=== PATIENT | male | born 1945 | race Caucasian/White ===

== ENCOUNTER 2020-03-09 17:30 | Inpatient (IN) | payer MEDICARE ==
[~2020-03-09] VITALS: Ht 188 cm; Wt 79.3 kg
[2020-03-09 18:02] LABS: BASOPHILS % (AUTO) 0 % (0-10); EOSINOPHILS # (AUTO) 0.1 10^3/uL (0.0-0.3); EOSINOPHILS % (AUTO) 0 % (0-10); HEMATOCRIT 49 % (40-54); HEMOGLOBIN 15.9 g/dL (13.3-17.7); LYMPHOCYTES % (AUTO) 17 % (12-44); MEAN CORPUSCULAR HEMOGLOBIN 30 pg (25-34); MEAN CORPUSCULAR HGB CONC 33 g/dL (32-36); MEAN CORPUSCULAR VOLUME 91 fL (80-99); MONOCYTES # (AUTO) 0.8 10^3/uL (0.0-1.0); MONOCYTES % (AUTO) 7 % (0-12); NEUTROPHILS # (AUTO) 9.2 10^3/uL (1.8-7.8); NEUTROPHILS % (AUTO) 76 % (42-75); PLATELET COUNT 323 10^3/uL (130-400); WHITE BLOOD COUNT 12.2 10^3/uL (4.3-11.0)
[2020-03-09 18:05] LABS: ALBUMIN 4.2 GM/DL (3.2-4.5); POTASSIUM 3.9 MMOL/L (3.6-5.0)
[2020-03-09 18:06] LABS: CALCIUM 9.1 MG/DL (8.5-10.1)
[2020-03-09 18:07] LABS: TOTAL PROTEIN 7.7 GM/DL (6.4-8.2)
[2020-03-09 18:09] LABS: BILIRUBIN,TOTAL 1.1 MG/DL (0.1-1.0)
[2020-03-09 18:11] LABS: CREATININE SERUM 1.69 MG/DL (0.60-1.30)
--- NOTE | 2020-03-09 18:12 | ED Abdominal Pain ---
General Chief Complaint: Abdominal/GI Problems Stated Complaint: ABDOMINAL PAIN, BLOATING, CONSTIPATED Nursing Triage Note: PT STATES BLOATING THAT STARTED 3 WEEKS AGO, VOMITING, SWEATING, CHILLS, DIARRHEA, THAT ALL STOPPED LAST FRIDAY. ABD PAIN CONTINUED AND CONSTIPATION, MEDIUM SIZE SOFT BM YESTERDAY AFTER THE PT HAD BEEN TAKING DUCOLAX TABLETS. Sepsis Screen: No Definite Risk (NORBERT HOLLIDAY) History of Present Illness Date Seen by Provider: Mar 09, 2020 Time Seen by Provider: 17:50 Initial Comments Pt here for abdominal bloating present for last days. He state that until yesterday he had not had a bowel movement for 3 weeks. He reports it is normal for him to have a bowel movement every 10-14 days. He states that he took some dolculax yesterday which did help him have a medium sized soft bowel movement. He states that three weeks ago he had some vomiting and diarrhea, but has been fine since then. He as been eating normally until the few days when the boating started to increase he has had less appetite.Denies any blood in the stools or pain outside the uncomfortable bloating. Timing/Duration: 2-3 Days Severity/Quality: Mild Radiation: No Radiation Activities at Onset: None (NORBERT HOLLIDAY) Allergies and Home Medications Allergies Coded Allergies: No Known Drug Allergies (Unverified , 03/09/20) Home Medications No Active Prescriptions or Reported Meds Patient Home Medication List Home Medication List Reviewed: Yes (ANGEL CASTAÑEDA APRN) Review of Systems Review of Systems Constitutional: No chills, No fever, No weakness EENTM: No Nose Congestion, No Throat Pain Respiratory: Denies Cough, Denies Shortness of Air; Wheezing (chronic) Cardiovascular: Denies Chest Pain, Denies Edema, Denies Syncope Gastrointestinal: Abdomen Distended, Constipated; Denies Diarrhea, Denies Nausea; Poor Appetite; Denies Vomiting Genitourinary: Denies Burning, Denies Frequency Musculoskeletal: No back pain Skin: No lesions, No lumps Psychiatric/Neurological: Denies Anxiety, Denies Headache, Denies Numbness, Denies Tingling (NORBERT HOLLIDAY) Past Dzsohxl-Keycaw-Vgpomt Hx Patient Social History Alcohol Use: Denies Use Smoking Status: Current Everyday Smoker Type Used: Cigarettes Recent Infectious Disease Expo: No Recent Hopitalizations: No (NORBERT HOLLIDAY [employer] [facility]) Seasonal Allergies Seasonal Allergies: No ([facility]) Past Medical History Surgeries: Yes (EYES) Respiratory: Yes Asthma, Chronic Bronchitis, COPD Cardiac: No Neurological: No Genitourinary: No Gastrointestinal: Yes Chronic Constipation Musculoskeletal: No Endocrine: No HEENT: Yes Cataract Cancer: No Psychosocial: No Integumentary: No (NORBERT HOLLIDAY) Physical Exam Vital Signs Vital Signs - First Documented 03/09/20 17:41 Temp 35.3 Pulse 82 Resp 20 B/P (MAP) 141/94 (110) Pulse Ox 98 O2 Delivery Room Air (ANGEL CASTAÑEDA APRN) Vital Signs Capillary Refill : Less Than 3 Seconds (NORBERT HOLLIDAY [facility]) Height/Weight/BMI Height: '" Weight: lbs. oz. kg; 23.00 BMI Method: General Appearance: WD/WN, no apparent distress HEENT: PERRL/EOMI, normal ENT inspection, pharynx normal Neck: non-tender, full range of motion, supple Respiratory: chest non-tender, no respiratory distress, wheezing Cardiovascular: normal peripheral pulses, regular rate, rhythm Gastrointestinal: normal bowel sounds, non tender, distended Extremities: normal range of motion, non-tender, no pedal edema, no calf tenderness Back: normal inspection, no CVA tenderness, no vertebral tenderness Neurologic/Psychiatric: no motor/sensory deficits, alert, normal mood/affect, oriented x 3 Skin: normal color, warm/dry (NORBERT HOLLIDAY [employer] [facility]) Progress/Results/Core Measures Results/Orders Lab Results Laboratory Tests Test 03/09/20 17:45 Range/Units White Blood Count 12.2 H 4.3-11.0 10^3/uL Red Blood Count 5.35 4.30-5.52 10^6/uL Hemoglobin 15.9 13.3-17.7 g/dL Hematocrit 49 40-54 % Mean Corpuscular Volume 91 80-99 fL Mean Corpuscular Hemoglobin 30 25-34 pg Mean Corpuscular Hemoglobin Concent 33 32-36 g/dL Red Cell Distribution Width 13.5 10.0-14.5 % Platelet Count 323 130-400 10^3/uL Mean Platelet Volume 11.0 9.0-12.2 fL Immature Granulocyte % (Auto) 0 % Neutrophils (%) (Auto) 76 H 42-75 % Lymphocytes (%) (Auto) 17 12-44 % Monocytes (%) (Auto) 7 0-12 % Eosinophils (%) (Auto) 0 0-10 % Basophils (%) (Auto) 0 0-10 % Neutrophils # (Auto) 9.2 H 1.8-7.8 10^3/uL Lymphocytes # (Auto) 2.0 1.0-4.0 10^3/uL Monocytes # (Auto) 0.8 0.0-1.0 10^3/uL Eosinophils # (Auto) 0.1 0.0-0.3 10^3/uL Basophils # (Auto) 0.0 0.0-0.1 10^3/uL Immature Granulocyte # (Auto) 0.0 0.0-0.1 10^3/uL Sodium Level 139 135-145 MMOL/L Potassium Level 3.9 3.6-5.0 MMOL/L Chloride Level 103 98-107 MMOL/L Carbon Dioxide Level 23 21-32 MMOL/L Anion Gap 13 5-14 MMOL/L Blood Urea Nitrogen 23 H 7-18 MG/DL Creatinine 1.69 H 0.60-1.30 MG/DL Estimat Glomerular Filtration Rate 40 BUN/Creatinine Ratio 14 Glucose Level 109 H 70-105 MG/DL Calcium Level 9.1 8.5-10.1 MG/DL Corrected Calcium 8.9 8.5-10.1 MG/DL Total Bilirubin 1.1 H 0.1-1.0 MG/DL Aspartate Amino Transf (AST/SGOT) 15 5-34 U/L Alanine Aminotransferase (ALT/SGPT) 12 0-55 U/L Alkaline Phosphatase 83 40-136 U/L C-Reactive Protein High Sensitivity 1.50 H 0.00-0.50 MG/DL Total Protein 7.7 6.4-8.2 GM/DL Albumin 4.2 3.2-4.5 GM/DL Lipase 44 8-78 U/L (ANGEL CASTAÑEDA APRN) My Orders Orders - ANGEL CASTAÑEDA APRN Lipase (03/09/20 18:02) Ct Abdomen/Pelvis Wo (03/09/20 18:29) Benzocaine Extension Tube (Hurricaine Ex (03/09/20 19:30) Benzocaine Extension Tube (Hurricaine Ex (03/09/20 19:45) Carcinoembryonic Antigen (03/09/20 19:46) Chest 1 View, Ap/Pa Only (03/09/20 19:46) (ANGEL CASTAÑEDA APRN) Medications Given in ED Current Medications Medications Dose Ordered Sig/Vernon Route Start Time Stop Time Status Last Admin Dose Admin Benzocaine 1 ea ONCE ONCE XX 03/09/20 19:45 03/09/20 19:46 DC 03/09/20 19:45 1 EA (ANGEL CASTAÑEDA APRN) Vital Signs/I&O 03/09/20 17:41 Temp 35.3 Pulse 82 Resp 20 B/P (MAP) 141/94 (110) Pulse Ox 98 O2 Delivery Room Air (ANGEL CASTAÑEDA APRN) Blood Pressure Mean: 110 Diagnostic Imaging Diagonstic Imaging: CT Comments NAME: VINCE LEACH [facility] REC#: [id number] PT STATUS: REG ER : 1945 PHYSICIAN: ANGEL CASTAÑEDA APRN ADMIT DATE: 03/09/20/ER Draft Date of Exam:03/09/20 CT ABDOMEN/PELVIS WO PROCEDURE: CT abdomen and pelvis without contrast. TECHNIQUE: Multiple contiguous axial images were obtained through the abdomen and pelvis without the use of intravenous contrast. Auto Exposure Controls were utilized during the CT exam to meet ALARA standards for radiation dose reduction. INDICATION: Constipation. FINDINGS: Unenhanced images of the gallbladder, pancreas, adrenal glands and spleen are unremarkable. There is an approximately 1.5 cm low-density nodule in the posterior right hepatic lobe with suggestion of additional low-density nodules in the dome of the left lobe and more superiorly in the right lobe. Evaluation of kidneys is limited without intravenous contrast; however, no stone or hydronephrosis is identified. There is contrast opacification of the stomach and duodenum. There is moderate dilatation of small bowel loops, diffusely. There is also moderate amount of fluid distention of the ascending colon. Transverse colon and descending colon are decompressed. There is an annular region of mural thickening in the midportion of the ascending colon which may represent the obstruction. No free fluid is identified in the abdomen or pelvis and there is no evidence of pathologic adenopathy. Lower lumbar degenerative disc disease is noted. IMPRESSION: Findings are compatible with high-grade bowel obstruction that appears to be related to annular lesion in the mid ascending colon. This may represent colon cancer and clinical correlation would be of use. In addition, there are several low-density lesions throughout the liver which would indicate metastatic disease. Dictated on workstation # [id number] Dict: 03/09/201916 Trans: 03/09/201926 [id number] Interpreted by: JAIMEE NAVARRO MD Electronically signed by: (ANGEL CASTAÑEDA APRN) Departure Communication (Admissions) Spoke with Dr. Pike, will admit to medicine, consult him. Pain and nausea control. Nasogastric tube to decompress the proximal bowel. I have seen the patient as well as Norbert, agree with the plan of care. His abdomen is distended with high-pitched bowel sounds. After reviewing the CT we will insert a nasogastric tube. (ANGEL CASTAÑEDA APRN) Impression Primary Impression: Colonic obstruction Additional Impression: Apple core lesion of colon Disposition: ADMITTED INPATIENT Condition: Stable Admissions Decision to Admit Reason: Admit from ER (General) Decision to Admit/Date: Mar 09, 2020 Time/Decision to Admit Time: 19:24 (ANGEL CASTAÑEDA APRN) Departure-Patient Inst. Referrals: NO,LOCAL PHYSICIAN (PCP/Family) Primary Care Physician Scripts No Active Prescriptions or Reported Meds NORBERT HOLLIDAY MED STUD Mar 09, 2020 18:12 ANGEL CASTAÑEDA APRN Mar 09, 2020 19:25
--- NOTE | 2020-03-09 19:27 | Diagnostic Imaging Report ---
PROCEDURE: CT abdomen and pelvis without contrast. TECHNIQUE: Multiple contiguous axial images were obtained through the abdomen and pelvis without the use of intravenous contrast. Auto Exposure Controls were utilized during the CT exam to meet ALARA standards for radiation dose reduction. INDICATION: Constipation. FINDINGS: Unenhanced images of the gallbladder, pancreas, adrenal glands and spleen are unremarkable. There is an approximately 1.5 cm low-density nodule in the posterior right hepatic lobe with suggestion of additional low-density nodules in the dome of the left lobe and more superiorly in the right lobe. Evaluation of kidneys is limited without intravenous contrast; however, no stone or hydronephrosis is identified. There is contrast opacification of the stomach and duodenum. There is moderate dilatation of small bowel loops, diffusely. There is also moderate amount of fluid distention of the ascending colon. Transverse colon and descending colon are decompressed. There is an annular region of mural thickening in the midportion of the ascending colon which may represent the obstruction. No free fluid is identified in the abdomen or pelvis and there is no evidence of pathologic adenopathy. Lower lumbar degenerative disc disease is noted. IMPRESSION: Findings are compatible with high-grade bowel obstruction that appears to be related to annular lesion in the mid ascending colon. This may represent colon cancer and clinical correlation would be of use. In addition, there are several low-density lesions throughout the liver which would indicate metastatic disease. Dictated by: Dictated on workstation # [id number]
[2020-03-09] MEDS ORDERED: HURRICAINE EXT TUBE (BENZOCAINE) ONE (19:30)
[2020-03-09] MEDS ORDERED: HURRICAINE EXT TUBE (BENZOCAINE) XX ONE (19:45)
--- NOTE | 2020-03-09 19:45 | NUR ---
RIGHT NARE NGT 16FR PLACED BY Praneeth CASTAÑEDA APRN AND HOOKED TO LWS. APPROX 100CC OF BROWN GASTRIC CONTENT RETURN.
--- NOTE | 2020-03-09 20:09 | Consultation - Surgery ---
History of Present Illness History of Present Illness Patient Consulted On(cornelia/time) 03/09/20 20:03 Time Seen by Provider: 19:24 History of Present Illness Surgery asked to consult regarding Partial Bowel Obstruction. HPI per ED: PT STATES BLOATING THAT STARTED 3 WEEKS AGO, VOMITING, SWEATING, CHILLS, DIARRHEA, THAT ALL STOPPED LAST FRIDAY. ABD PAIN CONTINUED AND CONSTIPATION, MEDIUM SIZE SOFT BM YESTERDAY AFTER THE PT HAD BEEN TAKING DUCOLAX TABLETS. Pt here for abdominal bloating present for last days. He state that until yesterday he had not had a bowel movement for 3 weeks. He reports it is normal for him to have a bowel movement every 10-14 days. He states that he took some dolculax yesterday which did help him have a medium sized soft bowel movement. He states that three weeks ago he had some vomiting and diarrhea, but has been fine since then. He as been eating normally until the few days when the bloating started to increase he has had less appetite.Denies any blood in the stools or pain outside the uncomfortable bloating. Timing/Duration: 2-3 Days Severity/Quality: Mild Radiation: No Radiation Activities at Onset: None When I spoke to pt this evening he states that his belly is much more distended than it has ever been. He describes pain as 3-4 out of 10, across the entire abdomen that is dull. He states he has never had a colonoscopy. Denied any hx of melena or hematochezia. Allergies and Home Medications Allergies Coded Allergies: No Known Drug Allergies (Unverified , 03/09/20) Home Medications No Active Prescriptions or Reported Meds Patient Home Medication List Home Medication List Reviewed: Yes Past Nsdwbhd-Sbiiqp-Hczfdu Hx Patient Social History Drug of Choice: Denies Smoking Status: Current Everyday Smoker Type Used: Cigarettes Recent Hopitalizations: No Alcohol Use?: Yes Seasonal Allergies Seasonal Allergies: No Surgeries History of Surgeries: Yes (EYES) Respiratory History of Respiratory Disorde: Yes Respiratory Disorders: Asthma, Chronic Bronchitis, COPD Cardiovascular History of Cardiac Disorders: No Neurological History of Neurological Disord: No Reproductive System Hx Reproductive Disorders: No Sexually Transmitted Disease: No Genitourinary History of Genitourinary Disor: No Gastrointestinal History of Gastrointestinal Di: Yes Gastrointestinal Disorders: Chronic Constipation Musculoskeletal History of Musculoskeletal Dis: No Endocrine History of Endocrine Disorders: No HEENT History of HEENT Disorders: Yes HEENT Disorders: Cataract Cancer History of Cancer: No Psychosocial History of Psychiatric Problem: No Integumentary History of Skin or Integumenta: No Family Medical History Significant Family History: Diabetes (denies either his parent had DM) Review of Systems-General Constitutional: chills, diaphoresis, weakness, weight gain EENTM: No blurred vision, No double vision, No mouth pain, No mouth swelling, No throat pain, No throat swelling Respiratory: No dyspnea on exertion, No hemoptysis, No short of breath Cardiovascular: No chest pain, No edema, No palpitations Gastrointestinal: abdominal pain, constipation; No dysphagia, No jaundice; loss of appetite, nausea, vomiting Genitourinary: No dysuria, No frequency, No hematuria Musculoskeletal: joint pain, joint swelling, muscle stiffness Skin: No change in color, No change in hair/nails Psychiatric/Neurological: Denies Anxiety, Denies Depressed, Denies Seizure, Denies Tremors Other HEMATOLOGY: Pt denies any hx of abnormal bleeding or bruising Physical Exam-General Problems Physical Exam Vital Signs Vital Signs - First Documented 03/09/20 17:41 Temp 35.3 Pulse 82 Resp 20 B/P (MAP) 141/94 (110) Pulse Ox 98 O2 Delivery Room Air Capillary Refill : Less Than 3 Seconds General Appearance: WD/WN, mild distress Eyes: Bilateral Eye PERRL, Bilateral Eye EOMI HEENT: pharynx normal; No scleral icterus (R), No scleral icterus (L) Neck: non-tender, full range of motion Respiratory: lungs clear, normal breath sounds, no respiratory distress, no accessory muscle use Cardiovascular: regular rate, rhythm, no murmur Gastrointestinal: no organomegaly, distended (and tense); No guarding; tenderness (diffusely) Rectal: deferred Back: no CVA tenderness, no vertebral tenderness Extremities: normal range of motion, no pedal edema, no calf tenderness, normal capillary refill Neurologic/Psychiatric: change consultant II-XII nml as tested, no motor/sensory deficits, alert, normal mood/affect, oriented x 3 Skin: normal color, warm/dry Lymphatic: no adenopathy (axillary, cervical or inguinal) Data Review Labs Laboratory Tests 03/09/20 17:45: White Blood Count 12.2H, Red Blood Count 5.35, Hemoglobin 15.9, Hematocrit 49, Mean Corpuscular Volume 91, Mean Corpuscular Hemoglobin 30, Mean Corpuscular Hemoglobin Concent 33, Red Cell Distribution Width 13.5, Platelet Count 323, Mean Platelet Volume 11.0, Immature Granulocyte % (Auto) 0, Neutrophils (%) (Auto) 76H, Lymphocytes (%) (Auto) 17, Monocytes (%) (Auto) 7, Eosinophils (%) (Auto) 0, Basophils (%) (Auto) 0, Neutrophils # (Auto) 9.2H, Lymphocytes # (Auto) 2.0, Monocytes # (Auto) 0.8, Eosinophils # (Auto) 0.1, Basophils # (Auto) 0.0, Immature Granulocyte # (Auto) 0.0, Sodium Level 139, Potassium Level 3.9, Chloride Level 103, Carbon Dioxide Level 23, Anion Gap 13, Blood Urea Nitrogen 23H, Creatinine 1.69H, Estimat Glomerular Filtration Rate 40, BUN/Creatinine Ratio 14, Glucose Level 109H, Calcium Level 9.1, Corrected Calcium 8.9, Total Bilirubin 1.1H, Aspartate Amino Transf (AST/SGOT) 15, Alanine Aminotransferase (ALT/SGPT) 12, Alkaline Phosphatase 83, C-Reactive Protein High Sensitivity 1.50H, Total Protein 7.7, Albumin 4.2, Lipase 44 Radiology Signed Date of Exam:03/09/20 CT ABDOMEN/PELVIS WO PROCEDURE: CT abdomen and pelvis without contrast. TECHNIQUE: Multiple contiguous axial images were obtained through the abdomen and pelvis without the use of intravenous contrast. Auto Exposure Controls were utilized during the CT exam to meet ALARA standards for radiation dose reduction. INDICATION: Constipation. FINDINGS: Unenhanced images of the gallbladder, pancreas, adrenal glands and spleen are unremarkable. There is an approximately 1.5 cm low-density nodule in the posterior right hepatic lobe with suggestion of additional low-density nodules in the dome of the left lobe and more superiorly in the right lobe. Evaluation of kidneys is limited without intravenous contrast; however, no stone or hydronephrosis is identified. There is contrast opacification of the stomach and duodenum. There is moderate dilatation of small bowel loops, diffusely. There is also moderate amount of fluid distention of the ascending colon. Transverse colon and descending colon are decompressed. There is an annular region of mural thickening in the midportion of the ascending colon which may represent the obstruction. No free fluid is identified in the abdomen or pelvis and there is no evidence of pathologic adenopathy. Lower lumbar degenerative disc disease is noted. IMPRESSION: Findings are compatible with high-grade bowel obstruction that appears to be related to annular lesion in the mid ascending colon. This may represent colon cancer and clinical correlation would be of use. In addition, there are several low-density lesions throughout the liver which would indicate metastatic disease. Dictated by: Dictated on workstation # [id number] Dict: 03/09/201916 Trans: 03/09/201957 [facility] [id number] Interpreted by: JAIMEE NAVARRO MD Electronically signed by: JAIMEE NAVARRO MD 03/09/201957 Assessment/Plan Assessment/Plan Assessment/Plan Partial Bowel Obstruction ??Colonic Mass Abdominal distention and pain Pt had an NGT placed in the ER, he will be NPO, IV fluids, pain control and anti-emetics as needed. I reviewed the CT myself, before radiology reading, and saw that there was a possible lesion in the ascending colon. Above this lesion there was a lot of retained fluid and almost none distal to it. NGT should help with decompression; which will help with his distention and pain. I asked the ER AGRICULTURE LABORER to add CEA to labs already drawn and estrellita l attempt a colonoscopy to get to this lesion for a pathology diagnosis. I talked to pt about the procedure; going over risks and complications not limited to pain, bleeding, infection and even intestinal perforation. We talked about the possibility that I may not be able to get to that area because he has not done a colon prep. We also talked about the fact that this narrowing may cause us to do a colon resection even if it is not a malignancy; because of the stricture and bowel obstruction. He understood and all questions answered to his satisfaction. YUN SUN DO Mar 09, 2020 20:08
--- NOTE | 2020-03-09 20:13 | Diagnostic Imaging Report ---
Indication: Cough COMPARISON: No previous study is available for comparison at this time. FINDINGS: Heart size and pulmonary vasculature are within normal limits, and the lungs are clear, bilaterally. Nasogastric tube passes below the diaphragm and projects over the upper stomach. IMPRESSION: Unremarkable chest. Dictated by: Dictated on workstation # [id number]
--- NOTE | 2020-03-09 20:21 | NUR ---
Praneeth CASTAÑEDA, WEB APPLICATIONS ADMINISTRATOR UPDATED PT BOOSTER OPERATOR VIVIANE CAVAZOS. NOTIFIED MEDICAL UNIT RN TIMEFRAMES WHEN WILL CALL PT CONTACTS. SHE MAY BE REACHED AT CELL #[phone] WORK # [phone].
--- NOTE | 2020-03-09 20:45 | NUR ---
VINCE LEACH admitted to room 408-1, with an admitting diagnosis of SBO 2 DEGREE COLONIC VS STRICTURE, on 03/09/20 from ED via , accompanied by STAFF. VINCE LEACH introduced to surroundings, call light, bed controls, phone, TV, temperature control, lights, meal times, smoking policy, visitor policy, side rail policy, bathrooms and showers. Patient Rights given to patient in the handbook. VINCE LEACH verbalizes understanding that [facility] is not responsible for the loss or damage to any personal effects or valuables that are kept in the patients possession during their hospitalization.
[2020-03-09 20:47] VITALS: BP 154/80
[2020-03-09] MEDS ORDERED: LORazepam INJ 2 MG/ML (ATIVAN) VIAL IVP PRN (21:30)
[2020-03-09] MEDS ORDERED: ONDANSETRON 4 MG/2 ML (SDV) Z0FRAN IVP PRN (21:30)
[2020-03-09] MEDS ORDERED: fentaNYL INJECTION 100 MCG/2 ML AMP IVP PRN (21:30)
[2020-03-09] MEDS: LACTATED RINGERS 1,000 ML IV SCH (21:55)
[2020-03-09 23:36] VITALS: BP 135/84
[2020-03-10] VITALS (18 sets, daily range): BP systolic 123–177; BP diastolic 65–95
[2020-03-10] MEDS: LACTATED RINGERS 1,000 ML IV SCH ×4 (04:14→19:57)
[2020-03-10 04:35] LABS: CLARITY,URINE CLOUDY; COLOR,URINE DARK YELLOW; GLUCOSE, URINE (UA) NEGATIVE (NEGATIVE); KETONES,URINE 1+ (NEGATIVE); LEUKOCYTE ESTERASE ,URINE 2+ (NEGATIVE); NITRITE,URINE NEGATIVE (NEGATIVE); PROTEIN,URINE 1+ (NEGATIVE)
[2020-03-10 04:48] LABS: BACTERIA,URINE MODERATE /HPF; BILIRUBIN,URINE 1+ (NEGATIVE); WBC,URINE 50-100 /HPF
[2020-03-10 04:49] LABS: RENAL EPITHELIAL CELLS,URINE 0-2 /HPF; SQUAMOUS EPITHELIAL CELL,UR 0-2 /HPF
[2020-03-10 05:57] LABS: BASOPHILS # (AUTO) 0.1 10^3/uL (0.0-0.1); BASOPHILS % (AUTO) 1 % (0-10); EOSINOPHILS # (AUTO) 0.1 10^3/uL (0.0-0.3); EOSINOPHILS % (AUTO) 1 % (0-10); HEMATOCRIT 43 % (40-54); HEMOGLOBIN 14.1 g/dL (13.3-17.7); LYMPHOCYTES % (AUTO) 19 % (12-44); MEAN CORPUSCULAR HEMOGLOBIN 30 pg (25-34); MEAN CORPUSCULAR HGB CONC 33 g/dL (32-36); MEAN CORPUSCULAR VOLUME 90 fL (80-99); MEAN PLATELET VOLUME 11.4 fL (9.0-12.2); MONOCYTES # (AUTO) 0.9 10^3/uL (0.0-1.0); MONOCYTES % (AUTO) 8 % (0-12); NEUTROPHILS # (AUTO) 7.8 10^3/uL (1.8-7.8); NEUTROPHILS % (AUTO) 72 % (42-75); PLATELET COUNT 262 10^3/uL (130-400); WHITE BLOOD COUNT 10.9 10^3/uL (4.3-11.0)
[2020-03-10 05:58] LABS: ALBUMIN 3.4 GM/DL (3.2-4.5); POTASSIUM 3.8 MMOL/L (3.6-5.0)
[2020-03-10 05:59] LABS: CALCIUM 8.5 MG/DL (8.5-10.1)
[2020-03-10 06:00] LABS: TOTAL PROTEIN 6.3 GM/DL (6.4-8.2)
[2020-03-10 06:04] LABS: CREATININE SERUM 1.4 MG/DL (0.60-1.30)
--- NOTE | 2020-03-10 07:42 | Progress Note - Surgery ---
MERCEDEZ MARTIN,MED STUDENT 03/10/20 0742: Subjective Date Seen by a Provider: Mar 10, 2020 Time Seen by a Provider: 06:50 Subjective/Events-last exam Pt seen and examined this morning. He states he is feeling much better than yesterday. Reports abdominal distension has decreased and he is no longer nauseous. Denies any abdominal pain. States he has not had a bowel movement but did pass a large amount of gas. Review of Systems General: No Chills; Fatigue HEENT: Sore Throat Pulmonary: No Dyspnea, No Cough Cardiovascular: No: Chest Pain, Palpitations, Edema Gastrointestinal: Constipation; No: Nausea, Vomiting, Abdominal Pain Neurological: Weakness; No: Confusion Objective Exam Vital Signs Date Time Temp Pulse Resp B/P (MAP) Pulse Ox O2 Delivery O2 Flow Rate FiO2 03/10/20 04:12 36.4 69 18 147/83 (104) 94 Room Air 03/09/20 23:36 36.6 70 20 135/84 (101) 96 Room Air 03/09/20 20:47 36.1 70 18 154/80 (104) 97 Room Air 03/09/20 20:45 96 Room Air 03/09/20 20:30 35.3 73 16 148/92 (110) 96 Room Air 03/09/20 17:41 35.3 82 20 141/94 (110) 98 Room Air I & O 03/10/20 07:00 Intake Total 1000 ml Output Total 500 ml Balance 500 ml Capillary Refill : Less Than 3 Seconds General Appearance: No Apparent Distress HEENT: PERRL/EOMI; No Moist Mucous Membranes; Other (NGT in place) Respiratory: No Accessory Muscle Use, No Respiratory Distress, Wheezing (throughout) Cardiovascular: Regular Rate, Rhythm, No Edema, No Murmur Gastrointestinal: non tender, soft, distended; No guarding Neurologic/Psychiatric: Alert, Oriented x3, Normal Mood/Affect Skin: Normal Color, Warm/Dry Results Lab Laboratory Tests 03/09/20 17:45: White Blood Count 12.2H, Red Blood Count 5.35, Hemoglobin 15.9, Hematocrit 49, Mean Corpuscular Volume 91, Mean Corpuscular Hemoglobin 30, Mean Corpuscular Hemoglobin Concent 33, Red Cell Distribution Width 13.5, Platelet Count 323, Mean Platelet Volume 11.0, Immature Granulocyte % (Auto) 0, Neutrophils (%) (Auto) 76H, Lymphocytes (%) (Auto) 17, Monocytes (%) (Auto) 7, Eosinophils (%) (Auto) 0, Basophils (%) (Auto) 0, Neutrophils # (Auto) 9.2H, Lymphocytes # (Auto) 2.0, Monocytes # (Auto) 0.8, Eosinophils # (Auto) 0.1, Basophils # (Auto) 0.0, Immature Granulocyte # (Auto) 0.0, Sodium Level 139, Potassium Level 3.9, Chloride Level 103, Carbon Dioxide Level 23, Anion Gap 13, Blood Urea Nitrogen 23H, Creatinine 1.69H, Estimat Glomerular Filtration Rate 40, BUN/Creatinine Ratio 14, Glucose Level 109H, Calcium Level 9.1, Corrected Calcium 8.9, Total Bilirubin 1.1H, Aspartate Amino Transf (AST/SGOT) 15, Alanine Aminotransferase (ALT/SGPT) 12, Alkaline Phosphatase 83, C-Reactive Protein High Sensitivity 1.50H, Total Protein 7.7, Albumin 4.2, Lipase 44 03/09/20 23:15: 03/10/20 05:23: White Blood Count 10.9, Red Blood Count 4.76, Hemoglobin 14.1, Hematocrit 43, Mean Corpuscular Volume 90, Mean Corpuscular Hemoglobin 30, Mean Corpuscular Hemoglobin Concent 33, Red Cell Distribution Width 13.4, Platelet Count 262, Mean Platelet Volume 11.4, Immature Granulocyte % (Auto) 0, Neutrophils (%) (Auto) 72, Lymphocytes (%) (Auto) 19, Monocytes (%) (Auto) 8, Eosinophils (%) (Auto) 1, Basophils (%) (Auto) 1, Neutrophils # (Auto) 7.8, Lymphocytes # (Auto) 2.0, Monocytes # (Auto) 0.9, Eosinophils # (Auto) 0.1, Basophils # (Auto) 0.1, Immature Granulocyte # (Auto) 0.0, Sodium Level 139, Potassium Level 3.8, Chloride Level 106, Carbon Dioxide Level 21, Anion Gap 12, Blood Urea Nitrogen 25H, Creatinine 1.40H, Estimat Glomerular Filtration Rate 50, BUN/Creatinine Ratio 18, Glucose Level 92, Calcium Level 8.5, Corrected Calcium 9.0, Total Bilirubin 1.0, Aspartate Amino Transf (AST/SGOT) 19, Alanine Aminotransferase (ALT/SGPT) 10, Alkaline Phosphatase 68, Total Protein 6.3L, Albumin 3.4 Assessment/Plan Assessment/Plan Assessment/Plan Partial Bowel Obstruction Possible Colonic Mass- seen on CT in ascending colon Plan for colonoscopy today CEA pending Continue IV fluids, pain control and anti-emetics as needed NGT to intermittent suction Encourage ambulation, IS DVT/GI ppx Medical management per primary BHUPINDER PIKE DO 03/10/20 1220: Subjective Time Seen by a Provider: 12:15 Subjective/Events-last exam Pt seen and examined, states he feels 100% better. Denies BM and still has minimal abdominal pain. Review of Systems General: No Chills; Fatigue Pulmonary: No Dyspnea, No Cough Cardiovascular: No: Chest Pain, Palpitations Gastrointestinal: Constipation, Other (distention); No: Nausea, Vomiting, Abdominal Pain Objective Exam General Appearance: No Apparent Distress HEENT: PERRL/EOMI, Other (NGT in place) Respiratory: No Accessory Muscle Use, No Respiratory Distress, Wheezing (throughout) Cardiovascular: Regular Rate, Rhythm, No Murmur Gastrointestinal: non tender, soft, distended; No guarding Assessment/Plan Assessment/Plan Assessment/Plan Partial Bowel Obstruction Possible Colonic Mass- seen on CT in ascending colon Plan for colonoscopy today CEA pending, Continue IV fluids, pain control and anti-emetics as needed NGT to intermittent suction, Encourage ambulation and IS, DVT/GI ppx Supervisory-Addendum Brief Verification & Attestation Participated in pt care: history, MDM, physical Personally performed: exam, history, MDM Care discussed with: Medical Student Procedures: n/a Verification and Attestation of Medical Student E/M Service A medical student performed and documented this service. I then reviewed and verified all information documented by the medical student and made modifications to such information, when appropriate. I personally performed a physical exam, medical decision making and then discussed any differences between the notes and made revisions as necessary to create one note. Bhupinder Pike , 03/10/20 , 12:20 MERCEDEZ MARTIN,MED STUDENT Mar 10, 2020 07:42 BHUPINDER PIKE DO Mar 10, 2020 12:20
[2020-03-10] MEDS ORDERED: FLU QUAD HIGH DOSE 240 MCG/0.7 ML 2020-21 (FLUZONE) IM ONE (08:00)
--- NOTE | 2020-03-10 08:40 | History & Physical-Hospitalist ---
SENAIT ROMERO,MED STUDENT 03/10/20 0840: History of Present Illness HPI/Chief Complaint Patient is a 74yo male with a PMH of asthma and chronic constipation c/o abdominal bloating for the last x3 weeks. He states he normally only has a bowel movement every 10-14 days, but that before two days ago it had been three weeks since his last. He first noticed feeling bloated, and then notes he could not pass gas. He also had diarrhea for x1 week and nausea and some vomiting when the symptoms began, but these have since resolved. He notes he had been eating n ormally, but reports a decreased appetite and feeling full after small amounts of food for the last few days. He started taking Dulcolax 2 days ago, which helped him have a medium sized soft bm. He denies seeing any blood in the stool, and says the stool was brown in color. He denies pain with the bm. Denies fevers, chills, SOB, CP, palpitations. He denies experiencing similar symptoms in the past. Source: patient Exam Limitations: no limitations Date Seen 03/10/20 Attending Physician Jelly Saini MD PCP No,Local Physician Referring Physician Date of Admission Mar 09, 2020 at 19:52 Home Medications & Allergies Home Medications Reviewed patient Home Medication Reconciliation performed by pharmacy medication reconciliations processing technician and/or nursing. Patients Allergies have been reviewed. Allergies Allergies Coded Allergies No Known Drug Allergies (Unverified03/09/20) Past Vvtnpch-Ykhpkc-Ovigdv Hx Patient Social History Alcohol Use: Denies Use Recreational Drug Use: No Drug of Choice: Denies Smoking Status: Current Everyday Smoker (1.5 PPD) Type Used: Cigarettes Recent Foreign Travel: No Contact w/other who traveled: No Recent Hopitalizations: No Recent Infectious Disease Expo: No Seasonal Allergies Seasonal Allergies: No Past Medical History Respiratory: Asthma Reproductive: No Sexually Transmitted Disease: No Gastrointestinal: Chronic Constipation HEENT: Cataract Family History Diabetes (denies either his parent had DM) Review of Systems Constitutional: No chills, No diaphoresis, No dizziness, No fever EENTM: No hearing loss, No blurred vision, No vision loss Respiratory: No cough, No short of breath, No wheezing Cardiovascular: No chest pain, No palpitations, No syncope Gastrointestinal: abdominal pain (Bloating), constipation (Chronic); No hematemesis; loss of appetite; No melena; nausea, vomiting Genitourinary: No dysuria, No frequency, No pain Musculoskeletal: no symptoms reported Skin: No lesions, No lumps, No rash Psychiatric/Neurological: Denies Numbness, Denies Tingling Physical Exam Physical Exam Vital Signs Vital Signs - First Documented 03/09/20 17:41 Temp 35.3 Pulse 82 Resp 20 B/P (MAP) 141/94 (110) Pulse Ox 98 O2 Delivery Room Air Capillary Refill : Less Than 3 Seconds Height, Weight, BMI Height: '" Weight: lbs. oz. kg; 21.38 BMI Method: General Appearance: No Apparent Distress, WD/WN HEENT: PERRL/EOMI, Pharynx Normal, Moist Mucous Membranes Neck: Full Range of Motion, Non Tender, Supple Respiratory: Lungs Clear, No Accessory Muscle Use, No Respiratory Distress Cardiovascular: Regular Rate, Rhythm, No Murmur, Normal Peripheral Pulses Gastrointestinal: Normal Bowel Sounds, Non Tender, Soft, Distended; No Guarding Extremity: Non Tender, No Calf Tenderness, No Pedal Edema Neurologic/Psychiatric: Alert, Oriented x3, Normal Mood/Affect Skin: Normal Color, Warm/Dry Results Results/Procedures Labs Laboratory Tests 03/09/20 17:45 03/10/20 05:23 Patient resulted labs reviewed. Assessment/Plan Assessment and Plan Partial bowel obstruction w/ possible colonic mass Surgery consulted Lesion in ascending colon on CT per radiology NPO with NGT placed in preparation for colonoscopy today LR @ 150/hr Fentanyl prn Acute kidney injury Improving Continue IV fluid replacement Hypertension Continue to monitor SCD's for DVT prophylaxis Plan for colonoscopy today CEA pending Continue IV fluids, pain control and anti-emetics as needed NGT to intermittent suction Encourage ambulation, IS DVT/GI ppx Medical management per primary CRISPIN RYDER MD 03/10/20 1454: History of Present Illness Time Seen by a Provider: 10:00 Past Yxjchod-Jtdyrn-Lvruzt Hx Past Med/Social Hx: Reviewed Nursing Past Med/Soc Hx Results Results/Procedures Imaging: Reviewed Imaging Report Assessment/Plan Admission Diagnosis Colonic obstruction Admission Status: Inpatient Order (span 2 midnights) Reason for Inpatient Admission: see below Assessment and Plan Pt previously healthy with chronic constipation who presented to the ER after 3 weeks with a bowel movement. He attempted to take laxatives at home and had a small BM yesterday but still was very bloated. CT was done and revealed obstruction with possible mass. He was admitted for decompression with NGT and feels much better. He is now passing gas. Pain is well controlled. Awaiting colonoscopy this afternoon with Dr Pike. only request is for help to do fill out DPOA paperwork. High concern for malignancy, possibly will need oncology referral. Await pathology. Diagnosis/Problems Diagnosis/Problems (1) Colonic obstruction Status: Acute Supervisory-Addendum Brief Verification & Attestation Participated in pt care: history, MDM, physical Personally performed: exam, history, MDM, supervision of care Care discussed with: Medical Student Procedures: n/a Results interpretation: Verified all documentation Verification and Attestation of Medical Student E/M Service A medical student performed and documented this service in my presence. I reviewed and verified all information documented by the medical student and made modifications to such information, when appropriate. I personally performed the physical exam and medical decision making. Crispin Ryder, Mar 10, 2020,14:47 SENAIT ROMERO,MED STUDENT Mar 10, 2020 08:40 CRISPIN RYDER MD Mar 10, 2020 14:54
[2020-03-10] MEDS ORDERED: CHLORHEXIDINE 0.12% SOLN 15 ML (PERIDEX) UDC PO PRN (10:45)
--- NOTE | 2020-03-10 10:45 | NUR ---
Referral for advanced directive: Pt states he wished to completed an Advanced Directive, stating he had "put it off long enough," and arrived at peace with his decision. When asked how he felt now that his advance directive was complete, he replied "I feel good. I feel relieved." The pt appointed his friend and neighbor, Josefa, as the primary agent. Josefa is an RN at [employer]. Pt listed his cousin,Cordell Mae, as his secondary agent. Pipe Bowls Paint Trimmer offered empathic listening and engaged in rapport building throughout visit. The pt is Muslim and states his spiritual and emotional needs are being met at this time.
[2020-03-10] MEDS ORDERED: PROPOFOL INJECTION 50 ML IV ONE (12:02)
[2020-03-10] MEDS ORDERED: MIDAZOLAM 2 MG/2 ML (VERSED) VIAL ONE (12:02)
[2020-03-10] MEDS ORDERED: LACTATED RINGERS 1,000 ML IV ONE ×2 (12:09→13:00)
--- NOTE | 2020-03-10 12:46 | Progress Note-Post Operative ---
Post-Operative Progess Note Surgeon (s)/Excelsior Machine Operator (s) Surgeon YUN SUN DO Excelsior Machine Operator: JOANNA Pereira Pre-Operative Diagnosis Ascending colon mass Post-Operative Diagnosis same pending path Procedure & Operative Findings Date of Procedure 03/10/20 Procedure Performed/Findings Colon with hot bx Anesthesia Type IV sedation by HVAC TECHNICIAN RESIDENTIAL Estimated Blood Loss Estimated blood loss (mL): scant Specimens/Packing Specimens Removed asc colon mass bx YUN SUN DO Mar 10, 2020 12:46
--- NOTE | 2020-03-10 13:08 | NUR ---
Patient arrived back from colonoscopy at this time. Vitals stable. Patient alert and oriented. Will continue to monitor
--- NOTE | 2020-03-10 13:41 | NUR ---
SPOKE WITH THE PT TO COMPLETE THE MED REC PT DENIES TAKING ANY PRESCRIPTION OR OTC MEDICATIONS- THEREFORE I SET THE MED REC "NO MEDICATIONS"
--- NOTE | 2020-03-10 14:58 | Anesthesia-General Post-Op ---
MAC Patient Condition Mental Status/LOC: Same as Preop Cardiovascular: Satisfactory Nausea/Vomiting: Absent Respiratory: Satisfactory Pain: Controlled Complications: Absent Post Op Complications Complications None Follow Up Care/Instructions Patient Instructions None needed. Anesthesiology Discharge Order Discharge Order Patient is doing well, no complaints, stable vital signs, no apparent adverse anesthesia problems. No complications reported per nursing. MARCOS SHEPHERD CRNA Mar 10, 2020 14:58
[2020-03-10] MEDS ORDERED: LIDOCAINE/EPI 1%-1:100,000 (XYLOCAINE) 50 ML ONE (15:37)
[2020-03-10] MEDS ORDERED: LIDOCAINE PF 2% 5 ML (XYLOCAINE) VIAL ONE (15:42)
[2020-03-10] MEDS ORDERED: ROCURONIUM 10 MG/ML 5 ML SYRINGE IV ONE ×4 (15:42→17:11)
[2020-03-10] MEDS ORDERED: ONDANSETRON 4 MG/2 ML (SDV) Z0FRAN ONE (15:42)
[2020-03-10] MEDS ORDERED: proPOfol 200 MG/20 ML (DIPRIVAN) VIAL IV ONE (15:42)
[2020-03-10] MEDS ORDERED: fentaNYL INJECTION 100 MCG/2 ML AMP ONE ×2 (15:43→16:36)
[2020-03-10] MEDS ORDERED: GLYCOPYRROLATE 0.2 MG/ML (ROBINUL) 2 ML VIAL ONE (15:44)
[2020-03-10] MEDS ORDERED: NEOSTIGMINE 3 MG/3 ML VIAL ONE (15:44)
[2020-03-10] MEDS ORDERED: SEVOFLURANE (ULTANE) 15 ML INHAL SOLN ONE ×7 (15:44→18:25)
--- NOTE | 2020-03-10 15:59 | NUR ---
Staff arrived to take patient down for surgery at this time.
[2020-03-10] MEDS: LACTATED RINGERS 1,000 ML IV PRN ×2 (16:05→16:40)
[2020-03-10] MEDS ORDERED: metroNIDAZOLE 500MG/100ML IVPB 100 ML ONE (16:22)
[2020-03-10] MEDS ORDERED: ceFAZolin 2 GM IV Premixed 50 ML ONE (16:22)
[2020-03-10] MEDS ORDERED: BUPIVACAINE 0.5% 30 ML (SENSORCAINE) VIAL ONE (16:27)
[2020-03-10] MEDS ORDERED: SUCCINYLCHOLINE INJ 100 MG/5 ML SYR/VIAL ONE (16:27)
--- NOTE | 2020-03-10 17:47 | OPERATIVE REPORT ---
DATE OF SERVICE: 03/10/2020 PREOPERATIVE DIAGNOSIS: Ascending colon mass. POSTOPERATIVE DIAGNOSIS: Ascending colon mass, pending pathology. PROCEDURE: Colonoscopy with hot biopsy. SURGEON: Bhupinder Pike DO OPS ANALYST: Rika Byers MS4 ANESTHESIA: IV sedation by the TEACHING DIETITIAN. SPECIMEN: Biopsy from the ascending colon mass. BLOOD LOSS: Scant. FLUIDS: Per anesthesia. POSTOPERATIVE CONDITION: Stable. INDICATION FOR PROCEDURE: The patient is a 74-year-old male, who had partial bowel obstruction, looked like a colonic mass or stricture, wanted to try and get a pathological diagnosis. FINDINGS: The patient had a stricture or mass in the ascending colon. It was probably only opened about 2 or 3 mm. PROCEDURE NOTE: After informed consent was obtained, the patient was brought to the endoscopy suite, placed in bed in left lateral decubitus position. He was administered IV sedation by the TEACHING DIETITIAN who then monitored his vitals the entire time, heart rate, blood pressure and pulse ox. A scope was then inserted. He did have a lot of retained fecal material, able to push past this using some fluids to try and wash some of this away and then went on the outside, able to push all the way up into about 120 cm and able to get to this area in the ascending colon with a stricture and saw what looked like a possible mass or stricture almost like an apple core lesion, elected to do hot biopsy of this, got 3 hot biopsies and at this point, then slowly withdrew the scope insufflating to look circumferentially at the decker. Unfortunately, they were all covered with fecal material get a good visualization, but he could not get a prep because of this obstruction. Removed the scope. The patient tolerated the procedure, recovered in endoscopy suite. Job ID: [id number] DocumentID: [id number] Dictated Date: 03/10/2020 12:45:05 Cane Splicer Date: 03/10/2020 17:46:42 Dictated By: BHUPINDER PIKE DO
[2020-03-10] MEDS ORDERED: KETOROLAC 30 MG/ML VIAL IVP SCH (18:15)
[2020-03-10] MEDS ORDERED: ONDANSETRON 4 MG/2 ML (SDV) Z0FRAN IVP PRN (18:15)
--- NOTE | 2020-03-10 18:15 | Progress Note-Post Operative ---
Post-Operative Progess Note Surgeon (s)/Electrical Continuity Inspector (s) Surgeon YUN SUN DO Electrical Continuity Inspector: Lucía Pre-Operative Diagnosis Ascending colon mass Post-Operative Diagnosis same pending path Procedure & Operative Findings Date of Procedure 03/10/20 Procedure Performed/Findings 1) Open Right hemicolectomy 2) Enterotomy with manual decompression of small bowel Anesthesia Type GET Estimated Blood Loss Estimated blood loss (mL): 200ml Specimens/Packing Specimens Removed portion of TI, right colon and portion of transverse colon YUN SUN DO Mar 10, 2020 18:15
[2020-03-10] MEDS ORDERED: NALOXONE 0.4 MG/ML 1 ML (NARCAN) VIAL ONE (18:25)
--- NOTE | 2020-03-10 18:54 | NUR ---
DR. SUN GIVEN UPDATE ON PATIENT STATUS AT THIS TIME, PT STILL ON VENT. NEW ORDER RECEIVED TO CONSULT NEEMA AND DR. CUEVAS THROUGH NIGHT.
--- NOTE | 2020-03-10 18:55 | NUR ---
THIS RN NOTIFIED [facility] OF PATIENT STATUS/ARRIVAL TO ICU. NEW ORDER RECEIVED FOR FENTANYL IVP, SEE EMAR AND ORDER HX.
[2020-03-10] MEDS: fentaNYL INJECTION 100 MCG/2 ML AMP IVP PRN ×2 (19:08→21:19)
--- NOTE | 2020-03-10 19:29 | NUR ---
REPORT RECEIVED FROM FOREIGN LEGAL CONSULTANTROSALIND. THIS RN AND FOREIGN LEGAL CONSULTANTROSALIND, CALLED DOCTOR FAITH WITH UPDATE ON PATIENT'S STATUS.
[2020-03-10] MEDS: KETOROLAC 15 MG/ML VIAL IV SCH (19:57)
[2020-03-10] MEDS: ACETAMINOPHEN 500 MG TAB (TYLENOL) PO SCH (19:57)
--- NOTE | 2020-03-10 20:41 | Diagnostic Imaging Report ---
EXAMINATION: Chest 1 view. HISTORY: Postop right hemicolectomy. COMPARISON: Chest radiograph on 03/09/2020. FINDINGS: Endotracheal tube is visualized with the tip overlying the trachea approximately 8 cm above the delisa. The enteric tube is visualized descending below the diaphragm. Lung volumes are normal. No focal consolidation. No pleural effusion or pneumothorax. The cardiac silhouette is unremarkable. IMPRESSION: 1. No focal consolidation or pleural effusion. 2. Placement of an endotracheal tube with the tip approximately 8 cm above the delisa. Recommend advancing 2 to 3 cm. Stable enteric tube. Dictated by: Dictated on workstation # [id number]
--- NOTE | 2020-03-10 20:57 | NUR ---
THIS RN CALLED ANTHONY CAVAZOS, PATIENT'S EMERGENCY CONTACT, TO GIVE UPDATE ON PATIENT'S STATUS. QUESTIONS ANSWERED AT THIS TIME.
[2020-03-10 21:10] LABS: ABG BASE EXCESS -3.9 MMOL/L (-2.5-2.5); ABG OXYGEN SATURATION 97 % (94-100); ABG PCO2 42 MMHG (35-45); ABG PO2 100 MMHG (79-93); ABG TCO2 22.6 MMOL/L (21.0-31.0)
[2020-03-10 21:15] LABS: ALLENS TEST POSITIVE; INSPIRED O2 40; PATIENT TEMP 36.2; VENTILATOR YES
[2020-03-10 21:16] LABS: ABG PH 7.32 (7.37-7.43)
--- NOTE | 2020-03-10 22:13 | NUR ---
ORDER RECEIVED FROM TELE ICU TO EXTUBATE PATIENT AT THIS TIME. THIS RN AT BEDSIDE WITH RT RIAZ, PATIENT AWAKE AND FOLLOWING COMMANDS. RT EXTUBATED AT THIS TIME, PLACED PATIENT ON 6L NC. PATIENT VITALS STABLE. THIS RN WILL CONTINUE TO MONITOR.
--- NOTE | 2020-03-10 22:28 | NUR ---
THIS RN NOTIFIED DR. CUEVAS OF PATIENT BEING EXTUBATED AT 3, PATIENT DOING WELL ON NC. NEW ORDER RECEIVED TO START PATIENT ON ICE CHIPS ADVANCING TO CLEAR LIQUIDS IN AM AND TO PULL NG TUBE IN AM.
[2020-03-11] VITALS (16 sets, daily range): BP systolic 96–159; BP diastolic 61–86
--- NOTE | 2020-03-11 00:26 | OPERATIVE REPORT ---
DATE OF SERVICE: PREOPERATIVE DIAGNOSIS: Ascending colon mass near obstructing. POSTOPERATIVE DIAGNOSES: Ascending colon mass near obstructing, liver masses and partial small-bowel obstruction. PROCEDURES: 1. Open right hemicolectomy. 2. Enterotomy with manual decompression of small bowel. SURGEON: Yun Pike DO TANK ASSEMBLER: Vinicius Castrejon DO. ANESTHESIA: General endotracheal tube. SPECIMEN: Portion of terminal ileum, right colon and portion of transverse colon. BLOOD LOSS: Approximately 200 mL. FLUIDS: Per anesthesia. POSTOPERATIVE CONDITION: Stable. INDICATION FOR PROCEDURE: The patient is a 74-year-old male, who had a colonoscopy today because he had a lesion seen on CAT scan, wanted to get a diagnosis. He did have some retained fecal material, but able to get to this area in the ascending colon. Unfortunately, looked like it was near obstructing and only 2 or 3 mm opening. Then discussed with him colon resection and he wanted to do that today. FINDINGS: The patient had colon mass. He had adhesions from previous surgery. He had a lot of distention in the small bowel from fecalization of the fluid and found multiple more than 20 masses in the liver. Picture was taken. PROCEDURE NOTE: After informed consent was obtained, the patient was brought to the operating room, placed on the operating table in supine position, sterilely prepped and draped in normal fashion, made midline incision, thought was to do laparoscopic hand assisted. We made incision from just above the umbilicus to below the umbilicus, approximately 7-8 cm incision, carried down through the skin into subcutaneous tissue, deepened down to subcutaneous tissue with Bovie electrocautery down to fascia. Fascia was incised with Bovie electrocautery and once we entered the abdomen, found multiple adhesions and the small bowel was very, very distended. We be able to do laparoscopically, so we opened the incision superiorly and inferiorly with Bovie electrocautery. We then placed Omni retractor and then started taking down the adhesions. Adhesions from previous surgeries, this took about 30 minutes, able to take these down and then actually start coming along the right pericolic gutter along the white line of Toldt, freeing this up with Bovie electrocautery, some small bowel was also stuck down in the pelvis, able to free this up with Bovie electrocautery along the mesentery. Once we were able to bring this up, then elected to because of distention in the small bowel, made a hole in the small intestine and then manually decompressed the fecal fluid in the small bowel, running from the ligament of Treitz all the way to the opening, also had a pool suction in there to suction as much as we can, able to get almost all of it into basin and outside of the abdomen. At this point, then made a defect in the mesentery and then clamped across portion of terminal ileum with a UMESH-75, clamped and fired, thereby transecting and placed a Lily across the opening and then started coming across the mesentery with the LigaSure, clamping, coagulating and transecting in this fashion coming across down right at the retroperitoneal area, coming across the mesentery, could feel some lymph nodes in this mesentery, got about nursing home up and then stopped and then went to the transverse colon, picked a spot about 10 to 12 cm past the hepatic flexure and the transverse colon, cut the omentum off it with LigaSure and then made a defect in the mesentery under the colon, placed another UMESH-75 clamped and fired, then transected and then came across the mesentery of the transverse colon and around the hepatic flexure and down and removing this entire right colon, portion of transverse colon and portion of terminal ileum off, passed off the table. Copiously irrigated with sterile water. Hemostasis obtained. I then elected to do a [id number] enterocolotomy, terminal ileum to the transverse colon, made a defect in the tinea on the transverse colon and then made a defect in the antimesenteric border of the terminal ileum with Bovie electrocautery, placed the UMESH one on either side, clamped together, held for 30 seconds placed a 3-0 Vicryl crotch stitch and then fired thereby transecting creating a gxky-bw-kwoq functional end-to-end anastomosis and then used another UMESH-75 reload to close, actually had to use two reloads of the UMESH-75 to close this enterocolotomy, closed this and passed off the anastomotic portion to go with the rest of the colon. At this point, then closed the mesenteric defect with 3-0 Vicryl running suture running from the colon down along the mesentery and onto the retroperitoneal space, tying to itself to close this defect in the mesentery. At this point, then copiously irrigated with 6 liters of warm normal saline, suctioned this out. There was a clear saline towards the end. I really did not see any gross contamination while doing this, then palpated the liver and unfortunately found multiple masses, probably over 20 in the liver, small 1 cm and larger. We took a picture of these with the camera and at this point, then elected to close the incision, closed with #1 double stranded PDS suture, one from the superior portion, one from the inferior portion running together and meeting in the middle and tying, then irrigated the midline incision, then closed the skin with wander. Area was cleaned and dried, dressing placed and the patient tolerated the procedure. Sponge and needle count correct at the end of the case. Dr. Castrejon assisted in this case helping to make incisions, close incisions, identify anatomy and hold anatomy out of the way. Patient was then transferred to recovery room in stable condition. Job ID: [id number] DocumentID: [id number] Dictated Date: 03/10/2020 18:40:49 Coremaker Machine Date: 03/11/2020 00:26:06 Dictated By: YUN PIKE DO
[2020-03-11] MEDS: LACTATED RINGERS 1,000 ML IV SCH ×7 (00:27→17:32)
[2020-03-11] MEDS: ceFAZolin 2 GM IV Premixed 50 ML IV SCH ×2 (00:48→11:08)
[2020-03-11] MEDS: KETOROLAC 15 MG/ML VIAL IV SCH ×5 (00:48→23:35)
[2020-03-11] MEDS: metroNIDAZOLE 500MG/100ML IVPB 100 ML IV SCH ×2 (00:49→11:16)
[2020-03-11] MEDS: ACETAMINOPHEN 500 MG TAB (TYLENOL) PO SCH ×3 (02:32→16:33)
--- NOTE | 2020-03-11 04:05 | Pulmonary Consultation ---
History of Present Illness History of Present Illness Date Seen by Provider: Mar 11, 2020 Time Seen by Provider: 04:00 Date of Admission History of Present Illness [address] Saini after right hemicolectomy secondary to mass. After surgery pt was admitted to ICU and extubated at 2213. Pt is currently on NC at 2 liters/min. No complications noted. Allergies and Home Medications Allergies Coded Allergies: No Known Drug Allergies (Unverified , 03/09/20) Home Medications No Active Prescriptions or Reported Meds Past Bsevvbm-Aqtyhy-Hrrkoy Hx Patient Social History Alcohol Use: Denies Use Drug of Choice: Denies Smoking Status: Current Everyday Smoker (1.5 PPD) Type Used: Cigarettes Recent Infectious Disease Expo: No Recent Hopitalizations: No Have you traveled recently?: No Alcohol Use?: Unable to obtain Seasonal Allergies Seasonal Allergies: No Past Medical History Surgeries: Yes (EYES) Respiratory: Yes Asthma, Chronic Bronchitis, COPD Cardiac: No Neurological: No Reproductive Disorders: No Sexually Transmitted Disease: No Genitourinary: No Gastrointestinal: Yes Chronic Constipation Musculoskeletal: No Endocrine: No HEENT: Yes Cataract Cancer: No Psychosocial: No Integumentary: No Family Medical History Diabetes (denies either his parent had DM) Sepsis Event Evaluation Height, Weight, BMI Height: '" Weight: lbs. oz. kg; 21.38 BMI Method: Exam Exam Vital Signs Date Time Temp Pulse Resp B/P (MAP) Pulse Ox O2 Delivery O2 Flow Rate FiO2 03/11/20 02:02 97 Nasal Cannula 2.00 03/11/20 00:00 36.2 03/10/20 23:51 Nasal Cannula 3.00 03/10/20 23:00 68 18 134/80 (98) 98 Nasal Cannula 4.00 03/10/20 22:13 Nasal Cannula 5.00 03/10/20 22:10 74 12 96 03/10/20 22:00 76 17 151/86 (107) 97 Mechanical Ventilator 40.00 03/10/20 21:00 72 20 160/88 (112) 98 Mechanical Ventilator 40.00 03/10/20 20:00 71 15 98 03/10/20 20:00 72 24 153/83 (106) 96 Mechanical Ventilator 40.00 03/10/20 20:00 Mechanical Ventilator 40 03/10/20 19:35 36.2 03/10/20 19:30 36.4 22 166/86 (112) 97 Mechanical Ventilator 03/10/20 19:30 Mechanical Ventilator 03/10/20 19:20 25 158/83 (108) 97 Mechanical Ventilator 03/10/20 19:20 Mechanical Ventilator 03/10/20 19:10 30 171/87 (115) 99 Mechanical Ventilator 03/10/20 19:05 Mechanical Ventilator 03/10/20 19:00 Mechanical Ventilator 40.00 03/10/20 19:00 77 03/10/20 19:00 33 176/94 (121) 100 Mechanical Ventilator 03/10/20 19:00 77 25 158/83 (108) 97 Mechanical Ventilator 40.00 03/10/20 18:50 23 177/95 (122) 100 Mechanical Ventilator 03/10/20 18:50 Mechanical Ventilator 03/10/20 18:50 75 27 100 40 03/10/20 18:40 30 162/87 (112) 100 Mechanical Ventilator 03/10/20 18:38 Mechanical Ventilator 03/10/20 18:38 36.8 16 128/79 (95) 100 Mechanical Ventilator 03/10/20 16:00 36.2 70 18 132/69 (90) 93 Room Air 03/10/20 13:14 35.0 83 18 133/82 (99) 98 Room Air 03/10/20 12:45 76 16 99 Room Air 03/10/20 12:40 72 16 99 OxyMask 8 03/10/20 08:31 35.7 66 16 142/80 (100) 92 Room Air 03/10/20 08:00 Room Air 03/10/20 04:12 36.4 69 18 147/83 (104) 94 Room Air I & O 03/11/20 07:00 Intake Total 1250 ml Output Total 2970 ml Balance -1720 ml Height & Weight Height: '" Weight: lbs. oz. kg; 21.38 BMI Method: General Appearance: No Apparent Distress HEENT: PERRL/EOMI, Other (NGT in place) Neck: Full Range of Motion, Non Tender, Supple Respiratory: No Accessory Muscle Use, No Respiratory Distress, Wheezing (throughout) Cardiovascular: Regular Rate, Rhythm, No Murmur Capillary Refill: Less Than 3 Seconds Gastrointestinal: non tender, soft, distended; No guarding Extremity: Non Tender, No Calf Tenderness, No Pedal Edema Neurologic/Psychiatric: Alert, Oriented x3, Normal Mood/Affect Skin: Normal Color, Warm/Dry Results Lab Laboratory Tests 03/09/20 17:45 03/10/20 05:23 Assessment/Plan Assessment/Plan Ascending colon mass s/p open Right hemicolectomy -Admitted to Dr. Saini with surgery consult -Surgery is following -Pain control -Cytology pending -NG is currently in place COPD and asthma hx -Titrate oxygen -Add advair and Duoneb TID and PRN -IS KENROY WHITEHEAD DO Mar 11, 2020 04:05
[2020-03-11] MEDS ORDERED: LACTATED RINGERS 500 ML IV ONE (06:00)
[2020-03-11 06:34] LABS: BASOPHILS % (AUTO) 0 % (0-10); EOSINOPHILS % (AUTO) 0 % (0-10); HEMATOCRIT 45 % (40-54); HEMOGLOBIN 14.4 g/dL (13.3-17.7); LYMPHOCYTES # (AUTO) 0.8 10^3/uL (1.0-4.0); LYMPHOCYTES % (AUTO) 6 % (12-44); MEAN CORPUSCULAR HEMOGLOBIN 30 pg (25-34); MEAN CORPUSCULAR HGB CONC 32 g/dL (32-36); MEAN CORPUSCULAR VOLUME 92 fL (80-99); MEAN PLATELET VOLUME 11.5 fL (9.0-12.2); MONOCYTES # (AUTO) 0.7 10^3/uL (0.0-1.0); MONOCYTES % (AUTO) 6 % (0-12); NEUTROPHILS # (AUTO) 10.7 10^3/uL (1.8-7.8); NEUTROPHILS % (AUTO) 88 % (42-75); PLATELET COUNT 234 10^3/uL (130-400); WHITE BLOOD COUNT 12.2 10^3/uL (4.3-11.0)
[2020-03-11 06:36] LABS: POTASSIUM 4.6 MMOL/L (3.6-5.0)
[2020-03-11 06:37] LABS: CALCIUM 7.9 MG/DL (8.5-10.1)
[2020-03-11 06:41] LABS: PHOSPHORUS 4.3 MG/DL (2.3-4.7)
[2020-03-11 06:42] LABS: CREATININE SERUM 1.51 MG/DL (0.60-1.30)
[2020-03-11 06:44] LABS: MAGNESIUM 1.7 MG/DL (1.6-2.4)
[2020-03-11] MEDS: ADVAIR HFA 115/21 MCG INHALER 8 GM IH SCH ×2 (06:50→18:47)
[2020-03-11] MEDS: MAGNESIUM 1 GM/100 ML IVPB 100 ML IV SCH ×2 (07:55→08:30)
--- NOTE | 2020-03-11 10:09 | Progress Note - Surgery ---
SHAWN MERIDA MED STUDENT 03/11/20 1009: Subjective Date Seen by a Provider: Mar 11, 2020 Time Seen by a Provider: 10:03 Subjective/Events-last exam Pt awake upon entering. Pt c/o weakness and intermittent abdominal pain. No BM. Tenderness at incision site. Incision bandage removed w/o purulence, old blood from procedure. Pt encouraged to use IS. Review of Systems General: No Chills; Fatigue HEENT: No Head Aches, No Dysphasia Pulmonary: No Dyspnea, No Cough Cardiovascular: No: Chest Pain, Palpitations Gastrointestinal: No: Nausea, Vomiting Genitourinary: No Frequency, No Retention Musculoskeletal: No: other, neck pain, shoulder pain, arm pain, back pain, hand pain, leg pain, foot pain Neurological: Weakness; No: Numbness Objective Exam Vital Signs Date Time Temp Pulse Resp B/P (MAP) Pulse Ox O2 Delivery O2 Flow Rate FiO2 03/11/20 09:00 80 25 118/68 (85) 95 Room Air 03/11/20 08:00 93 24 105/71 (82) 95 Room Air 03/11/20 07:33 36.4 03/11/20 07:00 74 03/11/20 07:00 80 36 147/86 (106) 96 Room Air 03/11/20 06:00 76 21 146/81 (102) 94 Room Air 03/11/20 05:00 81 26 122/76 (91) 96 Room Air 03/11/20 04:45 95 Room Air 03/11/20 04:00 76 20 129/76 (93) 96 Nasal Cannula 3.00 03/11/20 03:00 73 20 126/75 (92) 98 Nasal Cannula 3.00 03/11/20 02:02 97 Nasal Cannula 2.00 03/11/20 02:00 67 18 151/81 (104) 97 Nasal Cannula 3.00 03/11/20 01:00 79 03/11/20 01:00 76 16 152/83 (106) 99 Nasal Cannula 3.00 03/11/20 00:00 36.2 03/11/20 00:00 68 21 159/83 (108) 98 Nasal Cannula 3.00 03/10/20 23:51 Nasal Cannula 3.00 03/10/20 23:00 68 18 134/80 (98) 98 Nasal Cannula 4.00 03/10/20 22:13 Nasal Cannula 5.00 03/10/20 22:10 74 12 96 03/10/20 22:00 76 17 151/86 (107) 97 Mechanical Ventilator 40.00 03/10/20 21:00 72 20 160/88 (112) 98 Mechanical Ventilator 40.00 03/10/20 20:00 71 15 98 03/10/20 20:00 72 24 153/83 (106) 96 Mechanical Ventilator 40.00 03/10/20 20:00 Mechanical Ventilator 40 03/10/20 19:35 36.2 03/10/20 19:30 36.4 22 166/86 (112) 97 Mechanical Ventilator 03/10/20 19:30 Mechanical Ventilator 03/10/20 19:20 25 158/83 (108) 97 Mechanical Ventilator 03/10/20 19:20 Mechanical Ventilator 03/10/20 19:10 30 171/87 (115) 99 Mechanical Ventilator 03/10/20 19:05 Mechanical Ventilator 03/10/20 19:00 Mechanical Ventilator 40.00 03/10/20 19:00 77 03/10/20 19:00 33 176/94 (121) 100 Mechanical Ventilator 03/10/20 19:00 77 25 158/83 (108) 97 Mechanical Ventilator 40.00 03/10/20 18:50 23 177/95 (122) 100 Mechanical Ventilator 03/10/20 18:50 Mechanical Ventilator 03/10/20 18:50 75 27 100 40 03/10/20 18:40 30 162/87 (112) 100 Mechanical Ventilator 03/10/20 18:38 Mechanical Ventilator 03/10/20 18:38 36.8 16 128/79 (95) 100 Mechanical Ventilator 03/10/20 16:00 36.2 70 18 132/69 (90) 93 Room Air 03/10/20 13:14 35.0 83 18 133/82 (99) 98 Room Air 03/10/20 12:45 76 16 99 Room Air 03/10/20 12:40 72 16 99 OxyMask 8 I & O 03/11/20 07:00 Intake Total 1275 ml Output Total 3120 ml Balance -1845 ml Capillary Refill : Less Than 3 SecondsLess Than 3 Seconds General Appearance: No Apparent Distress HEENT: PERRL/EOMI Neck: Full Range of Motion, Non Tender, Supple Respiratory: No Accessory Muscle Use, No Respiratory Distress, Wheezing (throughout) Cardiovascular: Regular Rate, Rhythm, No Murmur Gastrointestinal: soft, distended, other (tender at incision site) Extremity: Non Tender, No Calf Tenderness, No Pedal Edema Neurologic/Psychiatric: Alert, Oriented x3, No Motor/Sensory Deficits, Normal Mood/Affect Skin: Normal Color, Warm/Dry Results Lab Laboratory Tests 03/10/20 21:00: Blood Gas Puncture Site RADIAL, Blood Gas Patient Temperature 36.2, Arterial Blood pH 7.32*L, Arterial Blood Partial Pressure CO2 42, Arterial Blood Partial Pressure O2 100H, Arterial Blood HCO3 21L, Arterial Blood Total CO2 22.6, Arterial Blood Oxygen Saturation 97, Arterial Blood Base Excess -3.9L, Adan Test POSITIVE, Blood Gas Ventilator Setting YES, Blood Gas Inspired Oxygen 40 03/11/20 05:30: White Blood Count 12.2H, Red Blood Count 4.88, Hemoglobin 14.4, Hematocrit 45, Mean Corpuscular Volume 92, Mean Corpuscular Hemoglobin 30, Mean Corpuscular Hemoglobin Concent 32, Red Cell Distribution Width 13.7, Platelet Count 234, Mean Platelet Volume 11.5, Immature Granulocyte % (Auto) 0, Neutrophils (%) (Auto) 88H, Lymphocytes (%) (Auto) 6L, Monocytes (%) (Auto) 6, Eosinophils (%) (Auto) 0, Basophils (%) (Auto) 0, Neutrophils # (Auto) 10.7H, Lymphocytes # (Auto) 0.8L, Monocytes # (Auto) 0.7, Eosinophils # (Auto) 0.0, Basophils # (Auto) 0.0, Immature Granulocyte # (Auto) 0.0, Sodium Level 141, Potassium Level 4.6, Chloride Level 107, Carbon Dioxide Level 22, Anion Gap 12, Blood Urea Nitrogen 24H, Creatinine 1.51H, Estimat Glomerular Filtration Rate 45, BUN/Creatinine Ratio 16, Glucose Level 102, Calcium Level 7.9L, Phosphorus Level 4.3, Magnesium Level 1.7 Microbiology 03/09/20 MRSA Screen - Preliminary, Resulted MRSA not isolated 03/09/20 Urine Culture - Preliminary, Resulted Klebsiella/Enterobacter spec Assessment/Plan Assessment/Plan Assessment/Plan Partial Bowel Obstruction Colonic Mass- ascending colon Hepatic mets Bowel resection CEA (12.4), Continue IV fluids, pain control and anti-emetics as needed Intermittent suction, Encourage ambulation and IS, DVT/GI ppx Monitor urine I & O, marginal currently - bolus, DC garsia if increased output VINICIUS CUEVAS DO 03/11/202: Subjective Subjective/Events-last exam Patient having mild incisional pain but controlled. Patient tolerating clear li quids at this time. Has Garsia for accurate output. Slightly decreased today. Not using incentive spirometer. Extubated last night. Denies any nausea vomiting fever sweats chills shortness of breath or chest pain. Objective Exam General Appearance: No Apparent Distress HEENT: PERRL/EOMI Neck: Non Tender Respiratory: Chest Non Tender, No Accessory Muscle Use, No Respiratory Distress Cardiovascular: Regular Rate, Rhythm, No Murmur Gastrointestinal: soft, distended (Minimal), other (tender at incision site, no signs of infection) Extremity: Non Tender Neurologic/Psychiatric: Alert, Oriented x3, No Motor/Sensory Deficits, Normal Mood/Affect Skin: Normal Color, Warm/Dry Lymphatic: No Adenopathy Assessment/Plan Assessment/Plan Assessment/Plan Partial Bowel Obstruction Colonic Mass- ascending colon Hepatic mets Status post extended right hemicolectomy Garsia for accurate urine output IV fluids Continue clear liquids Encouraged incentive spirometer Pain control Encourage ambulation. GI DVT prophylaxis Supervisory-Addendum Brief Verification & Attestation Participated in pt care: history, MDM, physical Personally performed: exam, history, MDM, supervision of care Care discussed with: Medical Student Procedures: n/a Results interpretation: Verified all documentation Verification and Attestation of Medical Student E/M Service A medical student performed and documented this service in my presence. I reviewed and verified all information documented by the medical student and made modifications to such information, when appropriate. I personally performed the physical exam and medical decision making. Vinicius Cuevas, Mar 11, 2020,17:12 SHAWN MERIDA MED STUDENT Mar 11, 2020 10:09 VINICIUS CUEVAS DO Mar 11, 2020 17:12
[2020-03-11] MEDS: PANTOPRAZOLE 40 MG (PROTONIX) VIAL IVP SCH (11:06)
[2020-03-11] MEDS ORDERED: NS IV 500 ML 500 ML IV SCH (11:30)
[2020-03-11] MEDS: fentaNYL INJECTION 100 MCG/2 ML AMP IVP PRN ×2 (11:45→14:49)
--- NOTE | 2020-03-11 12:38 | Progress Note - Hospitalist ---
SENAIT ROMERO,MED STUDENT 03/11/20 1238: Subjective HPI/CC On Admission Date Seen by Provider: Mar 11, 2020 Patient is a 74yo male with a PMH of asthma and chronic constipation c/o abdominal bloating for the last x3 weeks. He states he normally only has a bowel movement every 10-14 days, but that before two days ago it had been three weeks since his last. He first noticed feeling bloated, and then notes he could not pass gas. He also had diarrhea for x1 week and nausea and some vomiting when the symptoms began, but these have since resolved. He notes he had been eating normally, but reports a decreased appetite and feeling full after small amounts of food for the last few days. He started taking Dulcolax 2 days ago, which helped him have a medium sized soft bm. He denies seeing any blood in the stool, and says the stool was brown in color. He denies pain with the bm. Denies fevers, chills, SOB, CP, palpitations. He denies experiencing similar symptoms in the past. Subjective/Events-last exam Underwent open right hemicolectomy yesterday due to near bowel obstruction. Reports incisional pain with movement today, otherwise well controlled. Denies fevers, chills, nausea, vomiting. Objective Exam Vital Signs Vital Signs Date Time Temp Pulse Resp B/P (MAP) Pulse Ox O2 Delivery O2 Flow Rate FiO2 03/11/20 12:00 73 20 101/63 (76) 92 Room Air 03/11/20 07:33 36.4 03/11/20 04:00 3.00 03/10/20 20:00 40 Capillary Refill : Less Than 3 SecondsLess Than 3 Seconds General Appearance: No Apparent Distress, WD/WN HEENT: PERRL/EOMI, Pharynx Normal Neck: Non Tender, Supple Respiratory: Lungs Clear, No Accessory Muscle Use, No Respiratory Distress Cardiovascular: Regular Rate, Rhythm, No Murmur, Normal Peripheral Pulses Gastrointestinal: Normal Bowel Sounds, Soft, Tenderness Extremity: Non Tender, No Calf Tenderness, No Pedal Edema Neurologic/Psychiatric: Alert, Oriented x3, Normal Mood/Affect Skin: Normal Color, Warm/Dry Results/Procedures Lab Laboratory Tests 03/11/20 05:30 Patient resulted labs reviewed. Assessment/Plan Assessment and Plan Assess & Plan/Chief Complaint Partial bowel obstruction w/ possible colonic mass Surgery consulted Lesion in ascending colon on CT per radiology S/p open right hemicolectomy To ICU intubated, extubated 2212 last night Acute kidney injury Improving Continue IV fluid replacement Hypertension Continue to monitor Lovenox for DVT prophylaxis Plan for colonoscopy today CEA pending Continue IV fluids, pain control and anti-emetics as needed NGT to intermittent suction Encourage ambulation, IS DVT/GI ppx Medical management per primary CRISPIN RYDER MD 03/11/20 1416: Subjective HPI/CC On Admission Time Seen by Provider: 11:45 Assessment/Plan Assessment and Plan Assess & Plan/Chief Complaint Patient doing well postop day #1. He went to surgery last night for resection with Dr Pike and Dr Castrejon. Per report from Dr Castrejon they visualized metastatic lesions in his liver as well. Discussed this with patient and that oncology will be need to be consulted as well for recommendations but that path is pending and will be the most important aspect of treatment. No oncology co verage this weekend but will have consult for Friday morning. Supervisory-Addendum Brief Verification & Attestation Participated in pt care: history, MDM, physical Personally performed: exam, history, MDM, supervision of care Care discussed with: Medical Student Procedures: n/a Results interpretation: Verified all documentation Verification and Attestation of Medical Student E/M Service A medical student performed and documented this service in my presence. I reviewed and verified all information documented by the medical student and made modifications to such information, when appropriate. I personally performed the physical exam and medical decision making. Crispin Ryder, Mar 11, 2020,14:11 SENAIT ROMERO,MED STUDENT Mar 11, 2020 12:38 CRISPIN RYDER MD Mar 11, 2020 14:16
[2020-03-11] MEDS: ENOXAPARIN 40 MG/0.4 ML (LOVENOX) SYR SC SCH (17:36)
--- NOTE | 2020-03-11 22:18 | Anesthesia-General Post-Op ---
General Patient Condition Mental Status/LOC: Same as Preop Cardiovascular: Satisfactory Nausea/Vomiting: Absent Respiratory: Satisfactory Pain: Controlled Complications: Absent Post Op Complications Complications None Follow Up Care/Instructions Patient Instructions None needed. Anesthesia/Patient Condition Patient Condition Patient is doing well, no complaints, stable vital signs, no apparent adverse anesthesia problems. No complications reported per nursing. MAGAN HANDLEY CRNA Mar 11, 2020 22:18
[2020-03-12 00:39] VITALS: BP 99/62
[2020-03-12] MEDS: ACETAMINOPHEN 500 MG TAB (TYLENOL) PO SCH ×3 (01:51→17:09)
[2020-03-12] MEDS: LACTATED RINGERS 1,000 ML IV SCH ×3 (02:27→10:47)
[2020-03-12 03:55] VITALS: BP 105/67
[2020-03-12] MEDS: KETOROLAC 15 MG/ML VIAL IV SCH ×3 (05:39→17:34)
[2020-03-12 05:44] LABS: BASOPHILS % (AUTO) 0 % (0-10); EOSINOPHILS # (AUTO) 0.1 10^3/uL (0.0-0.3); EOSINOPHILS % (AUTO) 1 % (0-10); HEMATOCRIT 37 % (40-54); HEMOGLOBIN 11.9 g/dL (13.3-17.7); LYMPHOCYTES # (AUTO) 1.5 10^3/uL (1.0-4.0); LYMPHOCYTES % (AUTO) 14 % (12-44); MEAN CORPUSCULAR HEMOGLOBIN 30 pg (25-34); MEAN CORPUSCULAR HGB CONC 32 g/dL (32-36); MEAN CORPUSCULAR VOLUME 92 fL (80-99); MEAN PLATELET VOLUME 11.6 fL (9.0-12.2); MONOCYTES # (AUTO) 0.5 10^3/uL (0.0-1.0); MONOCYTES % (AUTO) 5 % (0-12); NEUTROPHILS # (AUTO) 8.3 10^3/uL (1.8-7.8); NEUTROPHILS % (AUTO) 79 % (42-75); PLATELET COUNT 181 10^3/uL (130-400); WHITE BLOOD COUNT 10.4 10^3/uL (4.3-11.0)
[2020-03-12 06:16] LABS: POTASSIUM 4.3 MMOL/L (3.6-5.0)
[2020-03-12 06:17] LABS: CALCIUM 7.2 MG/DL (8.5-10.1)
[2020-03-12 06:21] LABS: CREATININE SERUM 1.5 MG/DL (0.60-1.30); PHOSPHORUS 2.2 MG/DL (2.3-4.7)
[2020-03-12 06:23] LABS: MAGNESIUM 2.1 MG/DL (1.6-2.4)
--- NOTE | 2020-03-12 06:55 | Pulmonary Progress Note ---
Subjective Time Seen by a Provider: 06:53 Subjective/Events-last exam Now on RA. No complications noted. Sepsis Event Evaluation Height, Weight, BMI Height: '" Weight: lbs. oz. kg; 21.38 BMI Method: Exam Exam Vital Signs Date Time Temp Pulse Resp B/P (MAP) Pulse Ox O2 Delivery O2 Flow Rate FiO2 03/12/20 03:55 36.5 75 20 105/67 (80) 95 Room Air 03/12/20 00:39 37.2 82 18 99/62 (74) 92 Room Air 03/11/20 20:00 Room Air 03/11/20 19:27 37.1 78 20 112/63 (79) 93 Room Air 03/11/20 18:47 91 Room Air 03/11/20 15:29 37.0 79 18 96/61 (73) 96 Room Air 03/11/20 13:00 76 22 101/61 (74) 96 Room Air 03/11/20 12:37 36.6 03/11/20 12:00 73 20 101/63 (76) 92 Room Air 03/11/20 11:00 75 25 113/70 (84) 94 Room Air 03/11/20 10:00 76 27 119/71 (87) 95 Room Air 03/11/20 09:00 80 25 118/68 (85) 95 Room Air 03/11/20 08:00 93 Room Air 03/11/20 08:00 93 24 105/71 (82) 95 Room Air 03/11/20 07:33 36.4 03/11/20 07:00 74 03/11/20 07:00 80 36 147/86 (106) 96 Room Air I & O 03/12/20 07:00 Intake Total 1930 ml Output Total 550 ml Balance 1380 ml Height & Weight Height: '" Weight: lbs. oz. kg; 21.38 BMI Method: General Appearance: No Apparent Distress HEENT: PERRL/EOMI Neck: Non Tender Respiratory: Chest Non Tender, No Accessory Muscle Use, No Respiratory Distress Cardiovascular: Regular Rate, Rhythm, No Murmur Capillary Refill: Less Than 3 Seconds Gastrointestinal: soft, distended (Minimal), other (tender at incision site, no signs of infection) Extremity: Non Tender Neurologic/Psychiatric: Alert, Oriented x3, No Motor/Sensory Deficits, Normal Mood/Affect Skin: Normal Color, Warm/Dry Lymphatic: No Adenopathy Results Lab Laboratory Tests 03/11/20 05:30 03/12/20 05:28 Assessment/Plan Assessment/Plan COPD and asthma hx - stable -Titrate oxygen -Add advair and Duoneb TID and PRN -IS Ascending colon mass s/p open Right hemicolectomy -Surgery is following -Pain control -Cytology pending -NG is currently in place KENROY WHITEHEAD DO Mar 12, 2020 06:55
[2020-03-12 08:00] VITALS: BP 129/64
[2020-03-12] MEDS: PANTOPRAZOLE 40 MG (PROTONIX) VIAL IVP SCH (08:29)
[2020-03-12] MEDS: ADVAIR HFA 115/21 MCG INHALER 8 GM IH SCH ×2 (09:36→18:11)
[2020-03-12] MEDS: RT-ALBUTEROL/IPRATROPIUM 3 ML (DUONEB) VIAL INH SCH ×3 (09:36→18:10)
--- NOTE | 2020-03-12 09:54 | Progress Note - Hospitalist ---
SENAIT ROMERO,MED STUDENT 03/12/20 0954: Subjective HPI/CC On Admission Date Seen by Provider: Mar 12, 2020 Patient is a 74yo male with a PMH of asthma and chronic constipation c/o abdominal bloating for the last x3 weeks. He states he normally only has a bowel movement every 10-14 days, but that before two days ago it had been three weeks since his last. He first noticed feeling bloated, and then notes he could not pass gas. He also had diarrhea for x1 week and nausea and some vomiting when the symptoms began, but these have since resolved. He notes he had been eating normally, but reports a decreased appetite and feeling full after small amounts of food for the last few days. He started taking Dulcolax 2 days ago, which helped him have a medium sized soft bm. He denies seeing any blood in the stool, and says the stool was brown in color. He denies pain with the bm. Denies fevers, chills, SOB, CP, palpitations. He denies experiencing similar symptoms in the past. Subjective/Events-last exam No change in incisional pain. Denies nausea or vomiting, tolerating clear liquids well. Reports passing gas and having liquid bm's. Denies any new concerns this morning. Objective Exam Vital Signs Vital Signs Date Time Temp Pulse Resp B/P (MAP) Pulse Ox O2 Delivery O2 Flow Rate FiO2 03/12/20 09:37 92 Room Air 03/12/20 08:00 36.6 75 20 129/64 (85) 03/12/20 08:00 3.00 03/10/20 20:00 40 Capillary Refill : Less Than 3 SecondsLess Than 3 Seconds General Appearance: No Apparent Distress, WD/WN HEENT: PERRL/EOMI, Pharynx Normal, Moist Mucous Membranes Neck: Full Range of Motion, Non Tender, Supple Respiratory: Lungs Clear, No Accessory Muscle Use, No Respiratory Distress Cardiovascular: Regular Rate, Rhythm, No Murmur, Normal Peripheral Pulses Gastrointestinal: Normal Bowel Sounds, Soft, Tenderness Extremity: Normal Capillary Refill, Non Tender, No Calf Tenderness Neurologic/Psychiatric: Alert, Oriented x3, Normal Mood/Affect Skin: Normal Color, Warm/Dry Results/Procedures Lab Laboratory Tests 03/12/20 05:28 Patient resulted labs reviewed. Assessment/Plan Assessment and Plan Assess & Plan/Chief Complaint Ascending colon mass s/p right hemicolectomy Surgery following On clear liquid diet Oncology consult on Friday Pathology pending Moved to 4th floor Acute kidney injury Improving Continue IV fluid replacement Hypertension Continue to monitor Lovenox for DVT prophylaxis Plan for colonoscopy today CEA pending Continue IV fluids, pain control and anti-emetics as needed NGT to intermittent suction Encourage ambulation, IS DVT/GI ppx Medical management per primary CRISPIN RYDER MD 03/12/20 1412: Subjective HPI/CC On Admission Time Seen by Provider: 14:06 Assessment/Plan Assessment and Plan Assess & Plan/Chief Complaint Pt reports doing ok this morning but pain worse than it was yesterday. Passing gas and has had a soft BM just more positional pain. States pain medicine helps when he gets it though. Otherwise would just like to advance his diet. Discussed with Dr Castrejon and will advance to soft diet. Consult for oncology placed for tomorrow morning. Supervisory-Addendum Brief Verification & Attestation Participated in pt care: history, MDM, physical Personally performed: exam, history, MDM, supervision of care Care discussed with: Medical Student Procedures: n/a Results interpretation: Verified all documentation Verification and Attestation of Medical Student E/M Service A medical student performed and documented this service in my presence. I reviewed and verified all information documented by the medical student and made modifications to such information, when appropriate. I personally performed the physical exam and medical decision making. Crispin Ryder, Mar 12, 2020,14:06 SENAIT ROEMRO,MED STUDENT Mar 12, 2020 09:54 CRISPIN RYDER MD Mar 12, 2020 14:12
[2020-03-12 12:00] VITALS: BP 119/64
[2020-03-12] MEDS ORDERED: NS IV 1000 ML 1,000 ML ONE (12:09)
[2020-03-12] MEDS ORDERED: NS IV 1000 ML 1,000 ML IV ONE (12:15)
[2020-03-12] MEDS: cefTRIAXone FOR IV USE 1,000 MG in WATER (STERILE) FOR INJECTION 10 ML IV SCH (12:17)
--- NOTE | 2020-03-12 13:44 | Progress Note - Surgery ---
SHAWN MERIDA MED STUDENT 03/12/20 1344: Subjective Subjective/Events-last exam Pt awake upon entering. Denies abdominal pain. Abdomen slightly swollen. Pt recommended to reduce portion size and continue liquids. Pt passing BM and flatus. Pt to increase ambulation and IS. Objective Exam Vital Signs Date Time Temp Pulse Resp B/P (MAP) Pulse Ox O2 Delivery O2 Flow Rate FiO2 03/12/20 12:00 35.4 73 18 119/64 (82) 91 Room Air 03/12/20 09:37 92 Room Air 03/12/20 08:00 36.6 75 20 129/64 (85) 92 Room Air 03/12/20 08:00 92 Room Air 3.00 03/12/20 03:55 36.5 75 20 105/67 (80) 95 Room Air 03/12/20 00:39 37.2 82 18 99/62 (74) 92 Room Air 03/11/20 20:00 Room Air 03/11/20 19:27 37.1 78 20 112/63 (79) 93 Room Air 03/11/20 18:47 91 Room Air 03/11/20 15:29 37.0 79 18 96/61 (73) 96 Room Air I & O 03/12/20 07:00 Intake Total 1930 ml Output Total 550 ml Balance 1380 ml Capillary Refill : Less Than 3 SecondsLess Than 3 Seconds General Appearance: No Apparent Distress, WD/WN HEENT: PERRL/EOMI, Pharynx Normal, Moist Mucous Membranes Neck: Full Range of Motion, Non Tender, Supple Respiratory: Lungs Clear, No Accessory Muscle Use, No Respiratory Distress Cardiovascular: Regular Rate, Rhythm, No Murmur, Normal Peripheral Pulses Gastrointestinal: soft, distended (Minimal), other (tender at incision site, no signs of infection) Extremity: Normal Capillary Refill, Non Tender, No Calf Tenderness Neurologic/Psychiatric: Alert, Oriented x3, Normal Mood/Affect Skin: Normal Color, Warm/Dry Lymphatic: No Adenopathy Results Lab Laboratory Tests 03/12/20 05:28: White Blood Count 10.4, Red Blood Count 4.00L, Hemoglobin 11.9L, Hematocrit 37L, Mean Corpuscular Volume 92, Mean Corpuscular Hemoglobin 30, Mean Corpuscular Hemoglobin Concent 32, Red Cell Distribution Width 14.0, Platelet Count 181, Mean Platelet Volume 11.6, Immature Granulocyte % (Auto) 1, Neutrophils (%) (Auto) 79H, Lymphocytes (%) (Auto) 14, Monocytes (%) (Auto) 5, Eosinophils (%) (Auto) 1, Basophils (%) (Auto) 0, Neutrophils # (Auto) 8.3H, Lymphocytes # (Auto) 1.5, Monocytes # (Auto) 0.5, Eosinophils # (Auto) 0.1, Basophils # (Auto) 0.0, Immature Granulocyte # (Auto) 0.1, Sodium Level 135, Potassium Level 4.3, Chloride Level 106, Carbon Dioxide Level 20L, Anion Gap 9, Blood Urea Nitrogen 29H, Creatinine 1.50H, Estimat Glomerular Filtration Rate 46, BUN/Creatinine Ratio 19, Glucose Level 95, Calcium Level 7.2L, Phosphorus Level 2.2L, Magnesium Level 2.1 Microbiology 03/10/20 MRSA Screen - Final, Complete MRSA not isolated 03/09/20 Urine Culture - Final, Complete Citrobacter koseri Assessment/Plan Assessment/Plan Assessment/Plan Partial Bowel Obstruction Colonic Mass- ascending colon Hepatic mets Status post extended right hemicolectomy Garsia for accurate urine output - decreased, IV bolus IV fluids Continue clear liquids, encouraged smaller food portion sizes Encouraged incentive spirometer Pain control Encourage ambulation GI DVT prophylaxis PHUONG CUEVAS DO 03/12/20 1348: Subjective Date Seen by a Provider: Mar 12, 2020 Time Seen by a Provider: 13:45 Subjective/Events-last exam Pain controlled. Tolerating clears. + bm and flatus. Ambulating some. Garsia for accurate urine output slightly low. Using IS some. Denies n/v fever sweats chills shortness of breath or chest pain. Objective Exam General Appearance: No Apparent Distress, WD/WN HEENT: Normal ENT Inspection, Moist Mucous Membranes Neck: Full Range of Motion, Non Tender, Supple Respiratory: Chest Non Tender, No Accessory Muscle Use, No Respiratory Distress Cardiovascular: Regular Rate, Rhythm, No JVD Gastrointestinal: soft, distended (Minimal), other (tender at incision site, no signs of infection) Extremity: Normal Capillary Refill, Non Tender, No Calf Tenderness Neurologic/Psychiatric: Alert, Oriented x3, Normal Mood/Affect Skin: Normal Color, Warm/Dry Lymphatic: No Adenopathy Assessment/Plan Assessment/Plan Assessment/Plan Partial Bowel Obstruction Colonic Mass- ascending colon Hepatic mets Status post extended right hemicolectomy Garsia for accurate urine output - decreased, IV bolus 1 L NS continue to follow, once normal will remove garsia IV fluids Having bowel function increase to soft diet Encouraged incentive spirometer Pain control Encourage ambulation GI DVT prophylaxis Supervisory-Addendum Brief Verification & Attestation Participated in pt care: history, MDM, physical Personally performed: exam, history, MDM, supervision of care Care discussed with: Medical Student Procedures: n/a Results interpretation: Verified all documentation Verification and Attestation of Medical Student E/M Service A medical student performed and documented this service in my presence. I reviewed and verified all information documented by the medical student and made modifications to such information, when appropriate. I personally performed the physical exam and medical decision making. Phuong Cuevas, Mar 12, 2020,13:48 SHAWN MERIDA MED STUDENT Mar 12, 2020 13:44 PHUONG CUEVAS DO Mar 12, 2020 13:48
--- NOTE | 2020-03-12 14:13 | NUR ---
DR. NIETO NOTIFIED OF CONSULT AT THIS TIME.
[2020-03-12] MEDS: NS IV 1000 ML 1,000 ML IV SCH ×2 (14:40→22:00)
[2020-03-12 15:45] VITALS: BP 93/55
[2020-03-12] MEDS: ENOXAPARIN 40 MG/0.4 ML (LOVENOX) SYR SC SCH (17:34)
[2020-03-12 20:20] VITALS: BP 111/58
[2020-03-13] MEDS: KETOROLAC 15 MG/ML VIAL IV SCH ×3 (00:08→13:24)
[2020-03-13 00:21] VITALS: BP 115/60
[2020-03-13] MEDS: ACETAMINOPHEN 500 MG TAB (TYLENOL) PO SCH ×2 (01:35→09:02)
[2020-03-13 04:00] VITALS: BP 122/70
--- NOTE | 2020-03-13 06:42 | Progress Note - Surgery ---
SHAWN MERIDA MED STUDENT 03/13/20 0642: Subjective Date Seen by a Provider: Mar 13, 2020 Time Seen by a Provider: 06:35 Subjective/Events-last exam Pt asleep upon entery but easily woken. Pt c/o soreness with movement but no pain. Pt notes BM and flatus. Pt tolerating diet and ambulation. Encouraged using IS. No acute events over night. Review of Systems General: No Chills, No Night Sweats HEENT: No Head Aches, No Dysphasia Pulmonary: No Dyspnea; Cough Cardiovascular: No: Chest Pain, Palpitations Gastrointestinal: No: Nausea, Vomiting, Abdominal Pain, Constipation Genitourinary: No Dysuria, No Retention Musculoskeletal: No: back pain, leg pain Neurological: No: Weakness, Numbness Objective Exam Vital Signs Date Time Temp Pulse Resp B/P (MAP) Pulse Ox O2 Delivery O2 Flow Rate FiO2 03/13/20 04:00 36.0 72 19 122/70 (87) 92 Room Air 03/13/20 00:21 36.2 80 20 115/60 (78) 93 Room Air 03/12/20 20:20 36.5 78 20 111/58 (75) 91 Room Air 03/12/20 19:43 Room Air 03/12/20 18:11 91 Room Air 03/12/20 18:10 91 Room Air 03/12/20 15:45 36.4 83 20 93/55 (68) 92 Room Air 03/12/20 14:18 92 Room Air 03/12/20 12:00 35.4 73 18 119/64 (82) 91 Room Air 03/12/20 09:37 92 Room Air 03/12/20 08:00 36.6 75 20 129/64 (85) 92 Room Air 03/12/20 08:00 92 Room Air 3.00 I & O 03/13/20 07:00 Intake Total 1740 ml Output Total 1450 ml Balance 290 ml Capillary Refill : Less Than 3 SecondsLess Than 3 Seconds General Appearance: No Apparent Distress, WD/WN HEENT: Normal ENT Inspection, Moist Mucous Membranes Neck: Full Range of Motion, Non Tender, Supple Respiratory: Chest Non Tender, No Accessory Muscle Use, No Respiratory Distress Cardiovascular: Regular Rate, Rhythm, No Edema Gastrointestinal: soft, distended (Minimal), other (tender at incision site, no signs of infection) Extremity: Normal Capillary Refill, Non Tender, No Pedal Edema Neurologic/Psychiatric: Alert, Oriented x3, Normal Mood/Affect Skin: Normal Color, Warm/Dry Lymphatic: No Adenopathy Results Lab Microbiology 03/10/20 MRSA Screen - Final, Complete MRSA not isolated 03/09/20 Urine Culture - Final, Complete Citrobacter koseri Assessment/Plan Assessment/Plan Assessment/Plan Partial Bowel Obstruction Colonic Mass- ascending colon Hepatic mets Status post extended right hemicolectomy Garsia for accurate urine output - decreased, IV bolus 1 L NS yesterday continue to follow, once normal will remove garsia IV fluids Having bowel function increase to soft diet Encouraged incentive spirometer Pain control Encourage ambulation GI DVT prophylaxis BHUPINDER SUN DO 03/13/20 1239: Subjective Time Seen by a Provider: 12:11 Subjective/Events-last exam Pt seen and examined, denies pain and is tolerating diet. Review of Systems General: No Chills, No Night Sweats Pulmonary: No Dyspnea; Cough Cardiovascular: No: Chest Pain, Palpitations Gastrointestinal: No: Nausea, Vomiting, Abdominal Pain Objective Exam General Appearance: No Apparent Distress, WD/WN HEENT: Moist Mucous Membranes Respiratory: Lungs Clear, No Accessory Muscle Use, No Respiratory Distress Cardiovascular: Regular Rate, Rhythm, No Murmur Gastrointestinal: soft, distended (Minimal), other (tender at incision site, no signs of infection) Assessment/Plan Assessment/Plan Assessment/Plan Partial Bowel Obstruction Colonic Mass- ascending colon Hepatic mets Status post extended right hemicolectomy D/C IV and D/C home Supervisory-Addendum Brief Verification & Attestation Participated in pt care: history, MDM, physical Personally performed: exam, history, MDM Care discussed with: Medical Student Procedures: n/a Verification and Attestation of Medical Student E/M Service A medical student performed and documented this service. I then reviewed and verified all information documented by the medical student and made modifications to such information, when appropriate. I personally performed a physical exam, medical decision making and then discussed any differences between the notes and made revisions as necessary to create one note. Bhupinder Sun , 03/13/20 , 12:39 SHAWN MERIDA MED STUDENT Mar 13, 2020 06:42 BHUPINDER SUN DO Mar 13, 2020 12:39
[2020-03-13 06:45] LABS: BASOPHILS % (AUTO) 0 % (0-10); EOSINOPHILS # (AUTO) 0.3 10^3/uL (0.0-0.3); EOSINOPHILS % (AUTO) 4 % (0-10); HEMATOCRIT 35 % (40-54); HEMOGLOBIN 11.5 g/dL (13.3-17.7); LYMPHOCYTES # (AUTO) 1.3 10^3/uL (1.0-4.0); LYMPHOCYTES % (AUTO) 14 % (12-44); MEAN CORPUSCULAR HEMOGLOBIN 30 pg (25-34); MEAN CORPUSCULAR HGB CONC 33 g/dL (32-36); MEAN CORPUSCULAR VOLUME 91 fL (80-99); MEAN PLATELET VOLUME 11.9 fL (9.0-12.2); MONOCYTES # (AUTO) 0.5 10^3/uL (0.0-1.0); MONOCYTES % (AUTO) 6 % (0-12); NEUTROPHILS # (AUTO) 7.5 10^3/uL (1.8-7.8); NEUTROPHILS % (AUTO) 77 % (42-75); PLATELET COUNT 172 10^3/uL (130-400); WHITE BLOOD COUNT 9.7 10^3/uL (4.3-11.0)
[2020-03-13 06:52] LABS: POTASSIUM 4.2 MMOL/L (3.6-5.0)
[2020-03-13 06:53] LABS: CALCIUM 7.1 MG/DL (8.5-10.1)
[2020-03-13 06:57] LABS: CREATININE SERUM 1.26 MG/DL (0.60-1.30); PHOSPHORUS 2.5 MG/DL (2.3-4.7)
[2020-03-13 06:59] LABS: MAGNESIUM 2.1 MG/DL (1.6-2.4)
[2020-03-13] MEDS: RT-ALBUTEROL/IPRATROPIUM 3 ML (DUONEB) VIAL INH SCH (07:34)
--- NOTE | 2020-03-13 07:34 | NUR ---
SPO2 88% ON ROOM AIR @ REST. REPLACED O2 @ 2 LPM. SPO2 INCREASED TO 93%.
[2020-03-13] MEDS: ADVAIR HFA 115/21 MCG INHALER 8 GM IH SCH (07:37)
[2020-03-13 08:00] VITALS: BP 132/74
[2020-03-13] MEDS: PANTOPRAZOLE 40 MG (PROTONIX) VIAL IVP SCH (09:02)
[2020-03-13] MEDS: NS IV 1000 ML 1,000 ML IV SCH (09:02)
--- NOTE | 2020-03-13 09:06 | Pulmonary Progress Note ---
Subjective Time Seen by a Provider: 09:05 Subjective/Events-last exam No complications noted. Sepsis Event Evaluation Height, Weight, BMI Height: '" Weight: lbs. oz. kg; 21.38 BMI Method: Exam Exam Vital Signs Date Time Temp Pulse Resp B/P (MAP) Pulse Ox O2 Delivery O2 Flow Rate FiO2 03/13/20 08:00 36.6 75 20 132/74 (93) 96 Room Air 03/13/20 07:39 93 Nasal Cannula 2.00 03/13/20 07:34 88 Room Air 03/13/20 04:00 36.0 72 19 122/70 (87) 92 Room Air 03/13/20 00:21 36.2 80 20 115/60 (78) 93 Room Air 03/12/20 20:20 36.5 78 20 111/58 (75) 91 Room Air 03/12/20 19:43 Room Air 03/12/20 18:11 91 Room Air 03/12/20 18:10 91 Room Air 03/12/20 15:45 36.4 83 20 93/55 (68) 92 Room Air 03/12/20 14:18 92 Room Air 03/12/20 12:00 35.4 73 18 119/64 (82) 91 Room Air 03/12/20 09:37 92 Room Air I & O 03/13/20 07:00 Intake Total 1740 ml Output Total 1450 ml Balance 290 ml Height & Weight Height: '" Weight: lbs. oz. kg; 21.38 BMI Method: General Appearance: No Apparent Distress, WD/WN HEENT: Normal ENT Inspection, Moist Mucous Membranes Neck: Full Range of Motion, Non Tender, Supple Respiratory: Chest Non Tender, No Accessory Muscle Use, No Respiratory Distress Cardiovascular: Regular Rate, Rhythm, No Edema Capillary Refill: Less Than 3 Seconds Gastrointestinal: soft, distended (Minimal), other (tender at incision site, no signs of infection) Extremity: Normal Capillary Refill, Non Tender, No Pedal Edema Neurologic/Psychiatric: Alert, Oriented x3, Normal Mood/Affect Skin: Normal Color, Warm/Dry Lymphatic: No Adenopathy Results Lab Laboratory Tests 03/12/20 05:28 03/13/20 06:19 Assessment/Plan Assessment/Plan COPD and asthma hx - stable -Now on RA -advair and Duoneb TID and PRN -IS Ascending colon mass s/p open Right hemicolectomy -Surgery is following -Pain control -Cytology pending -NG is currently in place KENROY HWITEHEAD DO Mar 13, 2020 09:06
[2020-03-13] MEDS ORDERED: FLUT12AE4 IH (12:20)
[2020-03-13 12:30] VITALS: BP 150/73
--- NOTE | 2020-03-13 12:34 | Discharge Summary ---
Discharge Summary Hospital Course Problems/Dx: (1) Colonic obstruction Status: Acute Hospital Course Date of Admission: Mar 09, 2020 at 19:52 Admission Diagnosis : small bowel obstruction Family Physician/Provider: MaliaLocal Physician Date of Discharge: 03/13/20 Discharge Diagnosis: small bowel obstruction secondary to colon mass, likely metastatic colon cancer Hospital Course: Gomez Mae is a 74-year-old male who presented with abdominal bloating and constipation and was admitted with small bowel obstruction. He underwent a colonoscopy which revealed a colonic mass. He subsequently underwent a he micolectomy. The pathology is pending. He has likely liver metastasis which were visualized on CT scan as well as intraoperatively. He is being set up with oncology and will follow up at the cancer center. Labs and Pending Lab Test: Laboratory Tests 03/13/20 06:19: White Blood Count 9.7, Red Blood Count 3.88L, Hemoglobin 11.5L, Hematocrit 35L, Mean Corpuscular Volume 91, Mean Corpuscular Hemoglobin 30, Mean Corpuscular Hemoglobin Concent 33, Red Cell Distribution Width 13.9, Platelet Count 172, Mean Platelet Volume 11.9, Immature Granulocyte % (Auto) 1, Neutrophils (%) (Auto) 77H, Lymphocytes (%) (Auto) 14, Monocytes (%) (Auto) 6, Eosinophils (%) (Auto) 4, Basophils (%) (Auto) 0, Neutrophils # (Auto) 7.5, Lymphocytes # (Auto) 1.3, Monocytes # (Auto) 0.5, Eosinophils # (Auto) 0.3, Basophils # (Auto) 0.0, Immature Granulocyte # (Auto) 0.1, Sodium Level 139, Potassium Level 4.2, Chloride Level 111H, Carbon Dioxide Level 22, Anion Gap 6, Blood Urea Nitrogen 22H, Creatinine 1.26, Estimat Glomerular Filtration Rate 56, BUN/Creatinine Ratio 17, Glucose Level 90, Calcium Level 7.1L, Phosphorus Level 2.5, Magnesium Level 2.1 Microbiology 03/10/20 MRSA Screen - Final, Complete MRSA not isolated 03/09/20 Urine Culture - Final, Complete Citrobacter koseri Home Meds Active Advair Hfa 115-21 Mcg Inhaler (Fluticasone/Salmeterol) 12 Gm Hfa.aer.ad 0 Puff IH RTBID 30 Days Assessment/Pt Instructions Take medications as prescribed. The pathology from your colon mass is still pending. We are setting up to follow up in the cancer center. Return with worsening abdominal pain or you feel like you're getting worse. Discharge Planning: >30 minutes discharge planning Discharge Instructions Discharge Diet: No Restrictions Activity as Tolerated: Yes Consultations general surgery, pulmonology, oncology Discharge Physical Examination Vital Signs Vital Signs Date Time Temp Pulse Resp B/P (MAP) Pulse Ox O2 Delivery O2 Flow Rate FiO2 03/13/20 08:00 Room Air 03/13/20 08:00 36.6 75 20 132/74 (93) 96 03/13/20 07:39 2.00 03/10/20 20:00 40 General Appearance: No Apparent Distress, WD/WN Respiratory: Lungs Clear, Normal Breath Sounds, No Respiratory Distress Cardiovascular: Regular Rate, Rhythm, No Edema, No Murmur Gastrointestinal: Normal Bowel Sounds, Non Tender, Soft Extremity: Normal Inspection, Non Tender, No Pedal Edema Skin: Normal Color, Warm/Dry Neurologic/Psychiatric: Alert, Oriented x3, No Motor/Sensory Deficits, Normal Mood/Affect Allergies: Coded Allergies: No Known Drug Allergies (Unverified , 03/09/20) Discharge Summary Date of Admission Mar 09, 2020 at 19:52 Date of Discharge Discharge Date: Mar 13, 2020 Discharge Time: 12:33 Admission Diagnosis Colonic obstruction Consults/Procedures Consulations general surgery, pulmonology, oncology Discharge Diagnosis (1) Colonic obstruction Status: Acute (2) Metastatic colon cancer to liver Status: Acute ANAI VARGAS MD Mar 13, 2020 12:33
--- NOTE | 2020-03-13 12:40 | Discharge Inst-Surgical ---
Discharge Inst-Surgical Depart Medication/Instructions New, Converted or Re-Newed RX: Other Patient Instructions Follow up Appt: Make appointment for 1 week. [phone] Instructions: No lifting greater than 20 pounds. No strenuous activity. May shower in 24 hours, no tub bath or soaking. Use incentive spirometer at home as directed. No Smoking Skin/Wound Care: May remove bandages in am. You need to leave the Dermabond on incision it will fall off on it's own. Symptoms to Report: Appetite Changes, Extremity Discoloration, Numbness/Tingling, Swelling Increased, Bleeding Excessive, Eyesight Changes, Pain Increased, Urine Color Change, Constipation(Persistent), Fever over 101 degree F, Pain/Pressure in chest, Urinating Difficulty, Cough Up/Vomit Blood, Heart Beat Irreg/Pounding, Pain/Pressure in jaw, Cramps in feet or legs, Lightheadedness, Pain/Pressure in shoulder, Diarrhea(Persistent), Memory Changes Suddenly, Questions/Concerns, Weight gain consecutive days, Dizziness/Fainting, Nausea/Vomiting, Shortness of Breath, Weight gain over 2 pounds If questions or concerns contact your physician Or seek help at emergency department. Activity Activity as Tolerated: Yes Driving Instructions: No Driving/Refer to Dr. Maier Discharge Diet: No Restrictions Diet After 24 Hours: Clear Liquid if Nauseous If Any Problems/Questions/Issu: Contact Your Physician, Go to Emergency Room Skin/Wound Care Infection Signs and Symptoms: Increased Redness, Foul Odor of Wound, Increased Drainage, Skin Itchy or Has a Rash, Increased Swelling, Temperature Above 101 F Bathing Instructions: Shower Stitches/[place]/Dermabond Dis: Care of YUN Leonardo DO Mar 13, 2020 12:40
[2020-03-13] MEDS: cefTRIAXone FOR IV USE 1,000 MG in WATER (STERILE) FOR INJECTION 10 ML IV SCH (13:23)
--- NOTE | 2020-03-13 13:30 | NUR ---
"RD ASSESSMENT PMHx: chronic constipation; PT INTERACTION: Pt was awake and pleasant during nutrition assessment. Pt states current appetite is good. Note avg PO intake 73% x2d, per chart review. Pt states following a regular diet at home, and has no issues with chewing/swallowing food. Pt states recent issues with diarrhea. Note last BM was 03/12, and pt not currently on bowel regimen per chart review. Pt states no recent wt changes. Note unable to determine recent wt hx, per chart review. Est. kcal needs: 8278-8296 kcal | 25-30 kcal/kg Est. Pro needs: 63-79 g Pro | 0.8-1.0 g Pro/kg PES STATEMENT: Given current PO intake, no nutrition diagnosis at this time (NO-1.1). INTERVENTION: Continue with current diet order of DYS2 Mechanically Altered diet. Would recommend diet advancement to Regular diet as pt has no issues with chewing/swallowing food. Will continue to follow and reassess as pt needs, intake, and status change. Jeet HUGO, MS RD LD [phone] cell"
--- NOTE | 2020-03-13 14:50 | NUR ---
VINCE LEACH demonstrates understanding of discharge instructions and accurately returns instructions upon questioning. Copy of Post-Discharge Instructions and Medication Discharge Instructions given to patient and friend. VINCE LEACH is able to manage continuing needs after discharge. Patients belongings returned to patient. Skin dry and intact; no breakdown noted. Patient discharged from [facility] on 03/13/20 at 1450. VINCE LEACH left floor via wheelchair, accompanied by staff and friend.
[2020-03-13 15:00] VITALS: BP 150/73
== END 2020-03-13 15:00 | disposition home or self-care (01) | DRG 330 ==
LOC: ER 17:33 → 4TH 19:52 → ICU 03-10 18:40 → 4TH 03-11 14:47
PROVIDERS: ADMIT Internal Medicine; ATTEND Internal Medicine
PROC: 0D7 Gastrointestinal System, Dilation (ICD-10-PCS; 2020-03-10)
PROC: 0DBK8ZX Excision of Ascending Colon, Via Natural or Artificial Opening Endoscopic, Diagnostic (ICD-10-PCS; 2020-03-10)
PROC: 0DTF0ZZ Resection of Right Large Intestine, Open Approach (ICD-10-PCS; principal; 2020-03-10 12:14)
DX: C18.9 Malignant neoplasm of colon, unspecified (principal); K56.600 Partial intestinal obstruction, unspecified as to cause; N17.9 Acute kidney failure, unspecified; C78.7 Secondary malignant neoplasm of liver and intrahepatic bile duct; Z20.822 Contact with and (suspected) exposure to COVID-19; I10 Essential (primary) hypertension; F17.210 Nicotine dependence, cigarettes, uncomplicated; J44.9 Chronic obstructive pulmonary disease, unspecified; I95.9 Hypotension, unspecified
CPT/HCPCS: 36415; 71045; 74176; 80048; 80053; 81000; 82378; 82805; 83690; 83735; 84100; 85025; 86141; 87077; 87081; 87088; 87186; 87635; 90662; 94002; 94640; 94664; 94760

== ENCOUNTER → 2020-04-04 | Outpatient (CLI) | payer MEDICARE ==
[~2020-04-04] MED LIST: CATHETER FLUSH 10 ML SYR IV PRN; FLUT12AE4 IH; HOLD METFORMIN - RECEIVED CONTRAST 20 ML VIAL IV SCH; IOHEXOL 350 MG/ML 100 ML (OMNIPAQUE 350) VIAL IV ONE; NS 100 ML (IVPB) BAG IV ONE
--- NOTE | 2020-04-04 10:49 | Diagnostic Imaging Report ---
PROCEDURE: CT chest, abdomen, and pelvis with contrast. TECHNIQUE: Multiple contiguous axial images were obtained through the chest, abdomen, and pelvis after the administration of intravenous contrast. Auto Exposure Controls were utilized during the CT exam to meet ALARA standards for radiation dose reduction. INDICATION: Colon cancer. COMPARISON: 03/09/2020 FINDINGS: CT chest: Evaluation of lung rodríguez demonstrates background mild to moderate emphysematous disease. There is a 5 mm micronodule associated with the far superior margins of the left major fissure (image 28, series 4). Punctate 3 mm subpleural micronodule is also seen within the lateral margins of the right upper lobe (image 39, series 4). Finally, there is subtle ill-defined groundglass nodular density of the right lower lobe that measures 1.8 x 1.1 cm (image 102, series 4). There is no focal consolidation, large effusion, nor pneumothorax. Cardia mediastinal structures show normal heart size. There is no large pericardial effusion. Slightly prominent precarinal lymph node measures 1.3 x 1.6 cm. 1.4 x 1.1 cm right hilar lymph node is also noted (image 52, series 2). There is no prior available to assess stability. No abnormal axillary adenopathy is seen. There is moderate scattered calcified aortic and coronary atherosclerosis. Osseous structures show age-related degenerative changes. No lytic or blastic osseous lesions are seen. CT ABDOMEN: Multiple hypoenhancing masses are identified scattered throughout both lobes of the liver. Largest single lesion is identified within segment 2 and measures 2.3 x 2.4 cm. Portal vein shows normal enhancement. Benign-appearing renal cysts are identified bilaterally. Several bilateral renal cystic foci are also identified, but are too small to adequately characterize. No suspicious enhancing renal masses are seen on either side. The adrenal glands, spleen, and pancreas have a normal CT appearance. Mildly prominent portacaval lymph node measures 1.6 x 1.6 cm. No abnormal retroperitoneal adenopathy is seen. Patient is status post interval right hemicolectomy. There is some stranding of the fat at the large to small bowel anastomotic site. Several small lymph nodes are also noted in this area. There is no loculated fluid collection, free fluid or free air. Small bowel loops are now nondistended. There is moderate diffuse calcified aortic and arterial atherosclerosis. Osseous structures show age-related degenerative changes, but no acute abnormalities. CT pelvis: Urinary bladder is grossly unremarkable. There is no loculated fluid collection, free fluid, nor free air within the pelvis. No additional abnormal lymph nodes are seen. Osseous structures show no acute abnormalities IMPRESSION: 1. Interval right hemicolectomy. Again, there is some stranding the fat at the large and small bowel anastomotic site as well as several subcentimeter lymph nodes. These findings may be related to recent surgery. Early local metastatic disease cannot be excluded. 2. Redemonstration of multiple hypoenhancing masses seen scattered throughout both lobes of the liver consistent with metastasis. 3. Bilateral punctate micronodules and ill-defined groundglass density of the right lower lobe. Continued short interval follow-up is advised. CT-guided biopsy of these lesions is not advised at this time. 4. Indeterminate slightly prominent right hilar, precarinal, and portacaval lymph nodes. 5. Significant calcified aortic, coronary, and arterial atherosclerotic disease. Dictated by: Dictated on workstation # [id number]
== END ==
LOC: RAD 09:45
PROVIDERS: ATTEND Internal Medicine Hematology & Oncology
DX: C18.2 Malignant neoplasm of ascending colon (principal); I25.84 Coronary atherosclerosis due to calcified coronary lesion
CPT/HCPCS: 71260; 74177

== ENCOUNTER 2020-04-05 05:29 | Outpatient (RCR) | payer MEDICARE ==
[~2020-04-05] VITALS: Ht 188 cm; Wt 72.3 kg
[~2020-04-05 05:29] MED LIST changes: -CATHETER FLUSH 10 ML SYR IV PRN; -HOLD METFORMIN - RECEIVED CONTRAST 20 ML VIAL IV SCH; -IOHEXOL 350 MG/ML 100 ML (OMNIPAQUE 350) VIAL IV ONE; -NS 100 ML (IVPB) BAG IV ONE
[2020-04-07] MEDS ORDERED: ACHD5005 PO (12:02)
== END 2020-04-06 08:29 | disposition home or self-care (01) ==
LOC: PREOP 05:29
PROVIDERS: ATTEND Surgery
DX: Z01.818 Encounter for other preprocedural examination (principal); C18.9 Malignant neoplasm of colon, unspecified; Z20.822 Contact with and (suspected) exposure to COVID-19
CPT/HCPCS: 87635

== ENCOUNTER 2020-04-07 08:30 | Day surgery (SDC) | payer MEDICARE ==
[~2020-04-07] VITALS: Ht 188 cm; Wt 72.3 kg
[2020-04-07] VITALS (7 sets, daily range): BP systolic 87–148; BP diastolic 53–86
[2020-04-07] MEDS ORDERED: ceFAZolin 2 GM IV Premixed 50 ML IV ONE (09:00)
[2020-04-07] MEDS ORDERED: LACTATED RINGERS 1,000 ML IV PRN (09:00)
--- NOTE | 2020-04-07 09:09 | Progress Note-Pre Operative ---
Pre-Operative Progress Note H&P Reviewed The H&P was reviewed, patient examined and no changes noted. Time Seen by Provider: 09:06 Date H&P Reviewed: Apr 07, 2020 Time H&P Reviewed: 09:06 Pre-Operative Diagnosis: Metastatic Colon CA, Venous insufficiency YUN SUN DO Apr 07, 2020 09:09
[2020-04-07] MEDS ORDERED: LIDOCAINE/EPI 1%-1:200,000 (XYLOCAINE) 10 ML VIAL ONE (11:08)
[2020-04-07] MEDS ORDERED: 0.9% SODIUM CHLORIDE PF INJ 20 ML VIAL ONE ×2 (11:08→11:09)
[2020-04-07] MEDS ORDERED: HEParin (CENTRAL IV FLUSH) 500 UNIT/5 ML SYR ONE (11:08)
[2020-04-07] MEDS ORDERED: PROPOFOL INJECTION 50 ML IV ONE (11:17)
[2020-04-07] MEDS ORDERED: MIDAZOLAM 2 MG/2 ML (VERSED) VIAL ONE (11:17)
[2020-04-07] MEDS ORDERED: fentaNYL INJECTION 100 MCG/2 ML AMP ONE (11:17)
--- NOTE | 2020-04-07 12:01 | Progress Note-Post Operative ---
Post-Operative Progess Note Surgeon (s)/Internal Controls Manager (s) Surgeon YUN SUN DO Internal Controls Manager: Rika Byers MSIV Pre-Operative Diagnosis Metastatic Colon CA, Venous insufficiency Post-Operative Diagnosis same Procedure & Operative Findings Date of Procedure 04/07/20 Procedure Performed/Findings PROCEDURE: [Right] subclavian vein port placement. COMPLICATIONS: None. INDICATIONS: The patient is a 74 year old male [with metastatic colon ca and venous insufficiency]. Patient understands the risks and benefits of port placement and wished to proceed with the procedure. Consent was signed on the chart. PROCEDURE: The patient was taken to the operating suite, was prepped and draped in the sterile fashion. A surgical pause was performed. Local lidocaine was infiltrated at right chest wall and under the clavicle. Using an 18 gauge finder needle with negative inspiration the right subclavian vein was accessed. Dark nonpulsatile blood was withdrawn. The wire was inserted. Fluoroscopy assured proper placement. The needle was removed. A #11 blade scalpel was used to make an incision over the right chest and a stab incision at the guidewire. Cautery was used to dissect down to the pectoral fascia. A pocket was created with blunt dissection. The dilator sheath was then advanced over the wire under fluoroscopy and the dilator and wire were removed. The Groshong catheter was inserted through the sheath and the sheath was then removed. The catheter was then tunneled to the right chest pocket. Fluoroscopy was used to cut to length and this was then attached to the port which was then placed within the pocket. The port was then accessed without difficulty. It was then flushed with saline and then heparin. The skin was then reapproximated using 4-0 Undyed monocryl. The areas were then washed and dried. Skin Affix was placed over incision. The patient tolerated the procedure well without complication and was taken to recovery room in stable condition. Anesthesia Type IV sedation by COMPENSATION/BENEFITS SPECIALIST Estimated Blood Loss Estimated blood loss (mL): scant Specimens/Packing Specimens Removed none YUN SUN DO Apr 07, 2020 12:01
[2020-04-07] MEDS ORDERED: ACHD5005 PO (12:02)
--- NOTE | 2020-04-07 12:02 | Discharge Inst-Surgical ---
Discharge Inst-Surgical Depart Medication/Instructions New, Converted or Re-Newed RX: RX Given to Pt/Family Patient Instructions Follow up Appt: Make appointment for 1 week. [phone] Instructions: No lifting greater than 20 pounds. No strenuous activity. May shower in 24 hours, no tub bath or soaking. Use incentive spirometer at home as directed. No Smoking Skin/Wound Care: May remove bandages in am. You need to leave the Dermabond on incision it will fall off on it's own. Symptoms to Report: Appetite Changes, Extremity Discoloration, Numbness/Tingling, Swelling Increased, Bleeding Excessive, Eyesight Changes, Pain Increased, Urine Color Change, Constipation(Persistent), Fever over 101 degree F, Pain/Pressure in chest, Urinating Difficulty, Cough Up/Vomit Blood, Heart Beat Irreg/Pounding, Pain/Pressure in jaw, Cramps in feet or legs, Lightheadedness, Pain/Pressure in shoulder, Diarrhea(Persistent), Memory Changes Suddenly, Questions/Concerns, Weight gain consecutive days, Dizziness/Fainting, Nausea/Vomiting, Shortness of Breath, Weight gain over 2 pounds If questions or concerns contact your physician Or seek help at emergency department. Activity Activity as Tolerated: Yes Activity Instructions: Avoid Stress to Incision Driving Instructions: No Driving/Refer to Dr. Maier Discharge Diet: No Restrictions Diet After 24 Hours: Clear Liquid if Nauseous If Any Problems/Questions/Issu: Contact Your Physician, Go to Emergency Room Skin/Wound Care Infection Signs and Symptoms: Increased Redness, Foul Odor of Wound, Increased Drainage, Skin Itchy or Has a Rash, Increased Swelling, Temperature Above 101 F Bathing Instructions: Shower Stitches/Dang/Dermabond Dis: Dermabond Ice Pack: Ice On and Off Site YUN SUN DO Apr 07, 2020 12:02
[2020-04-07] MEDS ORDERED: HYDROmorphone 2 MG/ML VIAL (DILAUDID) IV ONE (12:15)
[2020-04-07] MEDS ORDERED: ONDANSETRON 4 MG/2 ML (SDV) Z0FRAN IVP PRN (12:15)
--- NOTE | 2020-04-07 13:29 | Diagnostic Imaging Report ---
INDICATION: Undergoing Port-A-Cath placement. TECHNIQUE: Single intraprocedural images right upper chest FINDINGS/ IMPRESSION: The hospital radiology department provided fluoroscopic imaging in support of an interventional procedure performed by Dr Pike. A radiologist was not involved in the procedure. Please reference the operating provider's procedure note. Fluoroscopy Time: 3.1 seconds Single intraprocedure Radiograph of the right upper chest demonstrates right subclavian Lvtcot-f-Mdcm catheter to be present. Tip projects over the expected location of the SVC. Dictated by: Dictated on workstation # [id number]
--- NOTE | 2020-04-12 10:56 | Anesthesia-General Post-Op ---
MAC Patient Condition Mental Status/LOC: Same as Preop Cardiovascular: Satisfactory Nausea/Vomiting: Absent Respiratory: Satisfactory Pain: Controlled Complications: Absent Post Op Complications Complications None Follow Up Care/Instructions Patient Instructions None needed. Anesthesiology Discharge Order Discharge Order Patient is doing well, no complaints, stable vital signs, no apparent adverse anesthesia problems. No complications reported per nursing. RADHA SALDANA CRNA Apr 12, 2020 10:56
== END 2020-04-07 13:50 | disposition home or self-care (01) ==
LOC: SDC 08:30
PROVIDERS: ATTEND Surgery
DX: C18.7 Malignant neoplasm of sigmoid colon (principal); C78.7 Secondary malignant neoplasm of liver and intrahepatic bile duct; I87.2 Venous insufficiency (chronic) (peripheral); J44.9 Chronic obstructive pulmonary disease, unspecified; F17.210 Nicotine dependence, cigarettes, uncomplicated; Z90.49 Acquired absence of other specified parts of digestive tract; Z90.89 Acquired absence of other organs; Z79.51 Long term (current) use of inhaled steroids; Z98.890 Other specified postprocedural states
CPT/HCPCS: 36561; 76000; 87081; C1788

== ENCOUNTER 2020-06-27 12:39 | Outpatient (RCR) | payer MEDICARE, OTHER ==
[2020-03-31 14:46] LABS: BASOPHILS # (AUTO) 0.1 10^3/uL (0.0-0.1); BASOPHILS % (AUTO) 1 % (0-10); EOSINOPHILS # (AUTO) 0.3 10^3/uL (0.0-0.3); EOSINOPHILS % (AUTO) 3 % (0-10); HEMATOCRIT 41 % (40-54); HEMOGLOBIN 12.9 g/dL (13.3-17.7); LYMPHOCYTES # (AUTO) 2.2 10^3/uL (1.0-4.0); LYMPHOCYTES % (AUTO) 24 % (12-44); MEAN CORPUSCULAR HEMOGLOBIN 29 pg (25-34); MEAN CORPUSCULAR HGB CONC 31 g/dL (32-36); MEAN CORPUSCULAR VOLUME 92 fL (80-99); MEAN PLATELET VOLUME 10.4 fL (9.0-12.2); MONOCYTES # (AUTO) 0.8 10^3/uL (0.0-1.0); MONOCYTES % (AUTO) 9 % (0-12); NEUTROPHILS # (AUTO) 5.6 10^3/uL (1.8-7.8); NEUTROPHILS % (AUTO) 62 % (42-75); PLATELET COUNT 375 10^3/uL (130-400)
[2020-03-31 15:06] LABS: ALBUMIN 3.5 GM/DL (3.2-4.5); BILIRUBIN,TOTAL 0.5 MG/DL (0.1-1.0); CALCIUM 8.8 MG/DL (8.5-10.1); CREATININE SERUM 1.31 MG/DL (0.60-1.30); POTASSIUM 3.9 MMOL/L (3.6-5.0); TOTAL PROTEIN 7.2 GM/DL (6.4-8.2)
[2020-04-12 10:58] LABS: BASOPHILS # (AUTO) 0.1 10^3/uL (0.0-0.1); BASOPHILS % (AUTO) 0 % (0-10); EOSINOPHILS # (AUTO) 0.4 10^3/uL (0.0-0.3); EOSINOPHILS % (AUTO) 4 % (0-10); HEMATOCRIT 42 % (40-54); HEMOGLOBIN 12.6 g/dL (13.3-17.7); LYMPHOCYTES # (AUTO) 2.3 10^3/uL (1.0-4.0); LYMPHOCYTES % (AUTO) 19 % (12-44); MEAN CORPUSCULAR HEMOGLOBIN 28 pg (25-34); MEAN CORPUSCULAR HGB CONC 30 g/dL (32-36); MEAN CORPUSCULAR VOLUME 92 fL (80-99); MONOCYTES # (AUTO) 1.1 10^3/uL (0.0-1.0); MONOCYTES % (AUTO) 9 % (0-12); NEUTROPHILS # (AUTO) 8.1 10^3/uL (1.8-7.8); NEUTROPHILS % (AUTO) 68 % (42-75); PLATELET COUNT 192 10^3/uL (130-400)
[2020-04-12 11:14] LABS: ALBUMIN 3.5 GM/DL (3.2-4.5); BILIRUBIN,TOTAL 0.4 MG/DL (0.1-1.0); CALCIUM 8.3 MG/DL (8.5-10.1); CREATININE SERUM 1.31 MG/DL (0.60-1.30); MAGNESIUM 1.6 MG/DL (1.6-2.4); POTASSIUM 3.8 MMOL/L (3.6-5.0); TOTAL PROTEIN 6.9 GM/DL (6.4-8.2)
[2020-04-26 13:14] LABS: BASOPHILS # (AUTO) 0.1 10^3/uL (0.0-0.1); BASOPHILS % (AUTO) 1 % (0-10); EOSINOPHILS # (AUTO) 0.4 10^3/uL (0.0-0.3); EOSINOPHILS % (AUTO) 6 % (0-10); HEMATOCRIT 39 % (40-54); HEMOGLOBIN 12.6 g/dL (13.3-17.7); LYMPHOCYTES % (AUTO) 28 % (12-44); MEAN CORPUSCULAR HEMOGLOBIN 29 pg (25-34); MEAN CORPUSCULAR HGB CONC 32 g/dL (32-36); MEAN CORPUSCULAR VOLUME 89 fL (80-99); MEAN PLATELET VOLUME 10.4 fL (9.0-12.2); MONOCYTES # (AUTO) 0.6 10^3/uL (0.0-1.0); MONOCYTES % (AUTO) 8 % (0-12); NEUTROPHILS # (AUTO) 4.1 10^3/uL (1.8-7.8); NEUTROPHILS % (AUTO) 57 % (42-75); PLATELET COUNT 196 10^3/uL (130-400); WHITE BLOOD COUNT 7.2 10^3/uL (4.3-11.0)
[2020-04-26 13:36] LABS: ALBUMIN 3.6 GM/DL (3.2-4.5); BILIRUBIN,TOTAL 0.4 MG/DL (0.1-1.0); CALCIUM 8.1 MG/DL (8.5-10.1); CREATININE SERUM 1.23 MG/DL (0.60-1.30); POTASSIUM 3.3 MMOL/L (3.6-5.0); TOTAL PROTEIN 6.9 GM/DL (6.4-8.2)
[2020-05-09 10:27] LABS: HEMATOCRIT 38 % (40-54)
[2020-05-09 10:29] LABS: BASOPHILS % (AUTO) 1 % (0-10); EOSINOPHILS # (AUTO) 0.3 10^3/uL (0.0-0.3); EOSINOPHILS % (AUTO) 4 % (0-10); HEMOGLOBIN 12.1 g/dL (13.3-17.7); LYMPHOCYTES # (AUTO) 1.7 10^3/uL (1.0-4.0); LYMPHOCYTES % (AUTO) 30 % (12-44); MEAN CORPUSCULAR HEMOGLOBIN 28 pg (25-34); MEAN CORPUSCULAR HGB CONC 32 g/dL (32-36); MEAN CORPUSCULAR VOLUME 87 fL (80-99); MEAN PLATELET VOLUME 11.3 fL (9.0-12.2); MONOCYTES # (AUTO) 0.7 10^3/uL (0.0-1.0); MONOCYTES % (AUTO) 12 % (0-12); NEUTROPHILS # (AUTO) 3.1 10^3/uL (1.8-7.8); NEUTROPHILS % (AUTO) 53 % (42-75); PLATELET COUNT 129 10^3/uL (130-400); WHITE BLOOD COUNT 5.8 10^3/uL (4.3-11.0)
[2020-05-09 10:57] LABS: ALBUMIN 3.5 GM/DL (3.2-4.5); BILIRUBIN,TOTAL 0.4 MG/DL (0.1-1.0); CALCIUM 8.4 MG/DL (8.5-10.1); CREATININE SERUM 1.21 MG/DL (0.60-1.30); MAGNESIUM 2.3 MG/DL (1.6-2.4); POTASSIUM 3.4 MMOL/L (3.6-5.0)
[2020-05-24 13:10] LABS: BASOPHILS # (AUTO) 0.1 10^3/uL (0.0-0.1); BASOPHILS % (AUTO) 2 % (0-10); EOSINOPHILS # (AUTO) 0.3 10^3/uL (0.0-0.3); EOSINOPHILS % (AUTO) 8 % (0-10); HEMATOCRIT 41 % (40-54); HEMOGLOBIN 12.8 g/dL (13.3-17.7); LYMPHOCYTES % (AUTO) 59 % (12-44); MEAN CORPUSCULAR HEMOGLOBIN 28 pg (25-34); MEAN CORPUSCULAR HGB CONC 31 g/dL (32-36); MEAN CORPUSCULAR VOLUME 88 fL (80-99); MEAN PLATELET VOLUME 11.3 fL (9.0-12.2); MONOCYTES # (AUTO) 0.5 10^3/uL (0.0-1.0); MONOCYTES % (AUTO) 16 % (0-12); NEUTROPHILS # (AUTO) 0.5 10^3/uL (1.8-7.8); NEUTROPHILS % (AUTO) 15 % (42-75); PLATELET COUNT 129 10^3/uL (130-400); WHITE BLOOD COUNT 3.4 10^3/uL (4.3-11.0)
[2020-05-24 13:19] LABS: ALBUMIN 3.6 GM/DL (3.2-4.5); POTASSIUM 3.5 MMOL/L (3.6-5.0)
[2020-05-24 13:20] LABS: CALCIUM 8.5 MG/DL (8.5-10.1)
[2020-05-24 13:22] LABS: TOTAL PROTEIN 7.1 GM/DL (6.4-8.2)
[2020-05-24 13:23] LABS: BILIRUBIN,TOTAL 0.4 MG/DL (0.1-1.0)
[2020-05-24 13:25] LABS: CREATININE SERUM 1.46 MG/DL (0.60-1.30)
[2020-05-30 13:17] LABS: BASOPHILS # (AUTO) 0.1 10^3/uL (0.0-0.1); BASOPHILS % (AUTO) 2 % (0-10); EOSINOPHILS # (AUTO) 0.3 10^3/uL (0.0-0.3); EOSINOPHILS % (AUTO) 5 % (0-10); HEMATOCRIT 42 % (40-54); HEMOGLOBIN 13.2 g/dL (13.3-17.7); LYMPHOCYTES # (AUTO) 2.6 10^3/uL (1.0-4.0); LYMPHOCYTES % (AUTO) 43 % (12-44); MEAN CORPUSCULAR HEMOGLOBIN 28 pg (25-34); MEAN CORPUSCULAR HGB CONC 31 g/dL (32-36); MEAN CORPUSCULAR VOLUME 89 fL (80-99); MEAN PLATELET VOLUME 10.9 fL (9.0-12.2); MONOCYTES # (AUTO) 0.9 10^3/uL (0.0-1.0); MONOCYTES % (AUTO) 15 % (0-12); NEUTROPHILS # (AUTO) 1.9 10^3/uL (1.8-7.8); NEUTROPHILS % (AUTO) 31 % (42-75); PLATELET COUNT 209 10^3/uL (130-400); WHITE BLOOD COUNT 6.1 10^3/uL (4.3-11.0)
[2020-05-30 13:45] LABS: ALBUMIN 3.4 GM/DL (3.2-4.5); BILIRUBIN,TOTAL 0.3 MG/DL (0.1-1.0); CALCIUM 8.5 MG/DL (8.5-10.1); CREATININE SERUM 1.42 MG/DL (0.60-1.30); POTASSIUM 3.8 MMOL/L (3.6-5.0)
[2020-06-13 14:00] LABS: BASOPHILS # (AUTO) 0.1 10^3/uL (0.0-0.1); BASOPHILS % (AUTO) 1 % (0-10); EOSINOPHILS # (AUTO) 0.4 10^3/uL (0.0-0.3); EOSINOPHILS % (AUTO) 8 % (0-10); HEMATOCRIT 41 % (40-54); HEMOGLOBIN 12.6 g/dL (13.3-17.7); LYMPHOCYTES # (AUTO) 1.7 10^3/uL (1.0-4.0); LYMPHOCYTES % (AUTO) 37 % (12-44); MEAN CORPUSCULAR HEMOGLOBIN 28 pg (25-34); MEAN CORPUSCULAR HGB CONC 31 g/dL (32-36); MEAN CORPUSCULAR VOLUME 89 fL (80-99); MEAN PLATELET VOLUME 10.6 fL (9.0-12.2); MONOCYTES # (AUTO) 0.5 10^3/uL (0.0-1.0); MONOCYTES % (AUTO) 11 % (0-12); NEUTROPHILS % (AUTO) 43 % (42-75); PLATELET COUNT 86 10^3/uL (130-400); WHITE BLOOD COUNT 4.6 10^3/uL (4.3-11.0)
[2020-06-13 14:18] LABS: ALBUMIN 3.6 GM/DL (3.2-4.5); BILIRUBIN,TOTAL 0.5 MG/DL (0.1-1.0); CALCIUM 8.4 MG/DL (8.5-10.1); CREATININE SERUM 1.41 MG/DL (0.60-1.30); POTASSIUM 3.6 MMOL/L (3.6-5.0); TOTAL PROTEIN 6.9 GM/DL (6.4-8.2)
[2020-06-20 12:58] LABS: BASOPHILS % (AUTO) 1 % (0-10); EOSINOPHILS # (AUTO) 0.4 10^3/uL (0.0-0.3); EOSINOPHILS % (AUTO) 10 % (0-10); HEMATOCRIT 40 % (40-54); HEMOGLOBIN 12.5 g/dL (13.3-17.7); LYMPHOCYTES # (AUTO) 1.7 10^3/uL (1.0-4.0); LYMPHOCYTES % (AUTO) 44 % (12-44); MEAN CORPUSCULAR HEMOGLOBIN 28 pg (25-34); MEAN CORPUSCULAR HGB CONC 31 g/dL (32-36); MEAN CORPUSCULAR VOLUME 89 fL (80-99); MONOCYTES # (AUTO) 0.3 10^3/uL (0.0-1.0); MONOCYTES % (AUTO) 8 % (0-12); NEUTROPHILS # (AUTO) 1.4 10^3/uL (1.8-7.8); NEUTROPHILS % (AUTO) 38 % (42-75); PLATELET COUNT 118 10^3/uL (130-400); WHITE BLOOD COUNT 3.8 10^3/uL (4.3-11.0)
[~2020-06-27] VITALS: Ht 182.9 cm; Wt 73.9 kg
[~2020-06-27 12:39] MED LIST changes: +ACHD5005 PO; +D5W 500 ML IV (CANCER CTR) 500 ML IV SCH; +FAMOTIDINE 20MG/2ML IV (CANCER CTR) IV SCH; +FLUOROURACIL IV SCH; +FOSAPREPITANT (CANCER CENTER) 150 MG in NS (IVPB) CANCER CENTER ONLY 150 ML IV SCH; +LEUCOVORIN CALCIUM 700 MG, LEUCOVORIN CALCIUM 100 MG in D5W 250 ML IVPB (CANCER CTR) 25... IV SCH; +NS IV SCH; +OXALIPLATIN 160 MG in D5W 250 ML IVPB (CANCER CTR) 250 ML IV SCH; +diphenhydrAMINE 25 MG TAB (BENADRYL) CANCER CENTER PO SCH
[2020-06-27 13:17] LABS: BASOPHILS # (AUTO) 0.1 10^3/uL (0.0-0.1); BASOPHILS % (AUTO) 2 % (0-10)
[2020-06-27 13:19] LABS: EOSINOPHILS # (AUTO) 0.2 10^3/uL (0.0-0.3); EOSINOPHILS % (AUTO) 6 % (0-10); HEMATOCRIT 38 % (40-54); HEMOGLOBIN 11.7 g/dL (13.3-17.7); LYMPHOCYTES # (AUTO) 1.6 10^3/uL (1.0-4.0); LYMPHOCYTES % (AUTO) 49 % (12-44); MEAN CORPUSCULAR HEMOGLOBIN 27 pg (25-34); MEAN CORPUSCULAR HGB CONC 31 g/dL (32-36); MEAN CORPUSCULAR VOLUME 89 fL (80-99); MEAN PLATELET VOLUME 10.8 fL (9.0-12.2); MONOCYTES # (AUTO) 0.6 10^3/uL (0.0-1.0); MONOCYTES % (AUTO) 18 % (0-12); NEUTROPHILS # (AUTO) 0.9 10^3/uL (1.8-7.8); NEUTROPHILS % (AUTO) 26 % (42-75); PLATELET COUNT 93 10^3/uL (130-400); WHITE BLOOD COUNT 3.4 10^3/uL (4.3-11.0)
[2020-06-27 13:41] LABS: ALBUMIN 3.5 GM/DL (3.2-4.5); BILIRUBIN,TOTAL 0.6 MG/DL (0.1-1.0); CALCIUM 8.4 MG/DL (8.5-10.1); CREATININE SERUM 1.45 MG/DL (0.60-1.30); POTASSIUM 3.7 MMOL/L (3.6-5.0); TOTAL PROTEIN 6.8 GM/DL (6.4-8.2)
[2020-06-27] MEDS ORDERED: OXALIPLATIN 100 MG, OXALIPLATIN (GENERIC) 50 MG in D5W 250 ML IVPB (CANCER CTR) 250 ML IV SCH (14:15)
[2020-06-27] MEDS ORDERED: BEVACIZUMAB BVZR IV SCH (15:15)
[2020-06-27] MEDS ORDERED: NS IV SCH (15:15)
== END 2020-06-29 | disposition home or self-care (01) ==
LOC: ONC 12:39
PROVIDERS: ATTEND Internal Medicine Hematology & Oncology
DX: C18.2 Malignant neoplasm of ascending colon (principal); Z90.49 Acquired absence of other specified parts of digestive tract
CPT/HCPCS: 80053; 82378; 85025; G0463; 36591; 83735; 96367; 96368; 96375; 96411; 96413; 96416; 99213

== ENCOUNTER → 2020-07-12 | Outpatient (CLI) | payer MEDICARE, OTHER ==
[~2020-07-12] MED LIST changes: +CATHETER FLUSH 10 ML SYR IV PRN; -D5W 500 ML IV (CANCER CTR) 500 ML IV SCH; -FAMOTIDINE 20MG/2ML IV (CANCER CTR) IV SCH; -FLUOROURACIL IV SCH; -FOSAPREPITANT (CANCER CENTER) 150 MG in NS (IVPB) CANCER CENTER ONLY 150 ML IV SCH; +HOLD METFORMIN - RECEIVED CONTRAST 20 ML VIAL IV SCH; +IOHEXOL 350 MG/ML 100 ML (OMNIPAQUE 350) VIAL IV ONE; -LEUCOVORIN CALCIUM 700 MG, LEUCOVORIN CALCIUM 100 MG in D5W 250 ML IVPB (CANCER CTR) 25... IV SCH; +NS 100 ML (IVPB) BAG IV ONE; -NS IV SCH; -OXALIPLATIN 160 MG in D5W 250 ML IVPB (CANCER CTR) 250 ML IV SCH; -diphenhydrAMINE 25 MG TAB (BENADRYL) CANCER CENTER PO SCH
--- NOTE | 2020-07-12 12:20 | Diagnostic Imaging Report ---
PROCEDURE: CT chest with contrast, CT abdomen and pelvis with and without contrast. TECHNIQUE: Pre and post intravenous contrast axial imaging of the abdomen and pelvis and post contrast axial imaging of the chest were performed. Auto Exposure Controls were utilized during the CT exam to meet ALARA standards for radiation dose reduction. INDICATION: Colon carcinoma, restaging. Comparison is made with prior CT from 04/04/2020. CT CHEST: A right chest wall port remains in place with tip in SVC. No axillary lymphadenopathy is detected. Previously noted precarinal lymph node measures approximately 1.9 x 1.1 cm compared with 1.7 x 1.3 cm on prior. No hilar lymphadenopathy is detected. There is no pericardial or pleural fluid detected. Parenchymal evaluation again demonstrates centrilobular emphysematous changes. Tiny nodule involving the major fissure on the right is 3 mm compare with 5 mm. Tiny subpleural nodule in the lateral aspect right upper lobe is barely visible at approximately 3 mm. The area of groundglass density in the right lower lobe is stable at 10 mm x 17 mm. IMPRESSION: Overall stable CT chest when compared with prior CT from 04/04/2020. CT abdomen and pelvis: Numerous low-attenuation lesions throughout the liver are again noted consistent with hepatic metastatic disease. However, these appear to be significantly reduced in size when compared with prior exam. A marker lesion in the left lobe of the liver measures 0.9 x 1.1 cm compared with 2.3 x 2.4 cm on prior. Gallbladder is unremarkable. Pancreas and spleen are unremarkable. No adrenal mass is seen. Renal cortical low densities are noted consistent with cysts. Previously noted lymph node in the region of the gabriella hepatis measures 1.5 x 1.4 cm compared with 1.6 x 1.6 cm. No central retroperitoneal lymphadenopathy is seen. Aorta is calcified but nonaneurysmal. Postsurgical changes from right hemicolectomy are again noted. Bowel loops appear to be of normal caliber. No free fluid or fluid collection is seen. No pelvic lymphadenopathy is identified. Bladder is decompressed. Prostate is unremarkable. IMPRESSION: Overall improvement in hepatic metastatic disease with decrease in size of numerous liver lesions when compared prior exam from 04/04/2020. In addition, there has been decrease in size of gabriella hepatis lymphadenopathy. No new abnormality is detected. Dictated by: Dictated on workstation # [id number]
== END ==
LOC: RAD 10:45
PROVIDERS: ATTEND Internal Medicine Hematology & Oncology
DX: C18.9 Malignant neoplasm of colon, unspecified (principal); C78.7 Secondary malignant neoplasm of liver and intrahepatic bile duct; R59.0 Localized enlarged lymph nodes
CPT/HCPCS: 71260; 74178

== ENCOUNTER → 2020-08-02 | Outpatient (CLI) | payer MEDICARE, OTHER ==
[~2020-08-02] MED LIST changes: -CATHETER FLUSH 10 ML SYR IV PRN; -HOLD METFORMIN - RECEIVED CONTRAST 20 ML VIAL IV SCH; -IOHEXOL 350 MG/ML 100 ML (OMNIPAQUE 350) VIAL IV ONE; -NS 100 ML (IVPB) BAG IV ONE
--- NOTE | 2020-08-02 10:28 | Diagnostic Imaging Report ---
EXAMINATION: Normal chest at 10:05 a.m. INDICATION: Shortness of breath. The heart size is within normal limits and stable when compared to 03/10/2020. The lungs are generally clear. There is no sign of failure, pneumonia or pleural effusion. The mediastinum is not widened. The osseous structures are intact. The ET tube and NG line seen on the prior exam have been removed. However in the interval since the prior study a Port-A-Cath has been inserted on the right. The tip of the catheter overlies the mid portion of the superior vena cava and seems to be in good position. There is no sign of a pneumothorax on the right. IMPRESSION: 1. There is no acute cardiopulmonary abnormality noted. 2. There has been interval insertion of a right-sided Port-A-Cath without apparent complication. Dictated by: Dictated on workstation # [id number]
== END ==
LOC: RAD 09:51
PROVIDERS: ATTEND Nurse Practitioner Adult Health
DX: R06.02 Shortness of breath (principal)
CPT/HCPCS: 71046

== ENCOUNTER 2020-10-04 10:15 | Outpatient (RCR) | payer MEDICARE, OTHER ==
[2020-07-19 11:08] LABS: BASOPHILS # (AUTO) 0.1 10^3/uL (0.0-0.1); BASOPHILS % (AUTO) 2 % (0-10); EOSINOPHILS # (AUTO) 0.3 10^3/uL (0.0-0.3); EOSINOPHILS % (AUTO) 5 % (0-10); HEMATOCRIT 42 % (40-54); HEMOGLOBIN 13.2 g/dL (13.3-17.7); LYMPHOCYTES % (AUTO) 36 % (12-44); MEAN CORPUSCULAR HEMOGLOBIN 28 pg (25-34); MEAN CORPUSCULAR HGB CONC 32 g/dL (32-36); MEAN CORPUSCULAR VOLUME 88 fL (80-99); MEAN PLATELET VOLUME 10.9 fL (9.0-12.2); MONOCYTES # (AUTO) 1.2 10^3/uL (0.0-1.0); MONOCYTES % (AUTO) 21 % (0-12); NEUTROPHILS # (AUTO) 1.8 10^3/uL (1.8-7.8); NEUTROPHILS % (AUTO) 32 % (42-75); PLATELET COUNT 162 10^3/uL (130-400); WHITE BLOOD COUNT 5.6 10^3/uL (4.3-11.0)
[2020-07-19 11:35] LABS: ALBUMIN 3.6 GM/DL (3.2-4.5); BILIRUBIN,TOTAL 0.4 MG/DL (0.1-1.0); CALCIUM 8.8 MG/DL (8.5-10.1); CREATININE SERUM 1.62 MG/DL (0.60-1.30); POTASSIUM 3.6 MMOL/L (3.6-5.0); TOTAL PROTEIN 7.1 GM/DL (6.4-8.2)
[2020-07-26 13:12] LABS: BASOPHILS # (AUTO) 0.1 10^3/uL (0.0-0.1); BASOPHILS % (AUTO) 1 % (0-10); EOSINOPHILS # (AUTO) 0.1 10^3/uL (0.0-0.3); EOSINOPHILS % (AUTO) 1 % (0-10); HEMATOCRIT 42 % (40-54); LYMPHOCYTES # (AUTO) 2.3 10^3/uL (1.0-4.0); LYMPHOCYTES % (AUTO) 33 % (12-44); MEAN CORPUSCULAR HEMOGLOBIN 27 pg (25-34); MEAN CORPUSCULAR HGB CONC 31 g/dL (32-36); MEAN CORPUSCULAR VOLUME 88 fL (80-99); MEAN PLATELET VOLUME 11.3 fL (9.0-12.2); MONOCYTES # (AUTO) 0.3 10^3/uL (0.0-1.0); MONOCYTES % (AUTO) 5 % (0-12); NEUTROPHILS # (AUTO) 4.2 10^3/uL (1.8-7.8); NEUTROPHILS % (AUTO) 60 % (42-75); PLATELET COUNT 126 10^3/uL (130-400)
[2020-07-26 13:41] LABS: CALCIUM 8.9 MG/DL (8.5-10.1); CREATININE SERUM 1.54 MG/DL (0.60-1.30); POTASSIUM 4.2 MMOL/L (3.6-5.0)
[2020-08-02 09:12] LABS: BASOPHILS # (AUTO) 0.1 10^3/uL (0.0-0.1); EOSINOPHILS % (AUTO) 7 % (0-10)
[2020-08-02 09:14] LABS: BASOPHILS % (AUTO) 1 % (0-10); EOSINOPHILS # (AUTO) 0.3 10^3/uL (0.0-0.3); HEMATOCRIT 38 % (40-54); HEMOGLOBIN 11.8 g/dL (13.3-17.7); LYMPHOCYTES # (AUTO) 1.8 10^3/uL (1.0-4.0); LYMPHOCYTES % (AUTO) 35 % (12-44); MEAN CORPUSCULAR HEMOGLOBIN 28 pg (25-34); MEAN CORPUSCULAR HGB CONC 31 g/dL (32-36); MEAN CORPUSCULAR VOLUME 89 fL (80-99); MEAN PLATELET VOLUME 11.1 fL (9.0-12.2); MONOCYTES # (AUTO) 0.6 10^3/uL (0.0-1.0); MONOCYTES % (AUTO) 11 % (0-12); NEUTROPHILS # (AUTO) 2.4 10^3/uL (1.8-7.8); NEUTROPHILS % (AUTO) 46 % (42-75); PLATELET COUNT 77 10^3/uL (130-400); WHITE BLOOD COUNT 5.2 10^3/uL (4.3-11.0)
[2020-08-02 09:53] LABS: ALBUMIN 3.5 GM/DL (3.2-4.5); BILIRUBIN,TOTAL 0.5 MG/DL (0.1-1.0); CALCIUM 8.5 MG/DL (8.5-10.1); CREATININE SERUM 1.31 MG/DL (0.60-1.30); MAGNESIUM 1.6 MG/DL (1.6-2.4); POTASSIUM 3.8 MMOL/L (3.6-5.0); TOTAL PROTEIN 6.7 GM/DL (6.4-8.2)
[2020-08-09 11:02] LABS: BASOPHILS # (AUTO) 0.1 10^3/uL (0.0-0.1); BASOPHILS % (AUTO) 2 % (0-10); EOSINOPHILS # (AUTO) 0.4 10^3/uL (0.0-0.3); EOSINOPHILS % (AUTO) 11 % (0-10); HEMATOCRIT 42 % (40-54); HEMOGLOBIN 12.6 g/dL (13.3-17.7); LYMPHOCYTES % (AUTO) 51 % (12-44); MEAN CORPUSCULAR HEMOGLOBIN 28 pg (25-34); MEAN CORPUSCULAR HGB CONC 30 g/dL (32-36); MEAN CORPUSCULAR VOLUME 91 fL (80-99); MEAN PLATELET VOLUME 10.2 fL (9.0-12.2); MONOCYTES # (AUTO) 0.7 10^3/uL (0.0-1.0); MONOCYTES % (AUTO) 18 % (0-12); NEUTROPHILS # (AUTO) 0.7 10^3/uL (1.8-7.8); NEUTROPHILS % (AUTO) 17 % (42-75); PLATELET COUNT 191 10^3/uL (130-400); WHITE BLOOD COUNT 3.9 10^3/uL (4.3-11.0)
[2020-08-09 11:28] LABS: ALBUMIN 3.7 GM/DL (3.2-4.5); BILIRUBIN,TOTAL 0.5 MG/DL (0.1-1.0); CALCIUM 8.6 MG/DL (8.5-10.1); CREATININE SERUM 1.48 MG/DL (0.60-1.30); MAGNESIUM 1.9 MG/DL (1.6-2.4); POTASSIUM 3.5 MMOL/L (3.6-5.0); TOTAL PROTEIN 7.1 GM/DL (6.4-8.2)
[2020-08-16 13:21] LABS: EOSINOPHILS # (AUTO) 0.2 10^3/uL (0.0-0.3); HEMOGLOBIN 12.7 g/dL (13.3-17.7); MONOCYTES # (AUTO) 0.4 10^3/uL (0.0-1.0)
[2020-08-16 13:23] LABS: BASOPHILS # (AUTO) 0.1 10^3/uL (0.0-0.1); BASOPHILS % (AUTO) 2 % (0-10); EOSINOPHILS % (AUTO) 3 % (0-10); HEMATOCRIT 41 % (40-54); LYMPHOCYTES # (AUTO) 2.1 10^3/uL (1.0-4.0); LYMPHOCYTES % (AUTO) 38 % (12-44); MEAN CORPUSCULAR HEMOGLOBIN 28 pg (25-34); MEAN CORPUSCULAR HGB CONC 31 g/dL (32-36); MEAN CORPUSCULAR VOLUME 89 fL (80-99); MEAN PLATELET VOLUME 11.2 fL (9.0-12.2); MONOCYTES % (AUTO) 7 % (0-12); NEUTROPHILS # (AUTO) 2.7 10^3/uL (1.8-7.8); NEUTROPHILS % (AUTO) 49 % (42-75); PLATELET COUNT 114 10^3/uL (130-400); WHITE BLOOD COUNT 5.5 10^3/uL (4.3-11.0)
[2020-08-16 13:42] LABS: CALCIUM 8.9 MG/DL (8.5-10.1); CREATININE SERUM 1.34 MG/DL (0.60-1.30); POTASSIUM 3.9 MMOL/L (3.6-5.0)
[2020-08-23 09:08] LABS: BASOPHILS # (AUTO) 0.1 10^3/uL (0.0-0.1); BASOPHILS % (AUTO) 2 % (0-10); EOSINOPHILS # (AUTO) 0.2 10^3/uL (0.0-0.3); EOSINOPHILS % (AUTO) 5 % (0-10); HEMATOCRIT 38 % (40-54); LYMPHOCYTES # (AUTO) 1.8 X 10^3 (1.0-4.0); LYMPHOCYTES % (AUTO) 37 % (12-44); MEAN CORPUSCULAR HEMOGLOBIN 28 pg (25-34); MEAN CORPUSCULAR HGB CONC 32 g/dL (32-36); MEAN CORPUSCULAR VOLUME 90 fL (80-99); MEAN PLATELET VOLUME 10.3 fL (9.0-12.2); MONOCYTES # (AUTO) 0.5 X 10^3 (0.0-1.0); MONOCYTES % (AUTO) 10 % (0-12); NEUTROPHILS # (AUTO) 2.2 X 10^3 (1.8-7.8); NEUTROPHILS % (AUTO) 46 % (42-75); PLATELET COUNT 86 10^3/uL (130-400); WHITE BLOOD COUNT 4.7 10^3/uL (4.3-11.0)
[2020-08-23 09:27] LABS: ALBUMIN 3.6 GM/DL (3.2-4.5); BILIRUBIN,TOTAL 0.4 MG/DL (0.1-1.0); CALCIUM 8.4 MG/DL (8.5-10.1); CREATININE SERUM 1.43 MG/DL (0.60-1.30); MAGNESIUM 1.7 MG/DL (1.6-2.4); POTASSIUM 3.8 MMOL/L (3.6-5.0); TOTAL PROTEIN 7.4 GM/DL (6.4-8.2)
[2020-08-30 13:02] LABS: HEMATOCRIT 39 % (40-54)
[2020-08-30 13:04] LABS: BASOPHILS % (AUTO) 1 % (0-10); EOSINOPHILS # (AUTO) 0.3 10^3/uL (0.0-0.3); EOSINOPHILS % (AUTO) 7 % (0-10); HEMOGLOBIN 12.1 g/dL (13.3-17.7); LYMPHOCYTES # (AUTO) 1.7 10^3/uL (1.0-4.0); LYMPHOCYTES % (AUTO) 40 % (12-44); MEAN CORPUSCULAR HEMOGLOBIN 28 pg (25-34); MEAN CORPUSCULAR HGB CONC 31 g/dL (32-36); MEAN CORPUSCULAR VOLUME 91 fL (80-99); MEAN PLATELET VOLUME 11.6 fL (9.0-12.2); MONOCYTES # (AUTO) 0.4 10^3/uL (0.0-1.0); MONOCYTES % (AUTO) 10 % (0-12); NEUTROPHILS # (AUTO) 1.7 10^3/uL (1.8-7.8); NEUTROPHILS % (AUTO) 41 % (42-75); PLATELET COUNT 98 10^3/uL (130-400); WHITE BLOOD COUNT 4.2 10^3/uL (4.3-11.0)
[2020-08-30 13:19] LABS: CALCIUM 8.5 MG/DL (8.5-10.1); CREATININE SERUM 1.47 MG/DL (0.60-1.30); POTASSIUM 3.8 MMOL/L (3.6-5.0)
[2020-09-06 11:08] LABS: BASOPHILS # (AUTO) 0.1 10^3/uL (0.0-0.1); BASOPHILS % (AUTO) 1 % (0-10); HEMATOCRIT 40 % (40-54); HEMOGLOBIN 12.4 g/dL (13.3-17.7); MEAN CORPUSCULAR HEMOGLOBIN 28 pg (25-34); MEAN CORPUSCULAR HGB CONC 31 g/dL (32-36); MEAN CORPUSCULAR VOLUME 91 fL (80-99); NEUTROPHILS # (AUTO) 1.4 10^3/uL (1.8-7.8)
[2020-09-06 11:10] LABS: EOSINOPHILS # (AUTO) 0.3 10^3/uL (0.0-0.3); EOSINOPHILS % (AUTO) 7 % (0-10); LYMPHOCYTES # (AUTO) 1.5 10^3/uL (1.0-4.0); LYMPHOCYTES % (AUTO) 39 % (12-44); MEAN PLATELET VOLUME 11.7 fL (9.0-12.2); MONOCYTES # (AUTO) 0.6 10^3/uL (0.0-1.0); MONOCYTES % (AUTO) 16 % (0-12); NEUTROPHILS % (AUTO) 37 % (42-75); WHITE BLOOD COUNT 3.8 10^3/uL (4.3-11.0)
[2020-09-06 11:11] LABS: PLATELET COUNT 103 10^3/uL (130-400)
[2020-09-06 11:29] LABS: ALBUMIN 3.7 GM/DL (3.2-4.5); BILIRUBIN,TOTAL 0.5 MG/DL (0.1-1.0); CALCIUM 8.4 MG/DL (8.5-10.1); CREATININE SERUM 1.48 MG/DL (0.60-1.30); MAGNESIUM 1.8 MG/DL (1.6-2.4); POTASSIUM 3.8 MMOL/L (3.6-5.0); TOTAL PROTEIN 7.6 GM/DL (6.4-8.2)
[2020-09-13 13:05] LABS: HEMOGLOBIN 12.9 g/dL (13.3-17.7); WHITE BLOOD COUNT 4.9 10^3/uL (4.3-11.0)
[2020-09-13 13:07] LABS: BASOPHILS # (AUTO) 0.1 10^3/uL (0.0-0.1); BASOPHILS % (AUTO) 1 % (0-10); EOSINOPHILS # (AUTO) 0.1 10^3/uL (0.0-0.3); EOSINOPHILS % (AUTO) 3 % (0-10); HEMATOCRIT 42 % (40-54); LYMPHOCYTES # (AUTO) 1.9 10^3/uL (1.0-4.0); LYMPHOCYTES % (AUTO) 38 % (12-44); MEAN CORPUSCULAR HEMOGLOBIN 28 pg (25-34); MEAN CORPUSCULAR HGB CONC 31 g/dL (32-36); MEAN CORPUSCULAR VOLUME 90 fL (80-99); MEAN PLATELET VOLUME 11.6 fL (9.0-12.2); MONOCYTES # (AUTO) 0.3 10^3/uL (0.0-1.0); MONOCYTES % (AUTO) 6 % (0-12); NEUTROPHILS # (AUTO) 2.5 10^3/uL (1.8-7.8); NEUTROPHILS % (AUTO) 52 % (42-75); PLATELET COUNT 107 10^3/uL (130-400)
[2020-09-13 13:25] LABS: CALCIUM 8.9 MG/DL (8.5-10.1); CREATININE SERUM 1.44 MG/DL (0.60-1.30); POTASSIUM 4.1 MMOL/L (3.6-5.0)
[2020-09-20 10:47] LABS: MEAN PLATELET VOLUME 11.6 fL (9.0-12.2); NEUTROPHILS # (AUTO) 2.1 10^3/uL (1.8-7.8)
[2020-09-20 10:49] LABS: BASOPHILS # (AUTO) 0.1 10^3/uL (0.0-0.1); BASOPHILS % (AUTO) 1 % (0-10); EOSINOPHILS # (AUTO) 0.3 10^3/uL (0.0-0.3); EOSINOPHILS % (AUTO) 6 % (0-10); HEMATOCRIT 40 % (40-54); HEMOGLOBIN 12.2 g/dL (13.3-17.7); LYMPHOCYTES # (AUTO) 1.8 10^3/uL (1.0-4.0); LYMPHOCYTES % (AUTO) 37 % (12-44); MEAN CORPUSCULAR HEMOGLOBIN 28 pg (25-34); MEAN CORPUSCULAR HGB CONC 31 g/dL (32-36); MEAN CORPUSCULAR VOLUME 91 fL (80-99); MONOCYTES # (AUTO) 0.6 10^3/uL (0.0-1.0); MONOCYTES % (AUTO) 12 % (0-12); NEUTROPHILS % (AUTO) 44 % (42-75); PLATELET COUNT 79 10^3/uL (130-400); WHITE BLOOD COUNT 4.8 10^3/uL (4.3-11.0)
[2020-09-20 11:03] LABS: ALBUMIN 3.5 GM/DL (3.2-4.5); BILIRUBIN,TOTAL 0.7 MG/DL (0.1-1.0); CALCIUM 8.6 MG/DL (8.5-10.1); CREATININE SERUM 1.44 MG/DL (0.60-1.30); MAGNESIUM 1.7 MG/DL (1.6-2.4); POTASSIUM 3.4 MMOL/L (3.6-5.0); TOTAL PROTEIN 7.3 GM/DL (6.4-8.2)
[2020-09-27 12:52] LABS: BASOPHILS # (AUTO) 0.1 10^3/uL (0.0-0.1); BASOPHILS % (AUTO) 1 % (0-10); EOSINOPHILS # (AUTO) 0.2 10^3/uL (0.0-0.3); HEMOGLOBIN 12.3 g/dL (13.3-17.7)
[2020-09-27 12:54] LABS: EOSINOPHILS % (AUTO) 4 % (0-10); HEMATOCRIT 39 % (40-54); LYMPHOCYTES # (AUTO) 1.8 10^3/uL (1.0-4.0); LYMPHOCYTES % (AUTO) 37 % (12-44); MEAN CORPUSCULAR HEMOGLOBIN 29 pg (25-34); MEAN CORPUSCULAR HGB CONC 32 g/dL (32-36); MEAN CORPUSCULAR VOLUME 90 fL (80-99); MONOCYTES # (AUTO) 0.4 10^3/uL (0.0-1.0); MONOCYTES % (AUTO) 9 % (0-12); NEUTROPHILS # (AUTO) 2.3 10^3/uL (1.8-7.8); NEUTROPHILS % (AUTO) 48 % (42-75); PLATELET COUNT 103 10^3/uL (130-400); WHITE BLOOD COUNT 4.8 10^3/uL (4.3-11.0)
[2020-09-27 13:11] LABS: CALCIUM 9.3 MG/DL (8.5-10.1); CREATININE SERUM 1.41 MG/DL (0.60-1.30); POTASSIUM 3.6 MMOL/L (3.6-5.0)
[~2020-10-04] VITALS: Ht 182.9 cm; Wt 78.9 kg
[~2020-10-04 10:15] MED LIST changes: +BEVACIZUMAB BVZR IV SCH; +D5W 500 ML IV (CANCER CTR) 500 ML IV SCH; +FAMOTIDINE 20MG/2ML IV (CANCER CTR) IV SCH; +FLUOROURACIL IV SCH; +FOSAPREPITANT (CANCER CENTER) 150 MG in NS (IVPB) CANCER CENTER ONLY 150 ML IV SCH; +LEUCOVORIN CALCIUM 600 MG in D5W 250 ML IVPB (CANCER CTR) 250 ML IV SCH; +LEUCOVORIN CALCIUM 700 MG, LEUCOVORIN CALCIUM 100 MG in D5W 250 ML IVPB (CANCER CTR) 25... IV SCH; +NS IV SCH; +OXALIPLATIN 100 MG, OXALIPLATIN (GENERIC) 20 MG in D5W 250 ML IVPB (CANCER CTR) 250 ML IV SCH; +OXALIPLATIN 100 MG, OXALIPLATIN (GENERIC) 40 MG in D5W 250 ML IVPB (CANCER CTR) 250 ML IV SCH; +OXALIPLATIN 100 MG, OXALIPLATIN (GENERIC) 50 MG in D5W 250 ML IVPB (CANCER CTR) 250 ML IV SCH; +diphenhydrAMINE 25 MG TAB (BENADRYL) CANCER CENTER PO SCH
[2020-10-04 10:44] LABS: BASOPHILS # (AUTO) 0.1 10^3/uL (0.0-0.1); BASOPHILS % (AUTO) 2 % (0-10)
[2020-10-04 10:46] LABS: EOSINOPHILS # (AUTO) 0.4 10^3/uL (0.0-0.3); EOSINOPHILS % (AUTO) 8 % (0-10); HEMATOCRIT 39 % (40-54); HEMOGLOBIN 12.1 g/dL (13.3-17.7); LYMPHOCYTES # (AUTO) 1.6 10^3/uL (1.0-4.0); LYMPHOCYTES % (AUTO) 34 % (12-44); MEAN CORPUSCULAR HEMOGLOBIN 28 pg (25-34); MEAN CORPUSCULAR HGB CONC 31 g/dL (32-36); MEAN CORPUSCULAR VOLUME 92 fL (80-99); MEAN PLATELET VOLUME 10.8 fL (9.0-12.2); MONOCYTES # (AUTO) 0.6 10^3/uL (0.0-1.0); MONOCYTES % (AUTO) 13 % (0-12); NEUTROPHILS % (AUTO) 43 % (42-75); PLATELET COUNT 83 10^3/uL (130-400); WHITE BLOOD COUNT 4.6 10^3/uL (4.3-11.0)
[2020-10-04 11:04] LABS: ALBUMIN 3.6 GM/DL (3.2-4.5); BILIRUBIN,TOTAL 0.5 MG/DL (0.1-1.0); CALCIUM 8.8 MG/DL (8.5-10.1); CREATININE SERUM 1.4 MG/DL (0.60-1.30); MAGNESIUM 1.9 MG/DL (1.6-2.4); POTASSIUM 3.6 MMOL/L (3.6-5.0); TOTAL PROTEIN 7.5 GM/DL (6.4-8.2)
== END 2020-10-05 | disposition home or self-care (01) ==
LOC: ONC 10:15
PROVIDERS: ATTEND Internal Medicine Hematology & Oncology
DX: Z51.11 Encounter for antineoplastic chemotherapy (principal); C18.2 Malignant neoplasm of ascending colon; C78.7 Secondary malignant neoplasm of liver and intrahepatic bile duct; G62.9 Polyneuropathy, unspecified; Z90.49 Acquired absence of other specified parts of digestive tract; F17.210 Nicotine dependence, cigarettes, uncomplicated; Z79.899 Other long term (current) drug therapy
CPT/HCPCS: 36591; 80048; 80053; 82378; 83735; 85025; 96367; 96368; 96375; 96411; 96413; 99213

== ENCOUNTER → 2020-10-10 | Outpatient (CLI) | payer MEDICARE, OTHER ==
[~2020-10-10] MED LIST changes: +BARIUM SUSPENSION 2.1% (VANILLA SILQ) 450 ML PO ONE; -BEVACIZUMAB BVZR IV SCH; +CATHETER FLUSH 10 ML SYR IV PRN; -D5W 500 ML IV (CANCER CTR) 500 ML IV SCH; -FAMOTIDINE 20MG/2ML IV (CANCER CTR) IV SCH; -FLUOROURACIL IV SCH; -FOSAPREPITANT (CANCER CENTER) 150 MG in NS (IVPB) CANCER CENTER ONLY 150 ML IV SCH; +GADOBUTROL 7.5 MMOL/7.5 ML (GADAVIST) VIAL IV ONE; +HOLD METFORMIN - RECEIVED CONTRAST 20 ML VIAL IV SCH; +IOHEXOL 350 MG/ML 100 ML (OMNIPAQUE 350) VIAL IV ONE; -LEUCOVORIN CALCIUM 600 MG in D5W 250 ML IVPB (CANCER CTR) 250 ML IV SCH; -LEUCOVORIN CALCIUM 700 MG, LEUCOVORIN CALCIUM 100 MG in D5W 250 ML IVPB (CANCER CTR) 25... IV SCH; +NS 100 ML (IVPB) BAG IV ONE; -NS IV SCH; -OXALIPLATIN 100 MG, OXALIPLATIN (GENERIC) 20 MG in D5W 250 ML IVPB (CANCER CTR) 250 ML IV SCH; -OXALIPLATIN 100 MG, OXALIPLATIN (GENERIC) 40 MG in D5W 250 ML IVPB (CANCER CTR) 250 ML IV SCH; -OXALIPLATIN 100 MG, OXALIPLATIN (GENERIC) 50 MG in D5W 250 ML IVPB (CANCER CTR) 250 ML IV SCH; -diphenhydrAMINE 25 MG TAB (BENADRYL) CANCER CENTER PO SCH
--- NOTE | 2020-10-10 11:36 | Diagnostic Imaging Report ---
CLINICAL INDICATION: Patient has history of malignant neoplasm of ascending colon. EXAM: MRI of the brain performed without and with 7 cc of Gadavist IV contrast. Sequences include axial DWI, ADC map, axial gradient echo, axial T2, axial FLAIR, axial T1, axial T1 post IV contrast, coronal T1 fat-sat post IV contrast, and sagittal T1 post IV contrast. COMPARISON: None. FINDINGS: There is no evidence of acute cerebral infarct, intracranial hemorrhage, or gross mass effect. There is no abnormal IV contrast enhancement. The brain parenchymal volume appears appropriate for patient's age. There are focal and patchy areas of high T2 signal white matter changes involving both cerebral hemispheres and periventricular regions likely related to chronic small vessel ischemic disease. There is normal mcgrath-white matter distinction. There is no significant midline shift or herniation. The the [place] vascular structures show no gross abnormality as visualized. The pituitary gland, sella, and suprasellar regions are unremarkable as visualized. There is no evidence of hydrocephalus. The basal cisterns are unremarkable. The skull, extracranial soft tissue, and orbits are unremarkable. There is mild mucosal thickening involving the frontal sinus and ethmoid sinus. Temporal bones show no significant abnormality. IMPRESSION: 1: There is no evidence of acute intracranial process. 2: Age-related brain parenchymal changes. 3: Paranasal sinus disease. Dictated by: Dictated on workstation # [id number]
--- NOTE | 2020-10-10 11:45 | Diagnostic Imaging Report ---
PROCEDURE: CT chest with contrast, CT abdomen and pelvis with and without contrast. TECHNIQUE: Pre and post intravenous contrast axial imaging of the abdomen and pelvis and post contrast axial imaging of the chest were performed. Auto Exposure Controls were utilized during the CT exam to meet ALARA standards for radiation dose reduction. INDICATION: Colon carcinoma of the ascending colon, metastatic disease to the liver. CORRELATION STUDY: 07/12/2020, 04/04/2020. FINDINGS: CT CHEST: The right IJ Yzhdgj-o-Lgap catheter tip is in the SVC. Heart size is within normal limits. Scattered coronary artery calcification. Thoracic aortic contour is unremarkable. 16 x 11 mm right precarinal lymph node, stable. No definitive new or enlarging lymphadenopathy. Emphysematous changes about the lung parenchyma. Very small area of nodularity, likely thickening, in the superior fissure plane posteromedial left lung, stable. Tiny nodule lateral aspect of the right upper lobe, stable. No definitive new concerning or enlarging pulmonary mass. No infiltrate. The osseous structures demonstrate no acute bony abnormality. No jimmy bony lytic or sclerotic change. CT ABDOMEN and PELVIS: Multiple low-density masses scattered throughout both lobes of the liver parenchyma again demonstrated. Marker lesion left hepatic lobe is 8 x 7 mm (image 111 series 3), previously 11 x 9 mm. Additional lesion in the lateral somewhat left hepatic lobe slightly more inferiorly measuring 9 x 6 mm (image 117 series 3), previously 12 x 8 mm. Marker lesion posterior right hepatic lobe is 13 x 10 mm (image 114 series 3), previously 13 x 12 mm. The gallbladder, pancreas, spleen, and adrenal glands are unremarkable. Multiple cysts of both kidneys. There is prominent atherosclerotic change about the abdominal aorta which is diffusely ectatic. No jimmy aneurysm. A gabriella-hepatic lymph node currently is 11 x 11 mm (image 126 series 3), previously 14 x 15 mm. No pathologically enlarged aortocaval lymph nodes. Scattered shotty mesenteric and aortocaval lymph nodes are present. Surgical changes of the right colon are present. No bowel obstruction. Slight distortion of the soft tissues in and around the operative bed. No definitive pericolonic mass. Urinary bladder is relatively decompressed with some bladder wall thickening. Prostate gland unremarkable. Mildly advanced degenerative changes about the lumbar spine. IMPRESSION: CT CHEST: Overall stable CT chest examination. No evidence for acute abnormality. No findings to suggest thoracic metastatic disease. CT ABDOMEN and PELVIS: Multiple hepatic lesions as well as a small gabriella hepatic lymph node do persist but overall measuring slightly smaller from prior. No definitive adverse interval change or new abnormality demonstrated at followup assessment. Dictated by: Dictated on workstation # [id number]
== END ==
LOC: RAD 09:45
PROVIDERS: ATTEND Internal Medicine Hematology & Oncology
DX: C18.2 Malignant neoplasm of ascending colon (principal); C78.7 Secondary malignant neoplasm of liver and intrahepatic bile duct; G31.1 Senile degeneration of brain, not elsewhere classified; J32.9 Chronic sinusitis, unspecified
CPT/HCPCS: 70553; 71260; 74178

== ENCOUNTER 2020-12-20 12:23 | Outpatient (RCR) | payer MEDICARE, OTHER ==
[2020-10-18 13:38] LABS: BASOPHILS # (AUTO) 0.1 10^3/uL (0.0-0.1); BASOPHILS % (AUTO) 1 % (0-10); EOSINOPHILS # (AUTO) 0.4 10^3/uL (0.0-0.3); EOSINOPHILS % (AUTO) 5 % (0-10); HEMATOCRIT 43 % (40-54); HEMOGLOBIN 13.3 g/dL (13.3-17.7); LYMPHOCYTES # (AUTO) 2.1 10^3/uL (1.0-4.0); LYMPHOCYTES % (AUTO) 26 % (12-44); MEAN CORPUSCULAR HEMOGLOBIN 28 pg (25-34); MEAN CORPUSCULAR HGB CONC 31 g/dL (32-36); MEAN CORPUSCULAR VOLUME 90 fL (80-99); MEAN PLATELET VOLUME 12.1 fL (9.0-12.2); MONOCYTES % (AUTO) 12 % (0-12); NEUTROPHILS # (AUTO) 4.5 10^3/uL (1.8-7.8); NEUTROPHILS % (AUTO) 55 % (42-75); PLATELET COUNT 102 10^3/uL (130-400); WHITE BLOOD COUNT 8.1 10^3/uL (4.3-11.0)
[2020-10-18 13:53] LABS: ALBUMIN 3.7 GM/DL (3.2-4.5); BILIRUBIN,TOTAL 0.5 MG/DL (0.1-1.0); CALCIUM 9.2 MG/DL (8.5-10.1); CREATININE SERUM 1.59 MG/DL (0.60-1.30); MAGNESIUM 1.9 MG/DL (1.6-2.4); POTASSIUM 3.9 MMOL/L (3.6-5.0); TOTAL PROTEIN 7.6 GM/DL (6.4-8.2)
[2020-10-25 13:02] LABS: BASOPHILS # (AUTO) 0.1 10^3/uL (0.0-0.1); BASOPHILS % (AUTO) 1 % (0-10); HEMOGLOBIN 13.3 g/dL (13.3-17.7); MEAN CORPUSCULAR HEMOGLOBIN 28 pg (25-34); MEAN CORPUSCULAR VOLUME 92 fL (80-99)
[2020-10-25 13:04] LABS: EOSINOPHILS # (AUTO) 0.2 10^3/uL (0.0-0.3); EOSINOPHILS % (AUTO) 3 % (0-10); HEMATOCRIT 43 % (40-54); LYMPHOCYTES # (AUTO) 1.7 10^3/uL (1.0-4.0); LYMPHOCYTES % (AUTO) 25 % (12-44); MEAN CORPUSCULAR HGB CONC 31 g/dL (32-36); MEAN PLATELET VOLUME 12.3 fL (9.0-12.2); MONOCYTES # (AUTO) 0.6 10^3/uL (0.0-1.0); MONOCYTES % (AUTO) 9 % (0-12); NEUTROPHILS # (AUTO) 4.2 10^3/uL (1.8-7.8); NEUTROPHILS % (AUTO) 61 % (42-75); PLATELET COUNT 90 10^3/uL (130-400); WHITE BLOOD COUNT 6.9 10^3/uL (4.3-11.0)
[2020-10-25 13:14] LABS: CALCIUM 9.2 MG/DL (8.5-10.1); CREATININE SERUM 1.49 MG/DL (0.60-1.30)
[2020-11-01 10:02] LABS: MEAN CORPUSCULAR HEMOGLOBIN 29 pg (25-34); MEAN CORPUSCULAR HGB CONC 32 g/dL (32-36)
[2020-11-01 10:04] LABS: BASOPHILS # (AUTO) 0.1 10^3/uL (0.0-0.1); BASOPHILS % (AUTO) 1 % (0-10); EOSINOPHILS # (AUTO) 0.5 10^3/uL (0.0-0.3); EOSINOPHILS % (AUTO) 7 % (0-10); HEMATOCRIT 41 % (40-54); HEMOGLOBIN 12.9 g/dL (13.3-17.7); LYMPHOCYTES # (AUTO) 1.6 10^3/uL (1.0-4.0); LYMPHOCYTES % (AUTO) 23 % (12-44); MEAN CORPUSCULAR VOLUME 90 fL (80-99); MEAN PLATELET VOLUME 10.9 fL (9.0-12.2); MONOCYTES # (AUTO) 0.7 10^3/uL (0.0-1.0); MONOCYTES % (AUTO) 10 % (0-12); NEUTROPHILS # (AUTO) 3.9 10^3/uL (1.8-7.8); NEUTROPHILS % (AUTO) 58 % (42-75); PLATELET COUNT 99 10^3/uL (130-400); WHITE BLOOD COUNT 6.7 10^3/uL (4.3-11.0)
[2020-11-01 10:26] LABS: ALBUMIN 3.7 GM/DL (3.2-4.5); BILIRUBIN,TOTAL 0.9 MG/DL (0.1-1.0); CALCIUM 8.8 MG/DL (8.5-10.1); CREATININE SERUM 1.37 MG/DL (0.60-1.30); MAGNESIUM 1.8 MG/DL (1.6-2.4); POTASSIUM 3.7 MMOL/L (3.6-5.0); TOTAL PROTEIN 7.6 GM/DL (6.4-8.2)
[2020-11-08 13:01] LABS: EOSINOPHILS # (AUTO) 0.3 10^3/uL (0.0-0.3); HEMOGLOBIN 12.8 g/dL (13.3-17.7); MEAN CORPUSCULAR VOLUME 93 fL (80-99); MONOCYTES # (AUTO) 0.4 10^3/uL (0.0-1.0); NEUTROPHILS # (AUTO) 1.4 10^3/uL (1.8-7.8)
[2020-11-08 13:03] LABS: BASOPHILS % (AUTO) 1 % (0-10); EOSINOPHILS % (AUTO) 8 % (0-10); HEMATOCRIT 41 % (40-54); LYMPHOCYTES # (AUTO) 1.4 10^3/uL (1.0-4.0); LYMPHOCYTES % (AUTO) 39 % (12-44); MEAN CORPUSCULAR HEMOGLOBIN 29 pg (25-34); MEAN CORPUSCULAR HGB CONC 31 g/dL (32-36); MEAN PLATELET VOLUME 11.5 fL (9.0-12.2); MONOCYTES % (AUTO) 12 % (0-12); NEUTROPHILS % (AUTO) 40 % (42-75); PLATELET COUNT 91 10^3/uL (130-400); WHITE BLOOD COUNT 3.6 10^3/uL (4.3-11.0)
[2020-11-08 13:21] LABS: CALCIUM 8.9 MG/DL (8.5-10.1); CREATININE SERUM 1.42 MG/DL (0.60-1.30); POTASSIUM 3.6 MMOL/L (3.6-5.0)
[2020-11-15 11:24] LABS: EOSINOPHILS # (AUTO) 0.3 10^3/uL (0.0-0.3); MEAN PLATELET VOLUME 11.4 fL (9.0-12.2)
[2020-11-15 11:25] LABS: BASOPHILS # (AUTO) 0.1 10^3/uL (0.0-0.1); BASOPHILS % (AUTO) 1 % (0-10); EOSINOPHILS % (AUTO) 5 % (0-10); HEMATOCRIT 41 % (40-54); HEMOGLOBIN 12.7 g/dL (13.3-17.7); LYMPHOCYTES # (AUTO) 1.6 10^3/uL (1.0-4.0); LYMPHOCYTES % (AUTO) 31 % (12-44); MEAN CORPUSCULAR HEMOGLOBIN 28 pg (25-34); MEAN CORPUSCULAR HGB CONC 31 g/dL (32-36); MEAN CORPUSCULAR VOLUME 91 fL (80-99); MONOCYTES # (AUTO) 0.6 10^3/uL (0.0-1.0); MONOCYTES % (AUTO) 11 % (0-12); NEUTROPHILS # (AUTO) 2.7 10^3/uL (1.8-7.8); NEUTROPHILS % (AUTO) 52 % (42-75); WHITE BLOOD COUNT 5.2 10^3/uL (4.3-11.0)
[2020-11-15 11:27] LABS: PLATELET COUNT 92 10^3/uL (130-400)
[2020-11-15 11:46] LABS: CALCIUM 8.9 MG/DL (8.5-10.1); CREATININE SERUM 1.33 MG/DL (0.60-1.30); POTASSIUM 3.4 MMOL/L (3.6-5.0)
[2020-11-22 13:23] LABS: BASOPHILS # (AUTO) 0.1 10^3/uL (0.0-0.1); BASOPHILS % (AUTO) 1 % (0-10); EOSINOPHILS # (AUTO) 0.2 10^3/uL (0.0-0.3); MEAN CORPUSCULAR HGB CONC 31 g/dL (32-36)
[2020-11-22 13:24] LABS: EOSINOPHILS % (AUTO) 4 % (0-10); HEMATOCRIT 43 % (40-54); HEMOGLOBIN 13.5 g/dL (13.3-17.7); LYMPHOCYTES # (AUTO) 2.1 10^3/uL (1.0-4.0); LYMPHOCYTES % (AUTO) 41 % (12-44); MEAN CORPUSCULAR HEMOGLOBIN 29 pg (25-34); MEAN CORPUSCULAR VOLUME 91 fL (80-99); MEAN PLATELET VOLUME 11.6 fL (9.0-12.2); MONOCYTES # (AUTO) 0.6 10^3/uL (0.0-1.0); MONOCYTES % (AUTO) 12 % (0-12); NEUTROPHILS # (AUTO) 2.2 10^3/uL (1.8-7.8); NEUTROPHILS % (AUTO) 42 % (42-75); PLATELET COUNT 114 10^3/uL (130-400); WHITE BLOOD COUNT 5.2 10^3/uL (4.3-11.0)
[2020-11-22 13:33] LABS: CALCIUM 9.1 MG/DL (8.5-10.1); CREATININE SERUM 1.44 MG/DL (0.60-1.30); POTASSIUM 3.6 MMOL/L (3.6-5.0)
[2020-11-29 09:47] LABS: BASOPHILS # (AUTO) 0.1 10^3/uL (0.0-0.1); BASOPHILS % (AUTO) 1 % (0-10); EOSINOPHILS # (AUTO) 0.3 10^3/uL (0.0-0.3); EOSINOPHILS % (AUTO) 5 % (0-10); HEMATOCRIT 41 % (40-54); HEMOGLOBIN 13.1 g/dL (13.3-17.7); LYMPHOCYTES # (AUTO) 1.7 10^3/uL (1.0-4.0); LYMPHOCYTES % (AUTO) 27 % (12-44); MEAN CORPUSCULAR HEMOGLOBIN 29 pg (25-34); MEAN CORPUSCULAR HGB CONC 32 g/dL (32-36); MEAN CORPUSCULAR VOLUME 91 fL (80-99); MEAN PLATELET VOLUME 10.6 fL (9.0-12.2); MONOCYTES # (AUTO) 0.6 10^3/uL (0.0-1.0); MONOCYTES % (AUTO) 10 % (0-12); NEUTROPHILS # (AUTO) 3.5 10^3/uL (1.8-7.8); NEUTROPHILS % (AUTO) 57 % (42-75); PLATELET COUNT 104 10^3/uL (130-400); WHITE BLOOD COUNT 6.2 10^3/uL (4.3-11.0)
[2020-11-29 10:17] LABS: ALBUMIN 3.6 GM/DL (3.2-4.5); BILIRUBIN,TOTAL 0.7 MG/DL (0.1-1.0); CALCIUM 8.9 MG/DL (8.5-10.1); CREATININE SERUM 1.49 MG/DL (0.60-1.30); POTASSIUM 3.3 MMOL/L (3.6-5.0); TOTAL PROTEIN 7.4 GM/DL (6.4-8.2)
[2020-12-06 13:09] LABS: BASOPHILS % (AUTO) 1 % (0-10)
[2020-12-06 13:11] LABS: EOSINOPHILS # (AUTO) 0.2 10^3/uL (0.0-0.3); EOSINOPHILS % (AUTO) 4 % (0-10); HEMATOCRIT 44 % (40-54); HEMOGLOBIN 13.8 g/dL (13.3-17.7); LYMPHOCYTES # (AUTO) 1.9 10^3/uL (1.0-4.0); LYMPHOCYTES % (AUTO) 43 % (12-44); MEAN CORPUSCULAR HEMOGLOBIN 29 pg (25-34); MEAN CORPUSCULAR HGB CONC 31 g/dL (32-36); MEAN CORPUSCULAR VOLUME 92 fL (80-99); MEAN PLATELET VOLUME 11.6 fL (9.0-12.2); MONOCYTES # (AUTO) 0.5 10^3/uL (0.0-1.0); MONOCYTES % (AUTO) 11 % (0-12); NEUTROPHILS # (AUTO) 1.8 10^3/uL (1.8-7.8); NEUTROPHILS % (AUTO) 41 % (42-75); PLATELET COUNT 115 10^3/uL (130-400); WHITE BLOOD COUNT 4.3 10^3/uL (4.3-11.0)
[2020-12-06 13:36] LABS: CALCIUM 9.1 MG/DL (8.5-10.1); CREATININE SERUM 1.52 MG/DL (0.60-1.30); POTASSIUM 3.7 MMOL/L (3.6-5.0)
[~2020-12-20 12:23] MED LIST changes: -BARIUM SUSPENSION 2.1% (VANILLA SILQ) 450 ML PO ONE; +BEVACIZUMAB BVZR IV SCH; -CATHETER FLUSH 10 ML SYR IV PRN; +D5W 500 ML IV (CANCER CTR) 500 ML IV SCH; +FAMOTIDINE 20MG/2ML IV (CANCER CTR) IV SCH; +FLUOROURACIL IV SCH; +FOSAPREPITANT (CANCER CENTER) 150 MG in NS (IVPB) CANCER CENTER ONLY 150 ML IV SCH; -GADOBUTROL 7.5 MMOL/7.5 ML (GADAVIST) VIAL IV ONE; -HOLD METFORMIN - RECEIVED CONTRAST 20 ML VIAL IV SCH; -IOHEXOL 350 MG/ML 100 ML (OMNIPAQUE 350) VIAL IV ONE; +LEUCOVORIN CALCIUM 600 MG in D5W 250 ML IVPB (CANCER CTR) 250 ML IV SCH; -NS 100 ML (IVPB) BAG IV ONE; +NS IV 1000 ML (CANCER CTR) 1,000 ML ONE; +NS IV SCH; +OXALIPLATIN 100 MG, OXALIPLATIN (GENERIC) 20 MG in D5W 250 ML IVPB (CANCER CTR) 250 ML IV SCH; +diphenhydrAMINE 25 MG TAB (BENADRYL) CANCER CENTER PO SCH
[2020-12-27] MEDS ORDERED: NS IV 1000 ML (CANCER CTR) 1,000 ML ONE (14:10)
== END 2021-01-08 | disposition home or self-care (01) ==
LOC: ONC 12:23
PROVIDERS: ATTEND Internal Medicine Hematology & Oncology
DX: Z51.11 Encounter for antineoplastic chemotherapy (principal); C18.2 Malignant neoplasm of ascending colon; C78.7 Secondary malignant neoplasm of liver and intrahepatic bile duct; Z90.49 Acquired absence of other specified parts of digestive tract; Z92.21 Personal history of antineoplastic chemotherapy
CPT/HCPCS: 36591; 80048; 80053; 82378; 83735; 85025; 96360; 96365; 96368; 96375; 96409; 96411

== ENCOUNTER → 2021-01-17 | Outpatient (CLI) | payer MEDICARE, MEDICAID, OTHER ==
[~2021-01-17] MED LIST changes: +BARIUM SUSPENSION 2.1% (VANILLA SILQ) 450 ML PO ONE; -BEVACIZUMAB BVZR IV SCH; +CATHETER FLUSH 10 ML SYR IV PRN; -D5W 500 ML IV (CANCER CTR) 500 ML IV SCH; -FAMOTIDINE 20MG/2ML IV (CANCER CTR) IV SCH; -FLUOROURACIL IV SCH; -FOSAPREPITANT (CANCER CENTER) 150 MG in NS (IVPB) CANCER CENTER ONLY 150 ML IV SCH; +HOLD METFORMIN - RECEIVED CONTRAST 20 ML VIAL IV SCH; +IOHEXOL 350 MG/ML 100 ML (OMNIPAQUE 350) VIAL IV ONE; -LEUCOVORIN CALCIUM 600 MG in D5W 250 ML IVPB (CANCER CTR) 250 ML IV SCH; +NS 100 ML (IVPB) BAG IV ONE; -NS IV 1000 ML (CANCER CTR) 1,000 ML ONE; -NS IV SCH; -OXALIPLATIN 100 MG, OXALIPLATIN (GENERIC) 20 MG in D5W 250 ML IVPB (CANCER CTR) 250 ML IV SCH; -diphenhydrAMINE 25 MG TAB (BENADRYL) CANCER CENTER PO SCH
--- NOTE | 2021-01-17 12:17 | Diagnostic Imaging Report ---
EXAMINATION: CT chest, abdomen and pelvis with intravenous contrast. TECHNIQUE: Multiple contiguous axial images were obtained through the chest, abdomen and pelvis after the uneventful administration of intravenous contrast. All CT scans use one or more of the following dose optimizing techniques: automated exposure control, MA and/or KvP adjustment based on patient size and exam type or iterative reconstruction. HISTORY: Colon cancer COMPARISON: 10/10/2020 FINDINGS: There is no edema or pneumonia. No pleural effusion. No pneumothorax. No suspicious nodules. There is mucous in the airway. There is no axillary or supraclavicular lymphadenopathy. There is no mediastinal lymphadenopathy. Heart size is normal. There are moderate coronary artery calcifications. No pericardial effusion. Aorta is normal in caliber. There is right-sided Port-A-Cath. There is a segment seven 13 x 10 mm liver lesion which is unchanged. There are two lesions in segment two of the liver measuring up to 7 x 7 mm which are unchanged. No new lesions are seen. There is no biliary ductal dilation. Gallbladder is normal. Pancreas is normal. Spleen is normal. Adrenal glands are normal. There are small cysts in the kidneys. No suspicious renal lesions. There is no hydronephrosis. Urinary bladder is normal. Visualized bowel is normal in caliber without obstruction or inflammation. No free fluid or air. No abdominal or pelvic lymphadenopathy. Aorta is normal in caliber without aneurysm. There are no suspicious osseus lesions. IMPRESSION: 1. Stable hepatic metastatic disease. No new disease seen in the chest abdomen or pelvis. Dictated by: Dictated on workstation # [id number]
== END ==
LOC: RAD 11:15
PROVIDERS: ATTEND Nurse Practitioner Adult Health
DX: C18.2 Malignant neoplasm of ascending colon (principal); C78.7 Secondary malignant neoplasm of liver and intrahepatic bile duct
CPT/HCPCS: 71260; 74177

== ENCOUNTER 2021-02-06 12:32 | Outpatient (RCR) | payer MEDICARE, OTHER, MEDICAID ==
[2020-12-13 12:48] LABS: BASOPHILS # (AUTO) 0.1 10^3/uL (0.0-0.1); BASOPHILS % (AUTO) 1 % (0-10); EOSINOPHILS # (AUTO) 0.3 10^3/uL (0.0-0.3); EOSINOPHILS % (AUTO) 4 % (0-10); HEMATOCRIT 43 % (40-54); HEMOGLOBIN 13.3 g/dL (13.3-17.7); LYMPHOCYTES # (AUTO) 1.6 10^3/uL (1.0-4.0); LYMPHOCYTES % (AUTO) 24 % (12-44); MEAN CORPUSCULAR HEMOGLOBIN 28 pg (25-34); MEAN CORPUSCULAR HGB CONC 31 g/dL (32-36); MEAN CORPUSCULAR VOLUME 90 fL (80-99); MEAN PLATELET VOLUME 12.2 fL (9.0-12.2); MONOCYTES # (AUTO) 0.5 10^3/uL (0.0-1.0); MONOCYTES % (AUTO) 8 % (0-12); NEUTROPHILS # (AUTO) 4.3 10^3/uL (1.8-7.8); NEUTROPHILS % (AUTO) 63 % (42-75); PLATELET COUNT 98 10^3/uL (130-400); WHITE BLOOD COUNT 6.8 10^3/uL (4.3-11.0)
[2020-12-13 13:01] LABS: CREATININE SERUM 1.5 MG/DL (0.60-1.30); POTASSIUM 3.5 MMOL/L (3.6-5.0)
[2020-12-20 12:47] LABS: BASOPHILS # (AUTO) 0.1 10^3/uL (0.0-0.1)
[2020-12-20 12:49] LABS: BASOPHILS % (AUTO) 1 % (0-10); EOSINOPHILS # (AUTO) 0.3 10^3/uL (0.0-0.3); EOSINOPHILS % (AUTO) 6 % (0-10); HEMATOCRIT 42 % (40-54); HEMOGLOBIN 13.1 g/dL (13.3-17.7); LYMPHOCYTES # (AUTO) 1.7 10^3/uL (1.0-4.0); LYMPHOCYTES % (AUTO) 37 % (12-44); MEAN CORPUSCULAR HEMOGLOBIN 28 pg (25-34); MEAN CORPUSCULAR HGB CONC 32 g/dL (32-36); MEAN CORPUSCULAR VOLUME 90 fL (80-99); MEAN PLATELET VOLUME 10.6 fL (9.0-12.2); MONOCYTES # (AUTO) 0.6 10^3/uL (0.0-1.0); MONOCYTES % (AUTO) 14 % (0-12); NEUTROPHILS # (AUTO) 1.9 10^3/uL (1.8-7.8); NEUTROPHILS % (AUTO) 42 % (42-75); PLATELET COUNT 98 10^3/uL (130-400); WHITE BLOOD COUNT 4.5 10^3/uL (4.3-11.0)
[2020-12-20 13:05] LABS: CALCIUM 8.9 MG/DL (8.5-10.1); CREATININE SERUM 1.48 MG/DL (0.60-1.30); POTASSIUM 4.1 MMOL/L (3.6-5.0)
[2020-12-27 13:37] LABS: EOSINOPHILS # (AUTO) 0.4 10^3/uL (0.0-0.3); HEMOGLOBIN 13.1 g/dL (13.3-17.7); MEAN CORPUSCULAR HEMOGLOBIN 28 pg (25-34); MEAN CORPUSCULAR HGB CONC 31 g/dL (32-36)
[2020-12-27 13:39] LABS: BASOPHILS # (AUTO) 0.1 10^3/uL (0.0-0.1); BASOPHILS % (AUTO) 1 % (0-10); EOSINOPHILS % (AUTO) 6 % (0-10); HEMATOCRIT 42 % (40-54); LYMPHOCYTES # (AUTO) 1.6 10^3/uL (1.0-4.0); LYMPHOCYTES % (AUTO) 26 % (12-44); MEAN CORPUSCULAR VOLUME 91 fL (80-99); MEAN PLATELET VOLUME 11.5 fL (9.0-12.2); MONOCYTES # (AUTO) 0.5 10^3/uL (0.0-1.0); MONOCYTES % (AUTO) 8 % (0-12); NEUTROPHILS # (AUTO) 3.5 10^3/uL (1.8-7.8); NEUTROPHILS % (AUTO) 59 % (42-75); PLATELET COUNT 101 10^3/uL (130-400)
[2020-12-27 14:03] LABS: ALBUMIN 3.5 GM/DL (3.2-4.5); BILIRUBIN,TOTAL 0.7 MG/DL (0.1-1.0); CALCIUM 8.8 MG/DL (8.5-10.1); CREATININE SERUM 1.54 MG/DL (0.60-1.30); POTASSIUM 3.5 MMOL/L (3.6-5.0); TOTAL PROTEIN 7.2 GM/DL (6.4-8.2)
[2021-01-03 11:54] LABS: BASOPHILS # (AUTO) 0.1 10^3/uL (0.0-0.1)
[2021-01-03 11:56] LABS: BASOPHILS % (AUTO) 1 % (0-10); EOSINOPHILS # (AUTO) 0.2 10^3/uL (0.0-0.3); EOSINOPHILS % (AUTO) 4 % (0-10); HEMATOCRIT 44 % (40-54); HEMOGLOBIN 13.7 g/dL (13.3-17.7); LYMPHOCYTES # (AUTO) 2.1 10^3/uL (1.0-4.0); LYMPHOCYTES % (AUTO) 35 % (12-44); MEAN CORPUSCULAR HEMOGLOBIN 28 pg (25-34); MEAN CORPUSCULAR HGB CONC 31 g/dL (32-36); MEAN CORPUSCULAR VOLUME 91 fL (80-99); MEAN PLATELET VOLUME 11.3 fL (9.0-12.2); MONOCYTES # (AUTO) 0.8 10^3/uL (0.0-1.0); MONOCYTES % (AUTO) 13 % (0-12); NEUTROPHILS # (AUTO) 2.8 10^3/uL (1.8-7.8); NEUTROPHILS % (AUTO) 47 % (42-75); PLATELET COUNT 125 10^3/uL (130-400)
[2021-01-03 12:15] LABS: CREATININE SERUM 1.46 MG/DL (0.60-1.30); POTASSIUM 3.5 MMOL/L (3.6-5.0)
[2021-01-10 13:31] LABS: BASOPHILS # (AUTO) 0.1 10^3/uL (0.0-0.1); BASOPHILS % (AUTO) 1 % (0-10); EOSINOPHILS # (AUTO) 0.3 10^3/uL (0.0-0.3); EOSINOPHILS % (AUTO) 5 % (0-10); HEMATOCRIT 42 % (40-54); HEMOGLOBIN 13.1 g/dL (13.3-17.7); LYMPHOCYTES # (AUTO) 1.4 10^3/uL (1.0-4.0); LYMPHOCYTES % (AUTO) 21 % (12-44); MEAN CORPUSCULAR HEMOGLOBIN 28 pg (25-34); MEAN CORPUSCULAR HGB CONC 31 g/dL (32-36); MEAN CORPUSCULAR VOLUME 90 fL (80-99); MEAN PLATELET VOLUME 11.4 fL (9.0-12.2); MONOCYTES # (AUTO) 0.7 10^3/uL (0.0-1.0); MONOCYTES % (AUTO) 11 % (0-12); NEUTROPHILS # (AUTO) 4.3 10^3/uL (1.8-7.8); NEUTROPHILS % (AUTO) 63 % (42-75); PLATELET COUNT 117 10^3/uL (130-400); WHITE BLOOD COUNT 6.9 10^3/uL (4.3-11.0)
[2021-01-10 13:47] LABS: CALCIUM 8.3 MG/DL (8.5-10.1); CREATININE SERUM 1.39 MG/DL (0.60-1.30); POTASSIUM 3.4 MMOL/L (3.6-5.0)
[2021-01-17 11:33] LABS: HEMOGLOBIN 14.1 g/dL (13.3-17.7)
[2021-01-17 11:35] LABS: BASOPHILS # (AUTO) 0.1 10^3/uL (0.0-0.1); BASOPHILS % (AUTO) 1 % (0-10); EOSINOPHILS # (AUTO) 0.2 10^3/uL (0.0-0.3); EOSINOPHILS % (AUTO) 4 % (0-10); HEMATOCRIT 45 % (40-54); LYMPHOCYTES # (AUTO) 1.8 10^3/uL (1.0-4.0); LYMPHOCYTES % (AUTO) 35 % (12-44); MEAN CORPUSCULAR HEMOGLOBIN 28 pg (25-34); MEAN CORPUSCULAR HGB CONC 31 g/dL (32-36); MEAN CORPUSCULAR VOLUME 90 fL (80-99); MEAN PLATELET VOLUME 11.4 fL (9.0-12.2); MONOCYTES # (AUTO) 0.6 10^3/uL (0.0-1.0); MONOCYTES % (AUTO) 13 % (0-12); NEUTROPHILS # (AUTO) 2.4 10^3/uL (1.8-7.8); NEUTROPHILS % (AUTO) 47 % (42-75); PLATELET COUNT 126 10^3/uL (130-400)
[2021-01-17 11:50] LABS: CALCIUM 8.6 MG/DL (8.5-10.1); CREATININE SERUM 1.45 MG/DL (0.60-1.30); POTASSIUM 3.6 MMOL/L (3.6-5.0)
[2021-01-24 13:34] LABS: EOSINOPHILS # (AUTO) 0.3 10^3/uL (0.0-0.3); EOSINOPHILS % (AUTO) 5 % (0-10); MEAN CORPUSCULAR VOLUME 89 fL (80-99); MEAN PLATELET VOLUME 11.4 fL (9.0-12.2)
[2021-01-24 13:35] LABS: BASOPHILS # (AUTO) 0.1 10^3/uL (0.0-0.1); BASOPHILS % (AUTO) 1 % (0-10); HEMATOCRIT 44 % (40-54); HEMOGLOBIN 13.7 g/dL (13.3-17.7); LYMPHOCYTES # (AUTO) 1.8 10^3/uL (1.0-4.0); LYMPHOCYTES % (AUTO) 25 % (12-44); MEAN CORPUSCULAR HEMOGLOBIN 28 pg (25-34); MEAN CORPUSCULAR HGB CONC 31 g/dL (32-36); MONOCYTES # (AUTO) 0.7 10^3/uL (0.0-1.0); MONOCYTES % (AUTO) 10 % (0-12); NEUTROPHILS # (AUTO) 4.4 10^3/uL (1.8-7.8); NEUTROPHILS % (AUTO) 60 % (42-75); PLATELET COUNT 105 10^3/uL (130-400); WHITE BLOOD COUNT 7.3 10^3/uL (4.3-11.0)
[2021-01-24 13:51] LABS: ALBUMIN 3.6 GM/DL (3.2-4.5); BILIRUBIN,TOTAL 0.9 MG/DL (0.1-1.0); CALCIUM 8.6 MG/DL (8.5-10.1); CREATININE SERUM 1.61 MG/DL (0.60-1.30); POTASSIUM 3.6 MMOL/L (3.6-5.0); TOTAL PROTEIN 7.1 GM/DL (6.4-8.2)
[2021-01-31 11:44] LABS: HEMOGLOBIN 13.6 g/dL (13.3-17.7); MEAN CORPUSCULAR HEMOGLOBIN 28 pg (25-34); MEAN CORPUSCULAR VOLUME 89 fL (80-99)
[2021-01-31 11:46] LABS: BASOPHILS # (AUTO) 0.1 10^3/uL (0.0-0.1); BASOPHILS % (AUTO) 1 % (0-10); EOSINOPHILS # (AUTO) 0.2 10^3/uL (0.0-0.3); EOSINOPHILS % (AUTO) 4 % (0-10); HEMATOCRIT 44 % (40-54); LYMPHOCYTES # (AUTO) 1.6 10^3/uL (1.0-4.0); LYMPHOCYTES % (AUTO) 34 % (12-44); MEAN CORPUSCULAR HGB CONC 31 g/dL (32-36); MEAN PLATELET VOLUME 11.1 fL (9.0-12.2); MONOCYTES # (AUTO) 0.5 10^3/uL (0.0-1.0); MONOCYTES % (AUTO) 11 % (0-12); NEUTROPHILS # (AUTO) 2.5 10^3/uL (1.8-7.8); NEUTROPHILS % (AUTO) 50 % (42-75); PLATELET COUNT 103 10^3/uL (130-400); WHITE BLOOD COUNT 4.9 10^3/uL (4.3-11.0)
[2021-01-31 12:02] LABS: CALCIUM 8.7 MG/DL (8.5-10.1); CREATININE SERUM 1.46 MG/DL (0.60-1.30); POTASSIUM 3.6 MMOL/L (3.6-5.0)
[~2021-02-06 12:32] MED LIST changes: -BARIUM SUSPENSION 2.1% (VANILLA SILQ) 450 ML PO ONE; +BEVACIZUMAB BVZR IV SCH; -CATHETER FLUSH 10 ML SYR IV PRN; +D5W 500 ML IV (CANCER CTR) 500 ML IV SCH; -HOLD METFORMIN - RECEIVED CONTRAST 20 ML VIAL IV SCH; -IOHEXOL 350 MG/ML 100 ML (OMNIPAQUE 350) VIAL IV ONE; +LEUCOVORIN CALCIUM 600 MG in D5W 250 ML IVPB (CANCER CTR) 250 ML IV SCH; -NS 100 ML (IVPB) BAG IV ONE; +NS IV 1000 ML (CANCER CTR) 1,000 ML IV SCH; +NS IV SCH
[2021-02-06 13:06] LABS: HEMOGLOBIN 13.1 g/dL (13.3-17.7); MEAN CORPUSCULAR VOLUME 89 fL (80-99)
[2021-02-06 13:08] LABS: BASOPHILS # (AUTO) 0.1 10^3/uL (0.0-0.1); BASOPHILS % (AUTO) 1 % (0-10); EOSINOPHILS # (AUTO) 0.4 10^3/uL (0.0-0.3); EOSINOPHILS % (AUTO) 5 % (0-10); HEMATOCRIT 42 % (40-54); LYMPHOCYTES # (AUTO) 1.6 10^3/uL (1.0-4.0); LYMPHOCYTES % (AUTO) 23 % (12-44); MEAN CORPUSCULAR HEMOGLOBIN 28 pg (25-34); MEAN CORPUSCULAR HGB CONC 31 g/dL (32-36); MEAN PLATELET VOLUME 10.7 fL (9.0-12.2); MONOCYTES # (AUTO) 0.9 10^3/uL (0.0-1.0); MONOCYTES % (AUTO) 12 % (0-12); NEUTROPHILS # (AUTO) 4.2 10^3/uL (1.8-7.8); NEUTROPHILS % (AUTO) 59 % (42-75); PLATELET COUNT 106 10^3/uL (130-400); WHITE BLOOD COUNT 7.2 10^3/uL (4.3-11.0)
[2021-02-06 13:24] LABS: CALCIUM 8.9 MG/DL (8.5-10.1); CREATININE SERUM 1.48 MG/DL (0.60-1.30); POTASSIUM 3.8 MMOL/L (3.6-5.0)
== END 2021-02-09 | disposition still patient (30) ==
LOC: ONC 12:32
PROVIDERS: ATTEND Internal Medicine Hematology & Oncology
DX: Z51.11 Encounter for antineoplastic chemotherapy (principal); C18.2 Malignant neoplasm of ascending colon; C78.7 Secondary malignant neoplasm of liver and intrahepatic bile duct; Z79.899 Other long term (current) drug therapy
CPT/HCPCS: 36591; 80048; 80053; 82378; 85025; 96365; 96368; 96375; 96409; 96411

== ENCOUNTER 2021-02-14 12:22 | Outpatient (RCR) | payer MEDICARE, OTHER, MEDICAID ==
[~2021-02-14 12:22] MED LIST changes: -BEVACIZUMAB BVZR IV SCH; -D5W 500 ML IV (CANCER CTR) 500 ML IV SCH; -LEUCOVORIN CALCIUM 600 MG in D5W 250 ML IVPB (CANCER CTR) 250 ML IV SCH; -NS IV 1000 ML (CANCER CTR) 1,000 ML IV SCH; -NS IV SCH
[2021-02-14 12:47] LABS: BASOPHILS # (AUTO) 0.1 10^3/uL (0.0-0.1); BASOPHILS % (AUTO) 1 % (0-10); MEAN PLATELET VOLUME 10.9 fL (9.0-12.2)
[2021-02-14 12:48] LABS: EOSINOPHILS # (AUTO) 0.4 10^3/uL (0.0-0.3); EOSINOPHILS % (AUTO) 6 % (0-10); HEMATOCRIT 45 % (40-54); HEMOGLOBIN 13.9 g/dL (13.3-17.7); LYMPHOCYTES # (AUTO) 1.5 10^3/uL (1.0-4.0); LYMPHOCYTES % (AUTO) 26 % (12-44); MEAN CORPUSCULAR HEMOGLOBIN 28 pg (25-34); MEAN CORPUSCULAR HGB CONC 31 g/dL (32-36); MEAN CORPUSCULAR VOLUME 90 fL (80-99); MONOCYTES # (AUTO) 0.5 10^3/uL (0.0-1.0); MONOCYTES % (AUTO) 9 % (0-12); NEUTROPHILS # (AUTO) 3.2 10^3/uL (1.8-7.8); NEUTROPHILS % (AUTO) 57 % (42-75); PLATELET COUNT 118 10^3/uL (130-400); WHITE BLOOD COUNT 5.7 10^3/uL (4.3-11.0)
[2021-02-14 13:05] LABS: CALCIUM 8.8 MG/DL (8.5-10.1); CREATININE SERUM 1.58 MG/DL (0.60-1.30); POTASSIUM 3.9 MMOL/L (3.6-5.0)
[2021-02-21] MEDS ORDERED: NS IV 1000 ML (CANCER CTR) 1,000 ML IV SCH (08:06)
[2021-02-21] MEDS ORDERED: BEVACIZUMAB BVZR IV SCH (08:06)
[2021-02-21] MEDS ORDERED: NS IV SCH (08:06)
[2021-02-21] MEDS ORDERED: LEUCOVORIN CALCIUM 600 MG in D5W 250 ML IVPB (CANCER CTR) 250 ML IV SCH (08:06)
== END 2021-03-12 | disposition home or self-care (01) ==
LOC: ONC 12:22
PROVIDERS: ATTEND Internal Medicine Hematology & Oncology
DX: C18.2 Malignant neoplasm of ascending colon (principal); C78.7 Secondary malignant neoplasm of liver and intrahepatic bile duct; Z79.899 Other long term (current) drug therapy
CPT/HCPCS: 80048; 85025

== ENCOUNTER → 2021-07-26 | Outpatient (CLI) | payer MEDICARE, MEDICAID | LOC: CARD 13:00 | PROVIDERS: ATTEND Internal Medicine Cardiovascular Disease | DX: I35.1 Nonrheumatic aortic (valve) insufficiency (principal); I35.8 Other nonrheumatic aortic valve disorders; I25.10 Atherosclerotic heart disease of native coronary artery without angina pectoris | CPT/HCPCS: 93306 ==

== ENCOUNTER → 2021-08-07 | Outpatient (CLI) | payer MEDICARE, MEDICAID ==
[~2021-08-07] VITALS: Ht 187 cm; Wt 81.0 kg
[~2021-08-07] MED LIST changes: +REGADENOSON 0.4 MG/5 ML SYR (LEXISCAN) IV ONE
[2021-08-07] MEDS: CATHETER FLUSH 10 ML SYR IVP PRN ×2 (10:48→11:41)
[2021-08-07 11:40] VITALS: BP 159/84
--- NOTE | 2021-08-07 23:44 | STRESS TEST ---
DATE OF SERVICE: 08/07/2021 RESTING AND POST REGADENOSON TECHNETIUM-99M TETROFOSMIN SPECT CT IMAGING ORDERING PHYSICIAN: Dr. Padilla. OTHER PHYSICIAN: Dr. Calero. CLINICAL DIAGNOSIS: Coronary artery disease. Baseline images were carried out after injection of 10.72 mCi of technetium-99m Tetrofosmin. This was followed by 0.4 mg regadenoson and 32.9 mCi of technetium-99m Tetrofosmin for stress imaging. The electrocardiogram showed sinus rhythm at baseline. It did not change significantly with regadenoson infusion. The patient tolerated the procedure well. Review of images at rest and following stress indicates a somewhat diminished count uptake in the diaphragmatic wall of the left ventricle. This appears to be due to diaphragmatic attenuation. This is seen both at rest and following regadenoson infusion. Gated images show normal global left ventricular systolic function with normal regional wall motion, including the diaphragmatic wall of the left ventricle. Left ventricular ejection fraction is calculated to be 69%. Left ventricular end-diastolic volume is 68 mL. TID is absent (0.99). CONCLUSIONS: 1. No evidence of any significant myocardial ischemia or infarction on this study. 2. Normal regional wall motion. 3. Normal global left ventricular systolic function with a calculated ejection fraction of 69%. Job ID: [id number] DocumentID: [id number] Dictated Date: 08/07/2021 17:03:32 Contract Driver Date: 08/07/2021 23:42:35 Dictated By: SERGEY PADILLA MD, MA, FACP, FACC,
== END ==
LOC: CARD 10:38
PROVIDERS: ATTEND Internal Medicine Cardiovascular Disease
DX: I25.10 Atherosclerotic heart disease of native coronary artery without angina pectoris (principal)
CPT/HCPCS: 78452; 93017; A9502

== ENCOUNTER → 2021-10-24 | Outpatient (CLI) | payer MEDICARE, MEDICAID ==
[~2021-10-24] MED LIST changes: -REGADENOSON 0.4 MG/5 ML SYR (LEXISCAN) IV ONE
--- NOTE | 2021-10-24 13:36 | Diagnostic Imaging Report ---
PROCEDURE: US Renal Bilateral. TECHNIQUE: Multiple Real-time grayscale images were obtained over the kidneys in various projections bilaterally. INDICATION: Chronic kidney disease. FINDINGS: The right kidney measures 9.1 x 5.5 x 5.5 cm and the left kidney measures 8.9 x 4.2 x 5.7 cm. The cortical thickness and echogenicity are normal. There are no calculi seen. There is no hydronephrosis. There are bilateral renal cysts present. The largest on the right is approximately 17 mm with the largest on the left approximately 25 mm. The prevoid bladder volume is 145 mL. The post void volume is 18 mL. Bilateral ureteral jets were visualized. IMPRESSION: Bilateral renal cysts. No calculus or hydronephrosis is detected. Dictated by: Dictated on workstation # [id number]
== END ==
LOC: RAD 12:45
PROVIDERS: ATTEND Internal Medicine Nephrology
DX: C18.2 Malignant neoplasm of ascending colon (principal); C78.7 Secondary malignant neoplasm of liver and intrahepatic bile duct; N28.1 Cyst of kidney, acquired; I12.9 Hypertensive chronic kidney disease with stage 1 through stage 4 chronic kidney disease, or unspecified chronic kidney disease; N18.32 Chronic kidney disease, stage 3b; R60.0 Localized edema; I70.90 Unspecified atherosclerosis; F17.200 Nicotine dependence, unspecified, uncomplicated; R06.02 Shortness of breath
CPT/HCPCS: 76770

== ENCOUNTER 2021-12-31 13:41 | Emergency (ER) | payer MEDICARE, MEDICAID ==
[~2021-12-31] VITALS: Ht 187 cm; Wt 80.0 kg
[2021-12-31 14:48] LABS: BASOPHILS # (AUTO) 0.1 10^3/uL (0.0-0.1); BASOPHILS % (AUTO) 1 % (0-10); EOSINOPHILS # (AUTO) 1.2 10^3/uL (0.0-0.3); EOSINOPHILS % (AUTO) 10 % (0-10); HEMATOCRIT 38 % (40-54); HEMOGLOBIN 12.4 g/dL (13.3-17.7); LYMPHOCYTES # (AUTO) 1.5 10^3/uL (1.0-4.0); LYMPHOCYTES % (AUTO) 13 % (12-44); MEAN CORPUSCULAR HEMOGLOBIN 28 pg (25-34); MEAN CORPUSCULAR HGB CONC 33 g/dL (32-36); MEAN CORPUSCULAR VOLUME 84 fL (80-99); MEAN PLATELET VOLUME 10.5 fL (9.0-12.2); MONOCYTES % (AUTO) 9 % (0-12); NEUTROPHILS # (AUTO) 8.1 10^3/uL (1.8-7.8); NEUTROPHILS % (AUTO) 67 % (42-75); PLATELET COUNT 193 10^3/uL (130-400)
[2021-12-31 14:49] LABS: ALBUMIN 3.7 GM/DL (3.2-4.5)
[2021-12-31 14:50] LABS: POTASSIUM 4.6 MMOL/L (3.6-5.0)
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
[2021-12-31 14:52] LABS: TOTAL PROTEIN 7.6 GM/DL (6.4-8.2)
[2021-12-31 14:54] LABS: BILIRUBIN,TOTAL 0.9 MG/DL (0.1-1.0); INR 1.2 (0.8-1.4); PROTHROMBIN TIME PATIENT 15.8 SEC (12.2-14.7)
[2021-12-31 14:56] LABS: CREATININE SERUM 2.13 MG/DL (0.60-1.30)
--- NOTE | 2021-12-31 15:32 | Diagnostic Imaging Report ---
INDICATION: Cough, pneumonia Frontal chest obtained at 3:01 p.m. and compared to 07/13/2020 Heart is normal in size. Mediastinal silhouette is unremarkable. There is underlying COPD change. There is new diffuse interstitial infiltrate as well as alveolar infiltrate in the right upper lobe. There is no pneumothorax or pleural fluid. IMPRESSION: New diffuse interstitial infiltrates as well as some alveolar infiltrate in right upper lobe. Underlying pneumonia cannot be excluded. Short-term follow-up is recommended with chest CT if this does not resolve. Dictated by: Dictated on workstation # [id number]
[2021-12-31] MEDS ORDERED: AZIT250T12 PO (16:20)
[2021-12-31] MEDS ORDERED: CEFD300C3 PO (16:20)
[2021-12-31] MEDS ORDERED: cefTRIAXone 1 GM PRE-MIX 50 ML IV STA (16:22)
[2021-12-31] MEDS ORDERED: AZITHROMYCIN 250 MG TAB (ZITHROMAX) PO ONE (16:24)
[2021-12-31] MEDS ORDERED: cefTRIAXone 1 GM PRE-MIX 50 ML IV ONE (16:30)
[2021-12-31 17:01] VITALS: BP 124/69
[2022-01-01] MEDS ORDERED: AZITHROMYCIN 250 MG TAB (ZITHROMAX) PO SCH (09:00)
== END 2021-12-31 17:01 | disposition home or self-care (01) ==
LOC: EDUNIT# 13:41 → ER 13:43
DX: J18.9 Pneumonia, unspecified organism (principal); Z85.038 Personal history of other malignant neoplasm of large intestine; Z85.05 Personal history of malignant neoplasm of liver; F17.210 Nicotine dependence, cigarettes, uncomplicated; Z92.21 Personal history of antineoplastic chemotherapy; Z90.49 Acquired absence of other specified parts of digestive tract
CPT/HCPCS: 36415; 71045; 80053; 83605; 85025; 85610; 85730; 87040; 96365

== ENCOUNTER 2022-01-30 19:02 | Inpatient (IN) | payer MEDICARE, MEDICAID ==
[~2022-01-30] VITALS: Ht 187.9 cm; Wt 76.1 kg
[~2022-01-30 19:02] MED LIST changes: +AZIT250T12 PO; +CEFD300C3 PO
[2022-01-30] MEDS ORDERED: LACTATED RINGERS 1,000 ML IV ONE (19:15)
[2022-01-30] MEDS ORDERED: ONDANSETRON 4 MG/2 ML (SDV) Z0FRAN IVP ONE (19:15)
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
[2022-01-30 19:30] LABS: BASOPHILS % (AUTO) 0 % (0-10); EOSINOPHILS % (AUTO) 0 % (0-10); LYMPHOCYTES # (AUTO) 0.2 10^3/uL (1.0-4.0); MONOCYTES % (AUTO) 0 % (0-12)
[2022-01-30 19:32] LABS: HEMATOCRIT 37 % (40-54); HEMOGLOBIN 12.4 g/dL (13.3-17.7); LYMPHOCYTES % (AUTO) 62 % (12-44); MEAN CORPUSCULAR HEMOGLOBIN 27 pg (25-34); MEAN CORPUSCULAR HGB CONC 34 g/dL (32-36); MEAN CORPUSCULAR VOLUME 79 fL (80-99); MEAN PLATELET VOLUME 11.8 fL (9.0-12.2); NEUTROPHILS # (AUTO) 0.1 10^3/uL (1.8-7.8); NEUTROPHILS % (AUTO) 38 % (42-75); PLATELET COUNT 69 10^3/uL (130-400)
[2022-01-30 19:41] LABS: WHITE BLOOD COUNT 0.3 10^3/uL (4.3-11.0)
[2022-01-30 19:45] VITALS: BP 110/67
[2022-01-30] MEDS ORDERED: CEFEPIME INJECTION 1,000 MG in NS (IVPB) 50 ML IV ONE (19:45)
--- NOTE | 2022-01-30 19:48 | Diagnostic Imaging Report ---
Chest 1 view, AP/PA only. Indication: Weakness. Comparison: 12/31/2021. Findings: Worsening of right mid and upper lung zone consolidations. Patchy reticular opacities have developed in the left upper lung zone. No pleural effusion or pneumothorax. Impression: 1. Worsening of right-sided pulmonary opacities are most likely on the basis of pneumonia or asymmetric edema. 2. Continued follow-up is recommended as neoplasm should be excluded. Dictated by: Dictated on workstation # [id number]
[2022-01-30 19:52] LABS: ALBUMIN 2.9 GM/DL (3.2-4.5); BILIRUBIN,TOTAL 0.6 MG/DL (0.1-1.0); CALCIUM 7.9 MG/DL (8.5-10.1); CREATININE SERUM 7.33 MG/DL (0.60-1.30); MAGNESIUM 3.3 MG/DL (1.6-2.4); TOTAL PROTEIN 5.8 GM/DL (6.4-8.2)
[2022-01-30 19:55] LABS: INR 1.1 (0.8-1.4); PROTHROMBIN TIME PATIENT 14.7 SEC (12.2-14.7)
[2022-01-30] MEDS ORDERED: LIDOCAINE UROJET 2% GEL 10 ML PKG TOP ONE (20:00)
[2022-01-30] MEDS ORDERED: RT-ALBUTEROL SULF 2.5 MG/3 ML PRE-MIX VIAL INH STA (20:05)
[2022-01-30] MEDS ORDERED: NS IV 1000 ML 1,000 ML IV SCH (20:15)
[2022-01-30] MEDS ORDERED: DEXTROSE 50% 50 ML (IMS) SYR IV ONE (20:15)
[2022-01-30] MEDS ORDERED: CALCIUM CHLORIDE 1 GM/10 ML (IMS) SYR INJ ONE (20:15)
[2022-01-30] MEDS ORDERED: inSUlin (REGULAR) HUMAN 1 UNIT/0.01 ML (CHARGE PER UNIT) IV ONE (20:15)
[2022-01-30] MEDS ORDERED: SODIUM POLYSTYRENE POWDER 15 GM BOTTLE PO ONE (20:15)
[2022-01-30 20:24] LABS: BILIRUBIN,URINE NEGATIVE (NEGATIVE); CLARITY,URINE CLEAR; COLOR,URINE YELLOW; GLUCOSE, URINE (UA) NEGATIVE (NEGATIVE); KETONES,URINE NEGATIVE (NEGATIVE); LEUKOCYTE ESTERASE ,URINE TRACE (NEGATIVE); NITRITE,URINE NEGATIVE (NEGATIVE); PROTEIN,URINE TRACE (NEGATIVE)
[2022-01-30 20:45] LABS: BACTERIA,URINE FEW /HPF; RBC,URINE TNTC /HPF
[2022-01-30 23:07] VITALS: BP 124/78
[2022-01-30] MEDS: LACTATED RINGERS 1,000 ML IV SCH (23:08)
[2022-01-30] MEDS ORDERED: RT-ALBUTEROL SULF 2.5 MG/3 ML PRE-MIX VIAL INH PRN (23:15)
[2022-01-30 23:30] VITALS: BP 107/69
[2022-01-31] MEDS: LACTATED RINGERS 1,000 ML IV SCH ×4 (03:18→09:57)
[2022-01-31 04:03] VITALS: BP 112/68
[2022-01-31 04:21] LABS: BASOPHILS % (AUTO) 0 % (0-10); HEMOGLOBIN 10.1 g/dL (13.3-17.7)
[2022-01-31 04:23] LABS: EOSINOPHILS % (AUTO) 0 % (0-10); HEMATOCRIT 30 % (40-54); LYMPHOCYTES # (AUTO) 0.2 10^3/uL (1.0-4.0); LYMPHOCYTES % (AUTO) 80 % (12-44); MEAN CORPUSCULAR HEMOGLOBIN 26 pg (25-34); MEAN CORPUSCULAR HGB CONC 33 g/dL (32-36); MEAN CORPUSCULAR VOLUME 79 fL (80-99); MEAN PLATELET VOLUME 11.7 fL (9.0-12.2); MONOCYTES % (AUTO) 5 % (0-12); NEUTROPHILS % (AUTO) 15 % (42-75); PLATELET COUNT 55 10^3/uL (130-400)
[2022-01-31 04:28] LABS: WHITE BLOOD COUNT 0.2 10^3/uL (4.3-11.0)
[2022-01-31 04:36] LABS: ALBUMIN 2.5 GM/DL (3.2-4.5)
[2022-01-31 04:38] LABS: CALCIUM 7.7 MG/DL (8.5-10.1)
[2022-01-31 04:39] LABS: TOTAL PROTEIN 4.8 GM/DL (6.4-8.2)
[2022-01-31 04:41] LABS: BILIRUBIN,TOTAL 0.5 MG/DL (0.1-1.0)
[2022-01-31 04:42] LABS: CREATININE SERUM 6.68 MG/DL (0.60-1.30)
[2022-01-31 04:56] LABS: POTASSIUM 7.4 MMOL/L (3.6-5.0)
[2022-01-31] MEDS ORDERED: LACTATED RINGERS 1,000 ML IV SCH (07:00)
[2022-01-31] MEDS ORDERED: ACETAMINOPHEN 500 MG TAB (TYLENOL) PO PRN (07:00)
[2022-01-31] MEDS ORDERED: ONDANSETRON 4 MG/2 ML (SDV) Z0FRAN IVP PRN ×2 (07:00→13:00)
[2022-01-31] MEDS ORDERED: CEFEPIME INJECTION 1,000 MG in NS (IVPB) 50 ML IV SCH ×2 (07:00→21:00)
[2022-01-31 07:36] VITALS: BP 135/77
[2022-01-31] MEDS ORDERED: SODIUM POLYSTYRENE POWDER 15 GM BOTTLE PO SCH (09:00)
[2022-01-31 11:21] VITALS: BP 111/71
[2022-01-31] MEDS ORDERED: morphine INJ 4 MG/ML 1 ML (VIAL/SYRINGE) IV PRN (13:00)
[2022-01-31] MEDS ORDERED: LORazepam ORAL CONCENTRATE 2 MG/ML 30 ML (ATIVAN) PO PRN (13:00)
[2022-01-31] MEDS ORDERED: GLYCOPYRROLATE 0.2 MG/ML (ROBINUL) 2 ML VIAL IV PRN (13:00)
[2022-01-31] MEDS ORDERED: LORazepam 1 MG (ATIVAN) TAB SL PRN (13:00)
[2022-01-31] MEDS ORDERED: RT-ALBUTEROL/IPRATROPIUM 3 ML (DUONEB) VIAL INH PRN (13:00)
[2022-01-31] MEDS ORDERED: ARTIFICAL TEARS 0.4 ML UNIT DOSE (REFRESH PLUS) OU PRN (13:00)
[2022-01-31] MEDS ORDERED: PROMETHAZINE INJ 25 MG/ML (PHENERGAN) AMP IVP PRN (13:00)
[2022-01-31] MEDS ORDERED: SALIVA SUBSTITUTE 60 ML SPRAY(MOUTHKOTE) MM PRN (13:00)
[2022-01-31] MEDS ORDERED: ACETAMINOPHEN 650 MG SUPP (TYLENOL) PR PRN (13:00)
[2022-01-31] MEDS ORDERED: BISACODYL 10 MG SUPP (DULCOLAX) PR PRN (13:00)
[2022-01-31] MEDS: LIDOCAINE UROJET 2% GEL 10 ML PKG TOP ONE ×2 (13:52→13:55)
--- NOTE | 2022-01-31 15:12 | History & Physical ---
HPI History of Present Illness: 76 yo M with metastatic colon cancer that presented with extreme generalized weakness. Patient states that he has not been able to get out of bed for the last few days and has been laying in feces and urine because of the weakness. He has been getting chemo with Dr Ridley and he states that his last PET scan "lit up like a belle tree." Upon arrival labs reveal that patient is in acute renal failure with Cr 8 and BUN >200. He has had poor intake for the last week. Denies any fever or chills and denies any sick contacts. He told ER that he is ready to stop treatment and pursue hospice care which was verified by myself this AM. He would like to transition to comfort care. Source: patient Exam Limitations: no limitations Date seen by provider: Jan 31, 2022 Time Seen by Provider: 10:25 Attending Physician No,Local Physician PCP Admitting Physician: Jeffery Adame MD Attending Physician: Jeffery Adame MD Consult Date of Admission Jan 30, 2022 at 19:39 Home Medications Home Medications Reviewed patient Home Medication Reconciliation performed by pharmacy medication reconciliations cdl service technician and/or nursing. Patients Allergies have been reviewed. Allergies Coded Allergies: No Known Drug Allergies (Unverified , 03/09/20) HZF-Xzqari-Psoigc Hx Patient Social History Drug of Choice: Denies Smoking Status: Current Everyday Smoker 2nd Hand Smoke Exposure: Yes Recent Hopitalizations: Yes (END OF FEBRUARY 2020/BEGINNING MAR--"BLOCKED COLON") Alcohol Use?: No Tobacco type used: Cigarettes Have you traveled recently?: No Immunizations Up To Date Influenza Vaccine Up-to-Date: No; Not Current First/Initial COVID19 Vaccinat: 2020 Second COVID19 Vaccination Rogers: 2020 Third COVID19 Vaccination Date: N/A COVID19 Vaccine Project Geophysicist: UNKNOWN Past Medical History Metastatic Colon Ca Family Medical History Significant Family History: Diabetes Review of Systems ([facility]) Constitutional: malaise, weakness, weight loss EENTM: no symptoms reported; No mouth pain, No nose congestion, No nose pain Respiratory: No cough; dyspnea on exertion Cardiovascular: no symptoms reported; No chest pain; edema; No palpitations Gastrointestinal: abdominal pain, diarrhea, loss of appetite; No nausea, No vomiting Genitourinary: no symptoms reported; No dysuria, No frequency, No hematuria Musculoskeletal: back pain Skin: no symptoms reported Psychiatric/Neurological: Anxiety, Depressed Reviewed Test Results Reviewed Test Results Lab Laboratory Tests Test 01/30/22 19:15 01/30/22 19:17 01/30/22 20:18 01/31/22 04:10 Range/Units White Blood Count 0.3 *L 0.2 *L 4.3-11.0 10^3/uL Red Blood Count 4.68 3.82 L 4.30-5.52 10^6/uL Hemoglobin 12.4 L 10.1 L 13.3-17.7 g/dL Hematocrit 37 L 30 L 40-54 % Mean Corpuscular Volume 79 L 79 L 80-99 fL Mean Corpuscular Hemoglobin 27 26 25-34 pg Mean Corpuscular Hemoglobin Concent 34 33 32-36 g/dL Red Cell Distribution Width 13.4 13.4 10.0-14.5 % Platelet Count 69 L 55 L 130-400 10^3/uL Mean Platelet Volume 11.8 11.7 9.0-12.2 fL Immature Granulocyte % (Auto) 0 0 % Neutrophils (%) (Auto) 38 L 15 L 42-75 % Lymphocytes (%) (Auto) 62 H 80 H 12-44 % Monocytes (%) (Auto) 0 5 0-12 % Eosinophils (%) (Auto) 0 0 0-10 % Basophils (%) (Auto) 0 0 0-10 % Neutrophils # (Auto) 0.1 L 0.0 L 1.8-7.8 10^3/uL Lymphocytes # (Auto) 0.2 L 0.2 L 1.0-4.0 10^3/uL Monocytes # (Auto) 0.0 0.0 0.0-1.0 10^3/uL Eosinophils # (Auto) 0.0 0.0 0.0-0.3 10^3/uL Basophils # (Auto) 0.0 0.0 0.0-0.1 10^3/uL Immature Granulocyte # (Auto) 0.0 0.0 0.0-0.1 10^3/uL Percent Immature Platelet Fraction 3.3 3.8 0.0-7.6 % Prothrombin Time 14.7 12.2-14.7 SEC INR Comment 1.1 0.8-1.4 Activated Partial Thromboplast Time 28 24-35 SEC Sodium Level 131 L 133 L 135-145 MMOL/L Potassium Level 8.0 #*H 7.4 *H 3.6-5.0 MMOL/L Chloride Level 102 106 98-107 MMOL/L Carbon Dioxide Level 10 L 8 *L 21-32 MMOL/L Anion Gap 19 H 19 H 5-14 MMOL/L Blood Urea Nitrogen 206 *H 211 *H 7-18 MG/DL Creatinine 7.33 H 6.68 #H 0.60-1.30 MG/DL Estimat Glomerular Filtration Rate 7 8 BUN/Creatinine Ratio 28 19 Glucose Level 141 H 126 H 70-105 MG/DL Lactic Acid Level 1.99 0.50-2.00 MMOL/L Calcium Level 7.9 L 7.7 L 8.5-10.1 MG/DL Corrected Calcium 8.8 8.9 8.5-10.1 MG/DL Magnesium Level 3.3 H 1.6-2.4 MG/DL Total Bilirubin 0.6 0.5 0.1-1.0 MG/DL Aspartate Amino Transf (AST/SGOT) 33 27 5-34 U/L Alanine Aminotransferase (ALT/SGPT) 38 32 0-55 U/L Alkaline Phosphatase 103 75 40-136 U/L Total Protein 5.8 L 4.8 L 6.4-8.2 GM/DL Albumin 2.9 L 2.5 L 3.2-4.5 GM/DL Amylase Level 91 25-125 U/L Lipase 123 H 8-78 U/L Procalcitonin 1.44 H <0.10 NG/ML Influenza Type A (RT-PCR) Not Detected Not Detecte Influenza Type B (RT-PCR) Not Detected Not Detecte SARS-CoV-2 RNA (RT-PCR) Not Detected Not Detecte Urine Color YELLOW Urine Clarity CLEAR Urine pH 5.0 5-9 Urine Specific [place] 1.025 H 1.016-1.022 Urine Protein TRACE H NEGATIVE Urine Glucose (UA) NEGATIVE NEGATIVE Urine Ketones NEGATIVE NEGATIVE Urine Nitrite NEGATIVE NEGATIVE Urine Bilirubin NEGATIVE NEGATIVE Urine Urobilinogen 0.2 < = 1.0 MG/DL Urine Leukocyte Esterase TRACE H NEGATIVE Urine RBC (Auto) 3+ H NEGATIVE Urine RBC TNTC H /HPF Urine WBC 2-5 /HPF Urine Squamous Epithelial Cells 2-5 /HPF Urine Crystals NONE /LPF Urine Bacteria FEW H /HPF Urine Casts NONE /LPF Urine Mucus NEGATIVE /LPF Urine Culture Indicated CULTURE PENDING Physical Exam-([facility]) Physical Exam Vital Signs VS - Last 72 Hours, by Label 01/30/22 01/30/22 01/30/22 01/30/22 19:05 19:45 20:17 21:50 Temp 34.3 35.5 Pulse 66 75 77 Resp 14 20 14 B/P (MAP) 124/78 (93) 110/67 (81) 131/65 Pulse Ox 98 99 99 O2 Delivery Room Air Room Air Room Air 01/30/22 01/30/22 01/30/22 01/31/22 22:15 23:07 23:30 01:23 Temp 36.3 35.6 Pulse 66 76 75 Resp 20 B/P (MAP) 107/69 (82) Pulse Ox 98 99 O2 Delivery Room Air Room Air FiO2 21 01/31/22 01/31/22 01/31/22 01/31/22 04:03 07:00 07:36 08:00 Temp 36.0 36.5 Pulse 74 74 74 Resp 20 20 B/P (MAP) 112/68 (83) 135/77 (96) Pulse Ox 98 O2 Delivery Room Air Room Air Room Air 01/31/22 01/31/22 10:06 11:21 Temp 35.7 Pulse 76 Resp 18 B/P (MAP) 111/71 (84) Pulse Ox 99 O2 Delivery Room Air Room Air O2 Flow Rate 0.00 0.00 0.00 Capillary Refill : Less Than 3 Seconds General Appearance: no apparent distress, thin HEENT: PERRL/EOMI Respiratory: chest non-tender, no accessory muscle use, crackles, rhonchi, wheezing Cardiovascular: regular rate, rhythm, no murmur Gastrointestinal: soft; No distended, No rebound Back: no CVA tenderness Extremities: non-tender, no calf tenderness, pedal edema (2+ pitting edema bilaterally) Neurologic/Psychiatric: alert, oriented x 3 Skin: normal color, warm/dry Assessment/Plan Assessment/Plan Admission Status: Observation (1) Acute renal failure Status: Acute Assessment & Plan: - 3 months ago patient had normal renal function, now in acute renal failure, he dose not want aggressive treatment and desires Hospice care, patient placed on comfort care (2) Colon cancer metastasized to multiple sites Status: Acute Assessment & Plan: - Patient desires discontinuation of aggressive treatment (3) Hyperkalemia Status: Acute (4) Severe neutropenia Status: Acute (5) Microcytic anemia Status: Acute (6) Generalized weakness Status: Acute Clinical Quality Measures Smoking Cessation Counseling: Counseling-Symptomatic: 3-10 Minutes JEFFERY ADAME MD Jan 31, 2022 15:12
== END 2022-01-31 17:40 | disposition hospice, home (50) | DRG 682 ==
LOC: EDUNIT# 19:02 → ER 19:04 → 4TH 19:39
PROVIDERS: ADMIT Family Medicine; ATTEND Family Medicine
DX: N17.9 Acute kidney failure, unspecified (principal); J18.9 Pneumonia, unspecified organism; C18.9 Malignant neoplasm of colon, unspecified; C79.89 Secondary malignant neoplasm of other specified sites; J44.0 Chronic obstructive pulmonary disease with (acute) lower respiratory infection; E87.5 Hyperkalemia; D70.9 Neutropenia, unspecified; D64.9 Anemia, unspecified; R53.1 Weakness; Z51.5 Encounter for palliative care; Z20.822 Contact with and (suspected) exposure to COVID-19; F17.210 Nicotine dependence, cigarettes, uncomplicated; Z92.21 Personal history of antineoplastic chemotherapy; Z66 Do not resuscitate
CPT/HCPCS: 36415; 71045; 80053; 81000; 82150; 83605; 83690; 83735; 84145; 85025; 85610; 85730; 87040; 87088; 87636; 93041; 94640